=== PATIENT | female | born 1980 | race African-American/Black ===

== ENCOUNTER 2023-06-27 22:35 | Emergency (ER) | payer OTHER, SELFPAY ==
[2023-06-27 22:39] VITALS: BP 124/68; PULSE 65; RESP 18; TEMP 36.6; O2SAT 100; BMI 47.5
--- OUTSIDE RECORDS SUMMARY | 2023-06-28 00:47 | XMS_ITS | Continuity of Care Document ---
Author Name Unknown Organization [facility] Hussein lt Address [address] [place] [address]- Care Team Providers Care Medical Fee Clerk Name Role Phone James FONG, Emma Oreilly Primary Care Physician [phone] Encounter [facility] Date(s): 08/10/20 - 09/09/20 [facility] Adult [address] [place] [address]- [facility] Attending Physician: Candy Jones Admitting Physician: AdmtrCandy Referring Physician: Admtr, ArEstrada Allergies, Adverse Reactions, Alerts No Known Medication Allergies Immunizations Given and Recorded Vaccine Date Status Refusal Reason tetanus/diphtheria/pertussis, acel(Tdap) 1 02/21/18 Given 1Result Comment: [02/21/2018] [facility] [id number] 842 01 Medications aspirin 81 mg oral tablet 1 tablet = 81 mg, By Mouth, Daily, # 90 tablet, 0 Refills, Maintenance, 02/13/19 11:23:57 EDT, Tablet Start Date: 02/13/19 Status: Ordered Bydureon BCise 2 mg/0.85 mL subcutaneous suspension, extended release = 2 mg, Subcutaneous Infusion, Every 7 days, Take 2mg once weekly on the same day. E11.65, # 3.4 mL, 5 Refills, Maintenance, 06/14/20 9:36:00 EDT, [id number], 161.1, cm, 05/30/20 8:03:00 EDT,Height, 149.3, kg, 04/27/20 2:13:00 EDT, Dry Weight Start Date: 06/14/20 Status: Ordered cholecalciferol 50,000 intl units oral capsule 1 capsule = 50,000 International_Units, By Mouth, Every week, # 5 capsule, 0 Refills, Maintenance, 02/15/20 15:08:00 EDT, Capsule, [facility]/pharmacy #4471, 161.1, cm, 02/15/20 14:50:00 EDT, Height, 141, kg, 04/19/19 4:24:00 EDT, Dry Weight Start Date: 02/15/20 Status: Ordered ferrous sulfate 325 mg oral tablet See Instructions, 1 tablet By Mouth every other day, # 45 tablet, 3 Refills, Maintenance, 06/14/20 14:43:00 EDT, [facility]/pharmacy #2339, 161.1, cm, 05/30/20 8:03:00 EDT, Height, 149.3, kg, 04/27/20 2:13:00 EDT, Dry Weight Start Date: 06/14/20 Status: Ordered Freestyle Lite Lancets See Instructions, # 100 each, Refills 11, Tot. Refills 11, Maintenance, dm 2 E11.9 check blood sugars twice a day and as needed, 05/10/20 11:16:00 EDT, Supply, 161.1, cm, 04/28/20 11:33:00 EDT, Height, 149.3, kg, 04/27/20 2:13:00 EDT, Dry Weight Start Date: 05/10/20 Status: Ordered Freestyle Lite Monitor See Instructions, # 1 each, Maintenance, dm 2 E11.9 check blood sugars twice a day and as needed, 05/10/20 11:16:00 EDT, Supply, 161.1, cm, 04/28/20 11:33:00 EDT, Height, 149.3, kg, 04/27/20 2:13:00 EDT, Dry Weight Start Date: 05/10/20 Status: Ordered Freestyle Lite Test Strips See Instructions, # 100 each, Refills 11, Tot. Refills 11, Maintenance, dm 2 E11.9 check blood sugars twice a day and as needed, 05/10/20 11:16:00 EDT, Supply, 161.1, cm, 04/28/20 11:33:00 EDT, Height, 149.3, kg, 04/27/20 2:13:00 EDT, Dry Weight Start Date: 05/10/20 Status: Ordered metFORMIN 1000 mg oral tablet 1 tablet = 1,000 mg, By Mouth, 2 times a day, This is correct dose. 2000mg total daily dose., # 60 tablet, 5 Refills, Maintenance, 05/06/20 10:27:00 EDT, [facility]/pharmacy #2339, 161.1, cm, 04/28/20 11:33:00 EDT, Height, 149.3, kg, 04/27/20 2:13:00 EDT, D... Start Date: 05/06/20 Status: Ordered sertraline 50 mg oral tablet See Instructions, 1/2 tablet By Mouth Daily for 1 week then 1 tablet thereafter, # 30 tablet, 1 Refills, Maintenance, 07/02/20 9:23:00 EDT, [facility]/pharmacy #2339, 161.1, cm, 06/20/20 8:16:00 EDT, Height, 149.3, kg, 04/27/20 2:13:00 EDT, Dry Weight Start Date: 07/02/20 Status: Ordered terbinafine 1% topical cream 1 application, Topically, 2 times a day, # 15 Gm, 0 Refills, Maintenance, 04/18/20 15:15:00 EDT, Cream, [facility]/pharmacy #2339, 1 application Topically 2 times a day, 161.1, cm, 02/15/20 14:50:00 EDT, Height, 141, kg, 04/19/19 4:24:00 EDT, Dry Weight Start Date: 04/18/20 Status: Ordered Trulicity Pen 0.75 mg/0.5 mL subcutaneous solution = 0.75 mg, Subcutaneous Injection, Every 7 days, labs needed, # 4 each, 1 Refills, Maintenance, 08/31/20 9:35:00 EDT, [id number], 161.1, cm, 07/21/20 10:06:00 EDT, Height, 149.3, kg, 202:13:00 EDT, Dry Weight Start Date: 08/31/20 Stop Date: 10/26/20 Status: Ordered Problem List Condition Effective Dates Status Health Status Inform ant Morbid obesity with BMI of 6 0.0-69.9, adult(Confirmed) Active Chest pain(Confirmed) Active Depression(Confirmed) Active Iron deficiency anemia(Confirmed) Active Diabetes mellitus type II, uncontrolled(Confirmed) Active Social History Social History Type Response Smoking Status Never smoker; Tobacc o user in household: No entered on: 02/21/18 Sex
--- OUTSIDE RECORDS SUMMARY | 2023-06-28 00:47 | XMS_ITS | Continuity of Care Document ---
Author Name Unknown Organization [facility] Hussein lt Address [address] [place] [address]- Care Team Providers Care Experience Specialist Name Role Phone Casa FONG, Kay Villela Primary Care Physician Encounter [facility] Date(s): 10/10/21 - 11/19/21 [facility] Adult [address] [place] [address]- Attending Physician: Kay Cormier NP Referring Physician: Emma Ramirez NP Allergies, Adverse Reactions, Alerts Substance Reaction Severity Status amoxicillin throat closing Active clarithromycin throat closing Active vancomycin rash , itchy Persistent Moderate Active Immunizations Given and Recorded Vaccine Date Status Refusal Reason SARS-CoV-2 (COVID-19) mRNA BNT-162b2 vac 1 01/01/21 Recorded SARS-CoV-2 (COVID-19) mRNA BNT-162b2 vac 2 12/11/20 Recorded SARS-CoV-2 (COVID-19) mRNA BNT-162b2 vac 3 12/11/20 Recorded tetanus/diphtheria/pertussis, acel(Tdap) 4 02/21/18 Given 1Result Comment: Covid 19 mRNA lot [id number] exp 05-01-2021 [facility] 2Result Comment: covid-19 mRNa lot [id number] exp 03-31-2021 [facility] 3Result Comment: Covid-19 mRNA lot [id number] exp 03-31-2021 [facility] 4Result Comment: [02/21/2018] [facility] [id number] 842 01 Medications acetaminophen 325 mg oral tablet 650 mg, 2, tablet, By Mouth, Every 4 hours, Refills 0, Maintenance, 08/09/21 11:27:00 EDT, Partial fill upon patient request if the prescription is for a schedule II opioid drug. Start Date: 08/09/21 Status: Ordered aspirin 81 mg oral tablet 1 tablet = 81 mg, By Mouth, Daily, # 90 tablet, 0 Refills, Maintenance, 02/13/19 11:23:57 EDT, Tablet Start Date: 02/13/19 Status: Ordered Colace sodium 100 mg oral capsule 100 mg, 1, capsule, By Mouth, 2 times a day, with plenty of water, # 60 capsule, Refills 0, Tot. Refills 0, Maintenance, 08/09/21 11:27:00 EDT, Route to Pharmacy Electronically, [facility], Partial fill upon patient request if the prescr... Start Date: 08/09/21 Status: Ordered EPINEPHrine 0.3 mg injectable solution = 0.3 mg, Intramuscular, Once, PRN Anaphylactic Reaction, Use for anaphylactic reaction. may repeatif necessary, # 2 each, 0 Refills, Soft Stop, 01/10/21 12:01:00 EST, [facility]/pharmacy #[id number], Partial fill upon patient request if the prescription is for... Start Date: 01/10/21 Status: Ordered Freestyle Lite Lancets See Instructions, [...] sugars twice a day and as needed, 08/16/21 16:20:00 EDT, Supply, 160.02, cm, 08/15/21 10:52:00 EDT, Height, 137.4, kg, 08/08/21 9:30:00EDT, Dry Weight Start Date: 08/16/21 Status: Ordered Freestyle Lite Test Strips See Instructions, # 100 each, Refills 11, Tot. Refills 11, Maintenance, dm 2 E11.9 check blood sugars twice a day and as needed, 05/10/20 11:16:00 EDT, Supply, 161.1, cm, 04/28/20 11:33:00 EDT, Height, 149.3, kg, 04/27/20 2:13:00 EDT, Dry Weight Start Date: 05/10/20 Status: Ordered levothyroxine 0.1 mg oral tablet 1 tablet, By Mouth, Daily, # 30 tablet, 5 Refills, [facility] STORE 37002, 160.02, cm, 08/09/21 4:06:00 EDT, Height, 137.4, kg, 08/08/21 9:30:00 EDT, Dry Weight Start Date: 08/13/21 Status: Ordered Multivitamin Tablet By Mouth, Daily, 0 Refills, Maintenance, 07/27/21 12:14:00 EDT, Partial fill upon patient request if the prescription is for a schedule II opioid drug. Start Date: 07/27/21 Status: Ordered omeprazole 20 mg oral enteric coated capsule 1 capsule = 20 mg, By Mouth, 2 times a day, # 120 capsule, 4 Refills, Maintenance, 08/09/21 11:28:00 EDT, EC Capsule, [facility], Partial fill upon patient request if the prescription is for a schedule II opioid drug., 160.02, cm, ... Start Date: 08/09/21 Status: Ordered Trulicity Pen 1.5 mg/0.5 mL subcutaneous solution See Instructions, 0.5 ML SUBCUTANEOUS INJECTION EVERY WEEK,INSTR:ROTATE INJECTION SITES, # 2 Unknown, 6 Refills, 07/29/21 14:27:00 EDT, [facility]/pharmacy #[id number], 165, cm, 07/27/21 12:33:00 EDT, Height, 140.9, kg, 07/21/21 17:38:00 EDT, Dry Weight Start Date: 07/29/21 Status: Ordered Problem List Condition Effective Dates Status Health Status Inform ant Binge eating disorder, moder ate, in partial remission(Confirmed) Active Morbid obesity with BMI of 6 0.0-69.9, adult(Confirmed) Active Depression(Confirmed) Active Controlled diabetes mellitus(Confirmed) Active History of Helicobacter pylo ri infection(Confirmed) Active Iron deficiency anemia(Confirmed) Active Social History Social History Type Response Smoking Status Never smoker; Tobacc o user in household: No entered on: 02/21/18 Sex
--- OUTSIDE RECORDS SUMMARY | 2023-06-28 00:47 | XMS_ITS | Continuity of Care Document ---
Author Name Unknown Organization [facility] Address Unknown Care Team Providers Care Websphere Portal Developer Name Role Phone Emma Ramirez NP Primary Care Physician [phone] Encounter [facility] [place] Date(s): 07/31/21 - 08/07/21 [facility] Attending Physician: Aristides Oleary MD Referring Physician: Emma Ramirez NP Allergies, Adverse Reactions, Alerts Substance Reaction Severity Status amoxicillin throat closing Active clarithromycin throat closing Active Immunizations Given and Recorded Vaccine Date Status Refusal Reason SARS-CoV-2 (COVID-19) mRNA BNT-162b2 vac 1 01/01/21 Recorded SARS-CoV-2 (COVID-19) mRNA BNT-162b2 vac 2 12/11/20 Recorded SARS-CoV-2 (COVID-19) mRNA BNT-162b2 vac 3 12/11/20 Recorded tetanus/diphtheria/pertussis, acel(Tdap) 4 02/21/18 Given 1Result Comment: Covid 19 mRNA lot [id number] exp 05-01-2021 [facility] 2Result Comment: covid-19 mRNa lot [id number] exp 03-31-2021 [facility] 3Result Comment: Covid-19 mRNA lot [id number] exp 03-31-2021 [facility] 4Result Comment: [02/21/2018] [facility] [id number] 842 01 Medications aspirin 81 mg oral tablet 1 tablet = 81 mg, By Mouth, Daily, # 90 tablet, 0 Refills, Maintenance, 02/13/19 11:23:57 EDT, Tablet Start Date: 02/13/19 Status: Ordered EPINEPHrine 0.3 mg injectable solution = 0.3 mg, Intramuscular, Once, PRN Anaphylactic Reaction, Use for anaphylactic reaction. may repeatif necessary, # 2 each, 0 Refills, Soft Stop, 01/10/21 12:01:00 EST, [facility]/pharmacy #[id number], Partial fill upon patient request if the [...] Ordered levothyroxine 0.1 mg oral tablet 1 tablet = 100 mcg, By Mouth, Daily, # 30 tablet, 0 Refills, Maintenance, 07/27/21 12:13:00 EDT, Tablet, Partial fill upon patient request if the prescription is for a schedule II opioid drug. Start Date: 07/27/21 Status: Ordered metFORMIN 1000 mg oral tablet 1 tablet = 1,000 mg, By Mouth, 2 times a day, # 180 tablet, 3 Refills, Maintenance, 07/29/21 14:27:00 EDT, [facility]/pharmacy #2339, 165, cm, 07/27/21 12:33:00 EDT, Height, 140.9, kg, 07/21/21 17:38:00 EDT, Dry Weight Start Date: 07/29/21 Status: Ordered Multivitamin Tablet By Mouth, Daily, 0 Refills, Maintenance, 07/27/21 12:14:00 EDT, Partial fill upon patient request if the prescription is for a schedule II opioid drug. Start Date: 07/27/21 Status: Ordered Trulicity Pen 1.5 mg/0.5 mL subcutaneous solution See Instructions, 0.5 ML SUBCUTANEOUS INJECTION EVERY WEEK,INSTR:ROTATE INJECTION SITES, # 2 Unknown, 6 Refills, 07/29/21 14:27:00 EDT, [facility]/pharmacy #2339, 165, cm, 07/27/21 12:33:00 EDT, [...] ri infection(Confirmed) Active Iron deficiency anemia(Confirmed) Active Vital Signs Most recent to oldest [Reference Range]: 1 Height 165 cm (07/31/21 4:34 PM) Weight 141.1 kg (07/31/21 4:34 PM) Pulse Rate [55-90 bpm] 134 bpm *H* (07/31/21 4:34 PM) Body Mass Index [18.5-24.99] 51.83 *>HHI* (07/31/21 4:34 PM) Blood Pressure [90-138/55-84 mm Hg] 108/ 63mm Hg (07/31/21 4:34 PM) Respiratory Rate [16-30 br/min] 16 br/mi n (07/31/21 4:34 PM) Temperature [96.8-100.4 DegF] 97.9 DegF (07/31/21 4:34 PM) Blood pressure sites Arm, right (07/31/21 4:34 PM) Temperature Route Temporal (07/31/21 4:34 PM) Weight Obtained Via Standing scale (07/31/21 4:34 PM) Social History Social History Type Response Smoking Status Never smoker; Tobacc o user in household: No entered on: 02/21/18 Sex
--- OUTSIDE RECORDS SUMMARY | 2023-06-28 00:47 | XMS_ITS | Continuity of Care Document ---
Author Name Unknown Organization [facility] Hussein lt Address [address] [place] [address]- Care Team Providers Care Party Chief Name Role Phone Emma Ramirez NP Primary Care Physician [phone] Encounter [facility] [place] Date(s): 08/10/20 - 09/09/20 [facility] Adult [address] [place] [address]- [facility] Attending Physician: Emma Ramirez NP Allergies, Adverse Reactions, Alerts No Known Medication Allergies Immunizations Given and Recorded Vaccine Date Status Refusal Reason tetanus/diphtheria/pertussis, acel(Tdap) 1 02/21/18 Given 1Result Comment: [02/21/2018] [facility] [id number] 842 01 Medications aspirin 81 mg oral [...] 0 Refills, Maintenance, 02/15/20 15:08:00 EDT, Capsule, [id number], 161.1, cm, 02/15/20 14:50:00 EDT, Height, 141, kg, 04/19/19 4:24:00 EDT, Dry Weight Start Date: 02/15/20 Status: Ordered ferrous sulfate 325 mg oral tablet See Instructions, 1 tablet By Mouth every other day, # 45 tablet, 3 Refills, Maintenance, 06/14/20 14:43:00 EDT, [facility]/pharmacy #2339, 161.1, cm, 05/30/20 8:03:00 EDT, [...] tablet, 5 Refills, Maintenance, 05/06/20 10:27:00 EDT, [facility], 161.1, cm, 04/28/20 11:33:00 EDT, Height, 149.3, kg, 04/27/20 2:13:00 EDT, D... Start Date: 05/06/20 Status: Ordered sertraline 50 mg oral tablet See Instructions, 1/2 tablet By Mouth Daily for 1 week then 1 tablet thereafter, # 30 tablet, 1 Refills, Maintenance, 07/02/20 9:23:00 EDT, [facility], 161.1, cm, 06/20/20 8:16:00 EDT, Height, 149.3, kg, 04/27/20 2:13:00 EDT, Dry Weight Start Date: 07/02/20 Status: Ordered terbinafine 1% topical cream 1 application, Topically, 2 times a day, # 15 Gm, 0 Refills, Maintenance, 04/18/20 15:15:00 EDT, Cream, [facility]/pharmacy #2339, 1 application Topically 2 times a day, 161.1, cm, 02/15/20 14:50:00 EDT, Height, 141, kg, 04/19/19 4:24:00 EDT, Dry Weight Start Date: 04/18/20 Status: Ordered Trulicity Pen 0.75 mg/0.5 mL subcutaneous solution = 0.75 mg, Subcutaneous Injection, Every 7 days, labs needed, # 4 each, 1 Refills, Maintenance, 08/31/20 9:35:00 EDT, [facility]/pharmacy #2339, 161.1, cm, 07/21/20 10:06:00 EDT, Height, 149.3, kg, :13:00 EDT, Dry Weight Start Date: 08/31/20 Stop [...]
--- OUTSIDE RECORDS SUMMARY | 2023-06-28 00:47 | XMS_ITS | Continuity of Care Document ---
Author Name Unknown Organization [facility] Hussein lt Address [address] [place] [address]- Care Team Providers Care Conditioning Coach Name Role Phone James FONG, Emma Oreilly Primary Care Physician [place] [facility] 05/21/21 - 06/20/21 [facility] Adult [address] [place] [address]- Allergies, Adverse Reactions, Alerts Substance Reaction Severity Status amoxicillin/clarithromycin/omeprazole 1 Swelling of th roat Active 1No SOB, Resolved with Benedryl 50mg PO. Immunizations Given and Recorded Vaccine Date Status Refusal Reason SARS-CoV-2 (COVID-19) mRNA BNT-162b2 vac 1 01/01/21 Recorded SARS-CoV-2 (COVID-19) mRNA BNT-162b2 vac 2 12/11/20 Recorded SARS-CoV-2 (COVID-19) mRNA BNT-162b2 vac 3 12/11/20 Recorded tetanus/diphtheria/pertussis, acel(Tdap) 4 02/21/18 Given 1Result Comment: Covid 19 mRNA lot [id number] exp 05-01-2021 [facility] 2Result Comment: covid-19 mRNa lot [id number] exp 03-31-2021 [facility] 3Result Comment: Covid-19 mRNA lot [id number] exp 03-31-2021 [facility] 4Result Comment: [02/21/2018] [facility] [id number] 842 01 Medications aspirin 81 mg oral [...] mL, 5 Refills, Maintenance, 06/14/20 9:36:00 EDT, [facility]/pharmacy #2339, 161.1, cm, 05/30/20 8:03:00 EDT,Height, 149.3, kg, 04/27/20 2:13:00 EDT, Dry Weight Start Date: 06/14/20 Status: Ordered EPINEPHrine 0.3 mg injectable solution = 0.3 mg, Intramuscular, Once, PRN Anaphylactic Reaction, Use for anaphylactic reaction. may repeatif necessary, # 2 each, 0 Refills, Soft Stop, 01/10/21 12:01:00 EST, [facility]/pharmacy #[id number], Partial fill upon patient request if [...] Weight Start Date: 05/10/20 Status: Ordered levothyroxine 0.112 mg oral tablet 1 tablet = 112 mcg, By Mouth, Daily, Labs due June 2021, # 90 tablet, 0 Refills, Maintenance, 03/21/21 13:09:00 EDT, Tablet, [facility]/pharmacy #2339, Partial fill upon patient request if the prescription is for a schedule II opioid drug., 161.1, cm, ... Start Date: 03/21/21 Status: Ordered metFORMIN 1000 mg oral tablet 1 tablet = 1,000 mg, By Mouth, 2 times a day, # 180 tablet, 3 Refills, Maintenance, 10/06/20 11:00:00 EST, [facility]/pharmacy #2339, 161.1, cm, 10/06/20 10:55:00 EST, Height, 149.3, kg, 04/27/20 2:13:00 EDT, Dry Weight Start Date: 10/06/20 Status: Ordered Protonix 20 mg oral delayed release tablet 1 tablet = 20 mg, By Mouth, 2 times a day, # 28 tablet, 0 Refills, Maintenance, 05/11/21 10:56:00 EDT, CR Tablet, 161, cm, 05/05/21 11:42:00 EDT, Height, 149.3, kg, 04/27/20 2:13:00 EDT, Dry Weight Start Date: 05/11/21 Stop Date: 05/25/21 Status: Ordered sertraline 50 mg oral tablet See Instructions, 1/2 tablet By Mouth Daily for 1 week then 1 tablet thereafter, # 30 tablet, 1 Refills, Maintenance, 07/02/20 9:23:00 EDT, [facility], 161.1, cm, 06/20/20 8:16:00 EDT, Height, 149.3, kg, 04/27/20 2:13:00 EDT, Dry Weight Start Date: 07/02/20 Status: Ordered Trulicity Pen 1.5 mg/0.5 mL subcutaneous solution See Instructions, 0.5 ML SUBCUTANEOUS INJECTION EVERY WEEK,INSTR:ROTATE INJECTION SITES, # 2 Unknown, 6 Refills, Maintenance, [facility], 161.1, cm, 10/06/20 10:55:00 EST, Height, 149.3, kg, 04/27/20 2:13:00 EDT, Dry Weight Start Date: 11/21/20 Status: Ordered Problem List Condition Effective Dates Status Health Status Inform ant Binge eating disorder, moder ate, in partial remission(Confirmed) Active Morbid obesity with BMI of 6 0.0-69.9, adult(Confirmed) Active Chest pain(Confirmed) Active Depression(Confirmed) Active Controlled diabetes mellitus(Confirmed) Active Iron deficiency anemia(Confirmed) Active Social History Social History Type Response Smoking Status Never smoker; Tobacc o user in household: No entered on: 02/21/18 Sex
--- OUTSIDE RECORDS SUMMARY | 2023-06-28 00:47 | XMS_ITS | Continuity of Care Document ---
Author Name Unknown Organization [facility] Address [address] [place] [address]- Care Team Providers Care Research Geneticist Name Role Phone Emma Ramirez NP Primary Care Physician [phone] Encounter [facility] [place] Date(s): 06/01/20 - 09/29/20 [facility] [address] [place] [address]- [facility] Attending Physician: Lizzette Giles MD Admitting Physician: Lizzette Giles MD Referring Physician: Emma Ramirez NP Allergies, Adverse Reactions, Alerts No Known Medication Allergies Immunizations Given and Recorded Vaccine Date Status Refusal Reason tetanus/diphtheria/pertussis, acel(Tdap) 1 02/21/18 Given 1Result Comment: [02/21/2018] [facility] [id number] 842 01 Medications aspirin 81 mg oral [...] 5 Refills, Maintenance, 06/14/20 9:36:00 EDT, [facility], 161.1, cm, 05/30/20 8:03:00 EDT,Height, 149.3, kg, 04/27/20 2:13:00 EDT, Dry Weight Start Date: 06/14/20 Status: Ordered cholecalciferol 50,000 intl units oral capsule 1 capsule = 50,000 International_Units, By Mouth, Every week, # 5 capsule, 0 Refills, Maintenance, 02/15/20 15:08:00 EDT, Capsule, [facility]/pharmacy #4471, 161.1, cm, 02/15/20 14:50:00 EDT, Height, 141, kg, 04/19/19 4:24:00 EDT, Dry Weight Start Date: 02/15/20 Status: Ordered ferrous sulfate 325 mg oral tablet See Instructions, 1 tablet By Mouth every other day, # 45 tablet, 3 Refills, Maintenance, 06/14/20 14:43:00 EDT, [facility]/pharmacy #2339, 161.1, cm, 05/30/20 8:03:00 EDT, [...] tablet, 5 Refills, Maintenance, 05/06/20 10:27:00 EDT, [facility]/pharmacy #2339, 161.1, cm, 04/28/20 11:33:00 EDT, [...] 0 Refills, Maintenance, 04/18/20 15:15:00 EDT, Cream, [facility], 1 application Topically 2 times a [...]
--- OUTSIDE RECORDS SUMMARY | 2023-06-28 00:47 | XMS_ITS | Continuity of Care Document ---
Author Name Unknown Organization [facility] Hussein Address [address] [place] [address]- Care Team Providers Care Cost Recorder Name Role Phone James FONG, Emma Oreilly Primary Care Physician [phone] Encounter [facility] [place] Date(s): 07/07/21 - 10/08/21 [facility] [address] [place] [address]- Attending Physician: Emma Ramirez NP Referring Physician: Dajuan Naranjo MD Allergies, Adverse Reactions, Alerts Substance Reaction Severity [...] Given 1Result Comment: Covid 19 mRNA lot [id number] exp 05-01-2021 [facility] 2Result Comment: covid-19 mRNa lot [id number] exp 03-31-2021 [facility] 3Result Comment: Covid-19 mRNA lot [id number] exp 03-31-2021 [facility] 4Result Comment: [02/21/2018] [facility] [id number] 842 01 Medications acetaminophen 325 mg oral [...] 11:27:00 EDT, Route to Pharmacy Electronically, [facility], Partial fill upon patient request if the prescr... Start Date: 08/09/21 Status: Ordered EPINEPHrine 0.3 mg injectable solution = 0.3 mg, Intramuscular, Once, PRN Anaphylactic Reaction, Use for anaphylactic reaction. may repeatif necessary, # 2 each, 0 Refills, Soft Stop, 01/10/21 12:01:00 EST, [facility]/pharmacy #2332, Partial fill upon patient request if the [...] Mouth, Daily, # 30 tablet, 5 Refills, [facility] STORE [address]42, 160.02, cm, 08/09/21 4:06:00 EDT, Height, 137.4, [...] Maintenance, 08/09/21 11:28:00 EDT, EC Capsule, [facility], Partial fill upon patient request if the prescription is for a schedule II opioid drug., 160.02, cm, ... Start Date: 08/09/21 Status: Ordered Trulicity Pen 1.5 mg/0.5 mL subcutaneous solution See Instructions, 0.5 ML SUBCUTANEOUS INJECTION EVERY WEEK,INSTR:ROTATE INJECTION SITES, # 2 Unknown, 6 Refills, 07/29/21 14:27:00 EDT, [facility]/pharmacy #2339, 165, cm, 07/27/21 12:33:00 EDT, Height, [...] user in household: No entered on: 02/21/18 Sex"
--- OUTSIDE RECORDS SUMMARY | 2023-06-28 00:47 | XMS_ITS | Continuity of Care Document ---
Author Name Unknown Organization [facility] Aditya Phillips Hussein Address [address] [place] [address]- Care Team Providers Care Veneer Sorter Name Role Phone James FONG, Emma Oreilly Primary Care Physician Encounter [facility] Date(s): 02/01/20 - 04/27/20 [facility] Adult [address] [place] [address]- [facility] Encounter Diagnosis Annual physical exam(Discharge Diagnosis) - 03/28/20 Morbid obesity(Discharge Diagnosis) - 03/28/20 Prediabetes(Discharge Diagnosis) - 03/28/20 Iron deficiency anemia(Discharge Diagnosis) - 03/28/20 Depression(Discharge Diagnosis) - 03/28/20 Attending Physician: Not on Staff, Attending MD Allergies, Adverse Reactions, Alerts No Known Medication Allergies Immunizations Given and Recorded Vaccine Date Status Refusal Reason tetanus/diphtheria/pertussis, acel(Tdap) 1 02/21/18 Given 1Result Comment: [02/21/2018] [facility] [id number] 842 01 Medications aspirin 81 mg oral tablet 1 tablet = 81 mg, By Mouth, Daily, # 90 tablet, 0 Refills, Maintenance, 02/13/19 11:23:57 EDT, Tablet Start Date: 02/13/19 Status: Ordered Bactrim DS 800 mg-160 mg oral tablet 1 tablet, By Mouth, 2 times a day, for 10 days, # 20 tablet, 0 Refills, Acute 04/28/20 15:14:00 EDT, 04/18/20 15:14:00 EDT, Tablet, [id number], 1 tablet By Mouth 2 times a day,x10 days, 161.1, cm, 02/15/20 14:50:00 EDT, Height, 141, kg, ... Start Date: 04/18/20 Stop Date: 04/28/20 Status: Ordered cholecalciferol 50,000 intl units oral capsule 1 capsule = 50,000 International_Units, By Mouth, Every week, # 5 capsule, 0 Refills, Maintenance, 02/15/20 15:08:00 EDT, Capsule, [facility]/pharmacy #4471, 161.1, cm, 02/15/20 14:50:00 EDT, Height, 141, kg, 04/19/19 4:24:00 EDT, Dry Weight Start Date: 02/15/20 Status: Ordered ferrous sulfate 325 mg oral tablet See Instructions, 1 tablet By Mouth QOD, # 30 tablet, 0 Refills, Maintenance, 04/11/20 16:08:00 EDT, Tablet, [facility]/pharmacy #2339, 161.1, cm, 02/15/20 14:50:00 EDT, Height, 141, kg, 04/19/19 4:24:00 EDT, Dry Weight Start Date: 04/11/20 Status: Ordered metFORMIN 1000 mg oral tablet 1 tablet = 1,000 mg, By Mouth, 2 times a day, This is correct dose. 2000mg total daily dose., # 60 tablet, 0 Refills, Maintenance, 02/15/20 16:07:00 EDT, [facility]/pharmacy #[id number], 161.1, cm, 02/15/20 14:50:00 EDT, Height, 141, kg, 04/19/19 4:24:00 EDT, Dry... Start Date: 02/15/20 Status: Ordered terbinafine 1% topical cream 1 application, Topically, 2 times a day, # 15 Gm, 0 Refills, Maintenance, 04/18/20 15:15:00 EDT, Cream, [facility]/pharmacy #2339, 1 application Topically 2 times a day, 161.1, cm, 02/15/20 14:50:00 EDT, Height, 141, kg, 04/19/19 4:24:00 EDT, Dry Weight Start Date: 04/18/20 Status: Ordered Wellbutrin XL 150 mg/24 hours oral tablet, extended release 1 tablet = 150 mg, By Mouth, Every 24 hours, # 90 tablet, 3 Refills, Maintenance, 02/13/19 11:48:14EDT, ER Tablet Start Date: 02/13/19 Status: Ordered Problem List Condition Effective Dates Status Health Status Inform ant Chest pain(Confirmed) Active Depression(Confirmed) Active Skin infection(Confirmed) Active Iron deficiency anemia(Confirmed) Active Morbid obesity(Confirmed) Active Prediabetes(Confirmed) Active Diagnosis Diagnosis Type Effective Dates Health Status Clinical Service Informant Annual physical exam Discharge Diagnosis 03/28/20 Morbid obesity Discharge Diagnosis 03/28/20 Prediabetes Discharge Diagnosis 03/28/20 Iron deficiency anemia Discharge Diagnosis 03/28/20 Depression Discharge Diagnosis 03/28/20 Social History Social History Type Response Smoking Status Never smoker; Tobacc o user in household: No entered on: 02/21/18 Sex
--- OUTSIDE RECORDS SUMMARY | 2023-06-28 00:47 | XMS_ITS | Continuity of Care Document ---
Author Name Unknown Organization [facility] Hussein lt Address [address] [place] [address]- Care Team Providers Care Passenger Rate Clerk Name Role Phone James FONG, Emma Oreilly Primary Care Physician [phone] Encounter [facility] Date(s): 06/09/20 - 07/09/20 [facility] Adult [address] [place] [address]- [facility] Allergies, Adverse Reactions, Alerts No Known Medication Allergies Immunizations Given and Recorded Vaccine Date Status Refusal Reason tetanus/diphtheria/pertussis, acel(Tdap) 1 02/21/18 Given 1Result Comment: [02/21/2018] [facility] [address] 842 01 Medications aspirin 81 mg oral [...] Trulicity Pen 0.75 mg/0.5 mL subcutaneous solution 0.5 mL = 0.75 mg, Subcutaneous Injection, Every week, Take 0.75mg once weekly x 4 weeks. Call after1 month to increase dose. E11.65, # 2 mL, 0 Refills, Maintenance, 06/20/20 10:50:00 EDT, Solution, [facility]/pharmacy #2339, 161.1, cm, 06/20/20 8:16:00 EDT,... Start Date: 06/20/20 Status: Ordered Problem List Condition Effective Dates Status Health Status Inform ant Chest pain(Confirmed) Active Depression(Confirmed) Active Iron deficiency anemia(Confirmed) Active Morbid obesity(Confirmed) Active Diabetes mellitus type II, uncontrolled(Confirmed) Active Social History Social History Type Response Smoking Status Never smoker; Tobacc o user in household: No entered on: 02/21/18 Sex
--- OUTSIDE RECORDS SUMMARY | 2023-06-28 00:47 | XMS_ITS | Continuity of Care Document ---
Author Name Unknown Organization [facility] Address Unknown Care Team Providers Care Senior Operations Analyst Name Role Phone James FONG, Emma Oreilly Primary Care Physician [place] [facility] [place]/21[place]21 - 08/28/21 [facility] Attending Physician: Anirudh CONTEH, Aristides Referring Physician: Dajuan Naranjo MD Allergies, Adverse [...] Given 1Result Comment: Covid 19 mRNA lot [id number] exp 05-01-2021 [facility] 2Result Comment: covid-19 mRNa lot [id number] exp 03-31-2021 [facility] 3Result Comment: Covid-19 mRNA lot [id number] exp 03-31-2021 [facility] 4Result Comment: [02/21/2018] [facility] [address] 842 01 Medications acetaminophen 325 mg oral [...] 08/09/21 11:27:00 EDT, Route to Pharmacy Electronically, [facility], Partial fill upon patient request if the prescr... Start Date: 08/09/21 Status: Ordered EPINEPHrine 0.3 mg injectable solution = 0.3 mg, Intramuscular, Once, PRN Anaphylactic Reaction, Use for anaphylactic reaction. may repeatif necessary, # 2 each, 0 Refills, Soft Stop, 01/10/21 12:01:00 EST, [facility]/pharmacy #2339, Partial fill upon patient request if [...] Mouth, Daily, # 30 tablet, 5 Refills, [facility] ST[facility] [address]87, 160.02, cm, 08/09/21 4:06:00 EDT, Height, 137.4, [...] Refills, Maintenance, 08/09/21 11:28:00 EDT, EC Capsule, [facility], Partial fill upon patient request if the prescription is for a schedule II opioid drug., 160.02, cm, ... Start Date: 08/09/21 Status: Ordered Trulicity Pen 1.5 mg/0.5 mL subcutaneous solution See Instructions, 0.5 ML SUBCUTANEOUS INJECTION EVERY WEEK,INSTR:ROTATE INJECTION SITES, # 2 Unknown, 6 Refills, 07/29/21 14:27:00 EDT, [facility]/pharmacy #2339, 165, cm, 07/27/21 12:33:00 EDT, Height, [...] recent to oldest [Reference Range]: 1 Height 160.02 cm (08/21/21 10:46 AM) Weight 128.4 kg (08/21/21 10:46 AM) Pulse Rate [55-90 bpm] 78 bpm (08/21/21 10:46 AM) Body Mass Index [18.5-24.99] 50.14 *>HHI* (08/21/21 10:46 AM) Blood Pressure [90-138/55-84 mm Hg] 121/ 84mm Hg (08/21/21 10:46 AM) Respiratory Rate [16-30 br/min] 16 br/mi n (08/21/21 10:46 AM) Temperature [96.8-100.4 DegF] 96.8 DegF (08/21/21 10:46 AM) Blood pressure sites Arm, left (08/21/21 10:46 AM) Temperature Route Temporal (08/21/21 10:46 AM) Social History Social History Type Response Smoking Status Never smoker; Tobacc o user in household: No entered on: 02/21/18 Sex
--- OUTSIDE RECORDS SUMMARY | 2023-06-28 00:47 | XMS_ITS | Continuity of Care Document ---
Author Name Unknown Organization [facility] Address [address] [place] [address]- Care Team Providers Care Counterintelligence/Humint Specialist Name Role Phone Emma Ramirez NP Primary Care Physician [phone] Encounter [facility] Date(s): 05/26/20 - 07/23/20 [facility] [address] [place] [address]- [facility] Attending Physician: Laura Sullivan MD Referring Physician: Emma Ramirez NP Allergies, Adverse Reactions, Alerts No Known Medication Allergies Immunizations Given and Recorded Vaccine Date Status Refusal Reason tetanus/diphtheria/pertussis, acel(Tdap) 1 02/21/18 Given 1Result Comment: [02/21/2018] [facility] [address] 842 01 Medications aspirin 81 mg oral [...] 0 Refills, Maintenance, 02/15/20 15:08:00 EDT, Capsule, [facility]/pharmacy #4471, 161.1, cm, 02/15/20 14:50:00 EDT, Height, 141, kg, 04/19/19 4:24:00 EDT, Dry Weight Start Date: 02/15/20 Status: Ordered ferrous sulfate 325 mg oral tablet See Instructions, 1 tablet By Mouth every other day, # 45 tablet, 3 Refills, Maintenance, 06/14/20 14:43:00 EDT, [facility]/pharmacy #2339, 161.1, cm, 05/30/20 8:03:00 EDT, Height, [...] tablet, 5 Refills, Maintenance, 05/06/20 10:27:00 EDT, [facility]/pharmacy #2339, 161.1, cm, 04/28/20 11:33:00 EDT, Height, 149.3, kg, 04/27/20 2:13:00 EDT, D... Start Date: 05/06/20 Status: Ordered sertraline 50 mg oral tablet See Instructions, 1/2 tablet By Mouth Daily for 1 week then 1 tablet thereafter, # 30 tablet, 1 Refills, Maintenance, 07/02/20 9:23:00 EDT, [facility]/pharmacy #2339, 161.1, cm, 06/20/20 8:16:00 EDT, Height, 149.3, kg, 04/27/20 2:13:00 EDT, Dry Weight Start Date: 07/02/20 Status: Ordered terbinafine 1% topical cream 1 application, Topically, 2 times a day, # 15 Gm, 0 Refills, Maintenance, 04/18/20 15:15:00 EDT, Cream, [facility]/pharmacy #2339, 1 application Topically 2 times a [...] 0 Refills, Maintenance, 06/20/20 10:50:00 EDT, Solution, [facility]/pharmacy #2339, 161.1, cm, 06/20/20 8:16:00 EDT,... Start [...]
--- OUTSIDE RECORDS SUMMARY | 2023-06-28 00:47 | XMS_ITS | Continuity of Care Document ---
Author Name Unknown Organization [facility] Hussein Address [address] [place] [address]- Care Team Providers Care House Mover Name Role Phone James FONG, Emma Oreilly Primary Care Physician [phone] Encounter [facility] Date(s): 08/30/20 - 09/29/20 [facility] Adult [address] [place] [address]- [facility] Allergies, Adverse Reactions, Alerts No Known Medication Allergies Immunizations Given and Recorded Vaccine Date Status Refusal Reason tetanus/diphtheria/pertussis, acel(Tdap) 1 02/21/18 Given 1Result Comment: [02/21/2018] [facility] [id number] 842 01 Medications aspirin 81 mg oral [...] tablet, 3 Refills, Maintenance, 06/14/20 14:43:00 EDT, [facility]/pharmacy #2339, 161.1, cm, 05/30/20 8:03:00 EDT, [...] times a day, This is correct dose. 1999mg total daily dose., # 60 tablet, 5 [...] 0 Refills, Maintenance, 04/18/20 15:15:00 EDT, Cream, [facility]/pharmacy #2339, 1 application Topically 2 times [...]
--- OUTSIDE RECORDS SUMMARY | 2023-06-28 00:47 | XMS_ITS | Continuity of Care Document ---
Author Name Unknown Organization [facility] Hussein lt Address [address] [place] [address]- Care Team Providers Care Tumbling And Rolling Supervisor Name Role Phone Casa FONG, Kay Villela Primary Care Physician [place] [facility] Date(s): 08/16/22 - 11/10/22 [facility] Adult [address] [place] [address]- Attending Physician: Not on Staff, Attending MD Referring Physician: Kay Cormier NP Allergies, Adverse Reactions, Alerts Substance Reaction [...] Given 1Result Comment: Covid 19 mRNA lot [id number] exp 05-01-2021 [facility] 2Result Comment: covid-19 mRNa lot [id number] exp 03-31-2021 [facility] 3Result Comment: Covid-19 mRNA lot [id number] exp 03-31-2021 [facility] 4Result Comment: [02/21/2018] [facility] [id number] 842 01 Medications acetaminophen 325 mg oral [...] 08/09/21 11:27:00 EDT, Route to Pharmacy Electronically, [facility], Partial fill upon patient request if the prescr... Start Date: 08/09/21 Status: Ordered EPINEPHrine 0.3 mg injectable solution = 0.3 mg, Intramuscular, Once, PRN Anaphylactic Reaction, Use for anaphylactic reaction. may repeatif necessary, # 2 each, 0 Refills, Soft Stop, 01/10/21 12:01:00 EST, [facility]/pharmacy #5186, Partial fill upon patient request if the [...] tablet 1 tablet, By Mouth, Daily, # 90 tablet, 1 Refills, [place] STORE [address]40, 160.02, cm, 10/02/21 10:20:00 EDT, Height, 137.4, kg, 08/08/21 9:30:00 EDT, Dry Weight Start Date: 01/30/22 Status: Ordered Multivitamin Tablet By Mouth, Daily, 0 Refills, Maintenance, 07/27/21 12:14:00 EDT, Partial fill upon patient request if the prescription is for a schedule II opioid drug. Start Date: 07/27/21 Status: Ordered omeprazole 20 mg oral enteric coated capsule 1 capsule = 20 mg, By Mouth, 2 times a day, # 120 capsule, 4 Refills, Maintenance, 08/09/21 11:28:00 EDT, EC Capsule, [facility], Partial fill upon patient request if the prescription is for a schedule II opioid drug., 160.02, cm, ... Start Date: 08/09/21 Status: Ordered Trulicity Pen 1.5 mg/0.5 mL subcutaneous solution See Instructions, INJECT 0.5ML SUBCUTANEOUSLY EVERY WEEK. ROTATE INFECTION SITES., # 2 Unknown, 6 Refills, Maintenance, 08/17/22 13:33:00 EDT, [place] STORE [address]376, 160.02, cm, 10/02/21 10:20:00 EDT, Height, 137.4, kg, 08/08/21 9:30:00 EDT, Dry Weight Start Date: 08/17/22 Status: Ordered Problem List Condition Confirmation Course Effective Dates Status Health St atus Informant Binge eating disorder, moderate, in partial remission Confirmed Active Morbid obesity with BMI of 60.0-69.9, adult Confirmed Active Depression Confirmed Active Controlled diabetes mellitus Confirmed Active History of Helicobacter pylori infection Confirmed Active Iron deficiency anemia Confirmed Active Social History Social History Type Response Smoking Status Never smoker; Tobacc o user in household: No entered on: 02/21/18 Sex Patient Care team information Care Team Personnel Name: Ivy Pardo RN Position: S RN Member Role: Primary Care Nurse Name: Kay Cormier NP Position: [facility] PCO Associate Professional Member Role: PCP Address: Address: [address] [place] [address]- Name: Marilyn Razo RN Position: [facility] RN Member Role: Primary Care Nurse Name: Shazia Hughes RN Position: S RN Member Role: Primary Care Nurse Care Team Related Persons Name: FINA SALMERON Address: home [address] [place] [address] Name: JAMA MALONE Address: home [address] [place] [address] Name: KEYON WHITE
--- OUTSIDE RECORDS SUMMARY | 2023-06-28 00:47 | XMS_ITS | Continuity of Care Document ---
Author Name Unknown Organization [facility] Hussein lt Address [address] [place] [address]- Care Team Providers Care Coal Crusher Operator Name Role Phone James FONG, Emma Oreilly Primary Care Physician [place] [facility] [place] 07/09/20 [facility] Adult [address] [place] [address]- [facility] Allergies, Adverse Reactions, Alerts No Known Medication Allergies Immunizations Given and Recorded Vaccine Date Status Refusal Reason tetanus/diphtheria/pertussis, acel(Tdap) 1 02/21/18 Given 1Result Comment: [02/21/2018] [facility] [id number] 842 01 Medications aspirin 81 mg oral [...] Refills, Maintenance, 02/15/20 15:08:00 EDT, [facility], 161.1, cm, 02/15/20 14:50:00 EDT, Height, 141, [...]
--- OUTSIDE RECORDS SUMMARY | 2023-06-28 00:47 | XMS_ITS | Continuity of Care Document ---
Author Name Unknown Organization [facility] Hussein Address [address] [place] [address]- Care Team Providers Care Business Test Analyst Name Role Phone James FONG, Emma Oreilly Primary Care Physician [phone] [place] [facility] Date(s[place] 07/05/21 - 08/04/21 [facility] Adult [address] [place] [address]- Allergies, Adverse Reactions, Alerts Substance Reaction Severity Status amoxicillin throat closing Active clarithromycin throat closing Active Immunizations Given and Recorded Vaccine Date Status Refusal Reason SARS-CoV-2 (COVID-19) mRNA BNT-162b2 vac 1 01/01/21 Recorded SARS-CoV-2 (COVID-19) mRNA BNT-162b2 vac 2 12/11/20 Recorded SARS-CoV-2 (COVID-19) mRNA BNT-162b2 vac 3 12/11/20 Recorded tetanus/diphtheria/pertussis, acel(Tdap) 4 02/21/18 Given 1Result Comment: Covid 19 mRNA lot [id number] exp 05-01-2021 [facility] 2Result Comment: covid-19 mRNa lot [id number] exp 03-31-2021 [facility] 3Result Comment: Covid-19 mRNA lot [id number] exp 03-31-2021 [facility] 4Result Comment: [02/21/2018] [facility] [address] 842 01 Medications aspirin 81 mg oral tablet 1 tablet = 81 mg, By Mouth, Daily, # 90 tablet, 0 Refills, Maintenance, 02/13/19 11:23:57 EDT, Tablet Start Date: 02/13/19 Status: Ordered EPINEPHrine 0.3 mg injectable solution = 0.3 mg, Intramuscular, Once, PRN Anaphylactic Reaction, Use for anaphylactic reaction. may repeatif necessary, # 2 each, 0 Refills, Soft Stop, 01/10/21 12:01:00 EST, [facility]/pharmacy #2339, Partial fill upon patient request if [...] tablet, 3 Refills, Maintenance, 07/29/21 14:27:00 EDT, [facility]/pharmacy #2339, 165, cm, 07/27/21 12:33:00 EDT, Height, [...] 2 Unknown, 6 Refills, 07/29/21 14:27:00 EDT, [facility]/pharmacy #2339, 165, cm, 07/27/21 12:33:00 EDT, Height, [...]
--- OUTSIDE RECORDS SUMMARY | 2023-06-28 00:47 | XMS_ITS | Continuity of Care Document ---
Author Name Unknown Organization [facility] Address [address] [place] [address]- Care Team Providers Care Steel Rod Buster Name Role Phone James FONG, Emma Oreilly Primary Care Physician Encounter [facility] Date(s): 07/21/20 - 08/20/20 [facility] [address] [place] [address]- [facility] Attending Physician: Candy Jones Admitting Physician: AdmtrCandy Referring Physician: Admtr, ArEstrada Allergies, Adverse Reactions, Alerts No Known Medication Allergies Immunizations Given and Recorded Vaccine Date Status Refusal Reason tetanus/diphtheria/pertussis, acel(Tdap) 1 02/21/18 Given 1Result Comment: [02/21/2018] [facility] [id number] 842 01 Medications aspirin 81 mg oral [...] 0 Refills, Maintenance, 02/15/20 15:08:00 EDT, Capsule, [facility]/pharmacy #4471, 161.1, cm, 02/15/20 14:50:00 EDT, Height, 141, kg, 04/19/19 4:24:00 EDT, Dry Weight Start Date: 02/15/20 Status: Ordered ferrous sulfate 325 mg oral tablet See Instructions, 1 tablet By Mouth every other day, # 45 tablet, 3 Refills, Maintenance, 06/14/20 14:43:00 EDT, [facility]/pharmacy #2339, 161.1, cm, 05/30/20 8:03:00 [...] tablet, 5 Refills, Maintenance, 05/06/20 10:27:00 EDT, [facility]/pharmacy #2339, 161.1, cm, 04/28/20 11:33:00 [...] 0 Refills, Maintenance, 04/18/20 15:15:00 EDT, Cream, [facility]/pharmacy #2339, 1 application Topically 2 [...] E11.65, # 2 mL, 0 Refills, Maintenance, 08/07/20 10:46:00 EDT, Solution, [facility]/pharmacy #2339, 161.1, cm, 07/21/20 10:06:00 EDT... Start Date: 08/07/20 Status: Ordered Problem List Condition Effective Dates Status Health Status Inform ant Morbid obesity with BMI of 6 0.0-69.9, adult(Confirmed) Active Chest pain(Confirmed) Active Depression(Confirmed) Active Iron deficiency anemia(Confirmed) Active Diabetes mellitus type II, uncontrolled(Confirmed) Active Social History Social History Type Response Smoking Status Never smoker; Tobacc o user in household: No entered on: 02/21/18 Sex
--- OUTSIDE RECORDS SUMMARY | 2023-06-28 00:47 | XMS_ITS | Continuity of Care Document ---
Author Name Unknown Organization [facility] Hussein lt Address [address] [place] [address]- Care Team Providers Care Case Folder Name Role Phone Emma Ramirez NP Primary Care Physician Encounter [facility] [place] Date(s): 01/10/21 - 01/17/21 [facility] Adult [address] [place] [address]- Encounter Diagnosis Controlled diabetes mellitus(Discharge Diagnosis) - 01/10/21 Morbid obesity with BMI of 60.0-69.9, adult(Discharge Diagnosis) - 01/10/21 Drug reaction(Discharge Diagnosis) - 01/10/21 Attending Physician: Emma Ramirez NP Allergies, Adverse [...] Given 1Result Comment: Covid 19 mRNA lot [id number] exp 05-01-2021 [facility] 2Result Comment: covid-19 mRNa lot [id number] exp 03-31-2021 [facility] 3Result Comment: Covid-19 mRNA lot [id number] exp 03-31-2021 [facility] 4Result Comment: [02/21/2018] [facility] [id number] 842 01 Medications aspirin 81 mg oral tablet 1 tablet = 81 mg, By Mouth, Daily, # 90 tablet, 0 Refills, Maintenance, 02/13/19 11:23:57 EDT, Tablet Start Date: 02/13/19 Status: Ordered bismuth subsalicylate 262 mg oral tablet 2 tablet = 524 mg, Chew, 4 times a day, for 14 days, # 112 tablet, 0 Refills, Acute 01/25/21 9:46:00 EST, 01/11/21 9:46:00 EST, Tablet, [facility]/pharmacy #2339, Partial fill upon patient request if the prescription is for a schedule II opioid drug., 161.1,... Start Date: 01/11/21 Stop Date: 01/25/21 Status: Ordered Bydureon BCise 2 mg/0.85 mL subcutaneous suspension, extended release = 2 mg, Subcutaneous Infusion, Every 7 days, Take 2mg once weekly on the same day. E11.65, # 3.4 mL, 5 Refills, Maintenance, 06/14/20 9:36:00 EDT, [facility]/pharmacy #2339, 161.1, cm, 05/30/20 8:03:00 EDT,Height, 149.3, kg, 04/27/20 2:13:00 EDT, Dry Weight Start Date: 06/14/20 Status: Ordered EPINEPHrine 0.3 mg injectable solution = 0.3 mg, Intramuscular, Once, PRN Anaphylactic Reaction, Use for anaphylactic reaction. may repeatif necessary, # 2 each, 0 Refills, Soft Stop, 01/10/21 12:01:00 EST, [facility]/pharmacy #2339, Partial fill upon patient request if the prescription is for... Start Date: 01/10/21 Status: Ordered ferrous sulfate 325 mg oral tablet See Instructions, 1 tablet By Mouth every other day, # 45 tablet, 3 Refills, Maintenance, 06/14/20 14:43:00 EDT, [facility]/pharmacy #2339, 161.1, cm, 05/30/20 8:03:00 EDT, Height, [...] mcg, By Mouth, Daily, # 30 tablet, 2 Refills, Maintenance, 12/07/20 9:42:00 EST, Tablet, [facility]/pharmacy #2339, Partial fill upon patient request if the prescription is for a schedule II opioid drug., 161.1, cm, 10/06/20 10:55:00 EST, [place]... Start Date: 12/07/20 Status: Ordered metFORMIN 1000 mg oral tablet 1 tablet = 1,000 mg, By Mouth, 2 times a day, # 180 tablet, 3 Refills, Maintenance, 10/06/20 11:00:00 EST, [facility], 161.1, cm, 10/06/20 10:55:00 EST, Height, 149.3, kg, 04/27/20 2:13:00 EDT, Dry Weight Start Date: 10/06/20 Status: Ordered metroNIDAZOLE 250 mg oral tablet 1 tablet = 250 mg, By Mouth, 4 times a day, for 14 days, # 56 tablet, 0 Refills, Acute 01/25/21 9:46:00 EST, 01/11/21 9:46:00 EST, Tablet, [facility]/pharmacy #2339, Partial fill upon patient request if theprescription is for a schedule II opioid drug., 161... Start Date: 01/11/21 Stop Date: 01/25/21 Status: Ordered Penla Nail Lacquer 8% solution 1 application, Topically, Daily, for 48 week(s), apply to nail (top and underside), 1/4 inch of surrounding skin & nail bed, . Wipe with rubbing alcohol weekly., # 6.6 mL, 6 Refills, Acute 03/17/27 8:49:00 EDT, 10/07/20 8:49:00 EST, [facility], [facility] Start Date: 10/07/20 Stop Date: 03/17/27 Status: Ordered Protonix 20 mg oral delayed release tablet 1 tablet = 20 mg, By Mouth, 2 times a day, # 28 tablet, 0 Refills, Maintenance, 01/11/21 9:46:00 EST, CR Tablet, 161.1, cm, 01/10/21 12:08:00 EST, Height, 149.3, kg, 04/27/20 2:13:00 EDT, Dry Weight Start Date: 01/11/21 Stop Date: 01/25/21 Status: Ordered sertraline 50 mg oral tablet [...] Dry Weight Start Date: 04/18/20 Status: Ordered tetracycline 500 mg oral capsule 1 capsule = 500 mg, By Mouth, 4 times a day, for 14 days, # 56 capsule, 0 Refills, Acute 01/25/21 9:46:00 EST, 01/11/21 9:46:00 EST, Capsule, [facility], Partial fill upon patient request if the prescription is for a schedule II opioid drug.,... Start Date: 01/11/21 Stop Date: 01/25/21 Status: Ordered Trulicity Pen 1.5 mg/0.5 mL subcutaneous solution See Instructions, 0.5 ML SUBCUTANEOUS INJECTION EVERY WEEK,INSTR:ROTATE INJECTION SITES, # 2 Unknown, 6 Refills, Maintenance, [facility], 161.1, cm, 10/06/20 10:55:00 EST, Height, 149.3, kg, 04/27/20 2:13:00 EDT, Dry Weight Start Date: 11/21/20 Status: Ordered Problem List Condition Effective Dates Status Health Status Inform ant Morbid obesity with BMI of 6 0.0-69.9, adult(Confirmed) Active Chest pain(Confirmed) Active Depression(Confirmed) Active Controlled diabetes mellitus(Confirmed) Active Iron deficiency anemia(Confirmed) Active Diagnosis Diagnosis Type Effective Dates Health Status Clinical Service Informant Controlled diabetes mellitus Discharge Diagnosis 01/10/21 Morbid obesity with BMI of 60.0-69.9, adult Discharge Diagnosis 01/10/21 Drug reaction Discharge Diagnosis 01/10/21 Vital Signs Most recent to oldest [Reference Range]: 1 2 Height 161.1 cm (01/10/21 12:08 PM) 161.1 cm (01/10/21 9:44 AM) Weight 126 kg (01/10/21 12:08 PM) Body Mass Index [18.5-24.99] 48.55 *>HHI* (01/10/21 12:08 PM) Weight Obtained Via Patient/family state d (01/10/21 12:08 PM) Social History Social History Type Response Smoking Status Never smoker; Tobacc o user in household: No entered on: 02/21/18 Sex
--- OUTSIDE RECORDS SUMMARY | 2023-06-28 00:47 | XMS_ITS | Continuity of Care Document ---
Author Name Unknown Organization [facility] Address Unknown Care Team Providers Care Oracle Adf Developer Name Role Phone James FONG, Emma Oreilly Primary Care Physician [place] [facility] [place] Date(s): 07/14/21 - 07/21/21 [facility] Attending Physician: Knee RD, Lorrie Allergies, Adverse Reactions, Alerts Substance Reaction Severity Status amoxicillin throat closing Active clarithromycin throat closing Active Immunizations Given and Recorded Vaccine Date Status Refusal Reason SARS-CoV-2 (COVID-19) mRNA BNT-162b2 vac 1 01/01/21 Recorded SARS-CoV-2 (COVID-19) mRNA BNT-162b2 vac 2 12/11/20 Recorded SARS-CoV-2 (COVID-19) mRNA BNT-162b2 vac 3 12/11/20 Recorded tetanus/diphtheria/pertussis, acel(Tdap) 4 02/21/18 Given 1Result Comment: Covid 19 mRNA lot [id number] exp 05-01-2021 [facility] 2Result Comment: covid-19 mRNa lot [id number] exp 03-31-2021 [facility] 3Result Comment: Covid-19 mRNA lot [id number] exp 03-31-2021 [facility] 4Result Comment: [02/21/2018] [facility] [address] 842 01 Medications aspirin 81 mg oral tablet 1 tablet = 81 mg, By Mouth, Daily, # 90 tablet, 0 Refills, Maintenance, 02/13/19 11:23:57 EDT, Tablet Start Date: 02/13/19 Status: Ordered EPINEPHrine 0.3 mg injectable solution = 0.3 mg, Intramuscular, Once, PRN Anaphylactic Reaction, Use for anaphylactic reaction. may repeatif necessary, # 2 each, 0 Refills, Soft Stop, 01/10/21 12:01:00 EST, [facility]/pharmacy #2339, Partial fill upon patient request [...] 0 Refills, Maintenance, 03/21/21 13:09:00 EDT, Tablet, [facility]/pharmacy #2339, Partial fill upon patient request [...] tablet, 1 Refills, Maintenance, 07/02/20 9:23:00 EDT, [facility]/pharmacy #2339, 161.1, cm, 06/20/20 8:16:00 EDT, Height, 149.3, kg, 04/27/20 2:13:00 EDT, Dry Weight Start Date: 07/02/20 Status: Ordered Trulicity Pen 1.5 mg/0.5 mL subcutaneous solution See Instructions, 0.5 ML SUBCUTANEOUS INJECTION EVERY WEEK,INSTR:ROTATE INJECTION SITES, # 2 Unknown, 6 Refills, Maintenance, [facility]ORE [facility]4495, 161.1, cm, 10/06/20 10:55:00 EST, Height, 149.3, kg, 04/27/20 2:13:00 EDT, Dry Weight Start Date: 11/21/20 Status: Ordered Problem List Condition Effective Dates Status Health Status Inform ant Binge eating disorder, moder ate, in partial remission(Confirmed) Active Morbid obesity with BMI of 6 0.0-69.9, adult(Confirmed) Active Chest pain(Confirmed) Active Depression(Confirmed) Active Controlled diabetes mellitus(Confirmed) Active Iron deficiency anemia(Confirmed) Active Vital Signs Most recent to oldest [Reference Range]: 1 Height 161 cm (07/14/21 9:54 AM) Weight 140.9 kg (07/14/21 9:54 AM) Body Mass Index [18.5-24.99] 54.36 *>HHI* (07/14/21 9:54 AM) Social History Social History Type Response Smoking Status Never smoker; Tobacc o user in household: No entered on: 02/21/18 Sex
--- OUTSIDE RECORDS SUMMARY | 2023-06-28 00:47 | XMS_ITS | Continuity of Care Document ---
Author Name Unknown Organization [facility] Address [address] [place] [address] [address] [place] [address]- Care Team Providers Care Naval Special Warfare Medic Name Role Phone James FONG, Emma Oreilly Primary Care Physician [phone] Encounter [facility] Date(s): 12/30/20 - 01/29/21 [facility] [address] [place] [address]- Allergies, Adverse Reactions, Alerts Substance Reaction Severity [...] Given 1Result Comment: Covid 19 mRNA lot [id number] exp 05-01-2021 [facility] 2Result Comment: covid-19 mRNa lot [id number] exp 03-31-2021 [facility] 3Result Comment: Covid-19 mRNA lot [id number] exp 03-31-2021 [facility] 4Result Comment: [02/21/2018] [facility] [id number] 842 01 Medications aspirin 81 mg oral [...] mL, 5 Refills, Maintenance, 06/14/20 9:36:00 EDT, [facility]/pharmacy #2339, 161.1, cm, 05/30/20 8:03:00 EDT,Height, 149.3, kg, 04/27/20 2:13:00 EDT, Dry Weight Start Date: 06/14/20 Status: Ordered EPINEPHrine 0.3 mg injectable solution = 0.3 mg, Intramuscular, Once, PRN Anaphylactic Reaction, Use for anaphylactic reaction. may repeatif necessary, # 2 each, 0 Refills, Soft Stop, 01/10/21 12:01:00 EST, [facility]/pharmacy #2339, Partial fill upon patient request if the prescription is for... Start Date: 01/10/21 Status: Ordered ferrous sulfate 325 mg oral tablet See Instructions, 1 tablet By Mouth every other day, # 45 tablet, 3 Refills, Maintenance, 06/14/20 14:43:00 EDT, [facility]/pharmacy #2339, 161.1, cm, 05/30/20 8:03:00 EDT, [...] 2 Refills, Maintenance, 12/07/20 9:42:00 EST, Tablet, [facility]/pharmacy #2339, Partial fill upon patient request if the prescription is for a schedule II opioid drug., 161.1, cm, 10/06/20 10:55:00 EST, Heig... Start Date: 12/07/20 Status: Ordered metFORMIN 1000 mg oral tablet 1 tablet = 1,000 mg, By Mouth, 2 times a day, # 180 tablet, 3 Refills, Maintenance, 10/06/20 11:00:00 EST, [facility]/pharmacy #2339, 161.1, cm, 10/06/20 10:55:00 EST, Height, 149.3, kg, 04/27/20 2:13:00 EDT, Dry Weight Start Date: 10/06/20 Status: Ordered Penlac Nail Lacquer 8% solution 1 application, Topically, [...] tablet, 1 Refills, Maintenance, 07/02/20 9:23:00 EDT, [facility]/pharmacy #2339, 161.1, cm, 06/20/20 8:16:00 EDT, Height, 149.3, kg, 04/27/20 2:13:00 EDT, Dry Weight Start Date: 07/02/20 Status: Ordered terbinafine 1% topical cream 1 application, Topically, 2 times a day, # 15 Gm, 0 Refills, Maintenance, 04/18/20 15:15:00 EDT, Cream, [facility]/pharmacy #2339, 1 application Topically 2 times a day, 161.1, cm, 02/15/20 14:50:00 EDT, Height, 141, kg, 04/19/19 4:24:00 EDT, Dry Weight Start Date: 04/18/20 Status: Ordered Trulicity Pen 1.5 mg/0.5 mL subcutaneous solution See Instructions, 0.5 ML SUBCUTANEOUS INJECTION EVERY WEEK,INSTR:ROTATE INJECTION SITES, # 2 Unknown, 6 Refills, Maintenance, [facility], 161.1, cm, 10/06/20 10:55:00 EST, Height, 149.3, [...]
--- OUTSIDE RECORDS SUMMARY | 2023-06-28 00:47 | XMS_ITS | Continuity of Care Document ---
Author Name Unknown Organization [facility] ter Address [address] [place] [address]- Care Team Providers Care Tenter Feeder Name Role Phone James FONG, Emma Oreilly Primary Care Physician [phone] Encounter [place] Date(s): 07/18/20 - 08/17/[address] [address]- [facility] Attending Physician: Candy Jones Admitting Physician: Candy Jones Referring Physician: AdmtrCandy Allergies, Adverse Reactions, Alerts No Known Medication Allergies Immunizations Given and Recorded Vaccine Date Status Refusal Reason tetanus/diphtheria/pertussis, acel(Tdap) 1 02/21/18 Given 1Result Comment: [02/21/2018] [facility] [id number] 842 01 Medications aspirin 81 mg oral [...] 5 Refills, Maintenance, 06/14/20 9:36:00 EDT, [facility], 161.1, cm, 05/30/20 8:03:00 EDT,Height, 149.3, kg, 04/27/20 2:13:00 EDT, Dry Weight Start Date: 06/14/20 Status: Ordered cholecalciferol 50,000 intl units oral capsule 1 capsule = 50,000 International_Units, By Mouth, Every week, # 5 capsule, 0 Refills, Maintenance, 02/15/20 15:08:00 EDT, Capsule, [facility]/pharmacy #4471, 161.1, cm, 02/15/20 14:50:00 EDT, Height, 141, kg, 04/19/19 4:24:00 EDT, Dry Weight Start Date: 02/15/20 Status: Ordered ferrous sulfate 325 mg oral tablet See Instructions, 1 tablet By Mouth every other day, # 45 tablet, 3 Refills, Maintenance, 06/14/20 14:43:00 EDT, [facility]/pharmacy #2339, 161.1, cm, 05/30/20 8:03:00 EDT, Height, [...] tablet, 5 Refills, Maintenance, 05/06/20 10:27:00 EDT, [facility]/pharmacy #2339, 161.1, cm, 04/28/20 11:33:00 EDT, Height, [...] 0 Refills, Maintenance, 08/07/20 10:46:00 EDT, Solution, [facility]/pharmacy #2339, 161.1, cm, 07/21/20 10:06:00 EDT... Start [...]
--- OUTSIDE RECORDS SUMMARY | 2023-06-28 00:48 | XMS_ITS | Continuity of Care Document ---
Author Name Unknown Organization [facility] Hussein lt Address [address] [place] [address]- Care Team Providers Care Customer Marketing Manager Name Role Phone James FONG, Emma Oreilly Primary Care Physician [phone] Encounter [facility] [place] Date(s): 07/07/21 - 07/14/21 [facility] [address] [place] [address]- Attending Physician: Not on Staff, Attending MD Allergies, Adverse Reactions, Alerts Substance Reaction [...] Given 1Result Comment: Covid 19 mRNA lot [id number] exp 05-01-2021 [facility] 2Result Comment: covid-19 mRNa lot [id number] exp 03-31-2021 [facility] 3Result Comment: Covid-19 mRNA lot [id number] exp 03-31-2021 [facility] 4Result Comment: [02/21/2018] [facility] [address] 842 01 Medications aspirin 81 mg oral [...] mL, 5 Refills, Maintenance, 06/14/20 9:36:00 EDT, [facility]/pharmacy #2339, 161.1, cm, 05/30/20 8:03:00 EDT,Height, 149.3, kg, 04/27/20 2:13:00 EDT, Dry Weight Start Date: 06/14/20 Status: Ordered EPINEPHrine 0.3 mg injectable solution = 0.3 mg, Intramuscular, Once, PRN Anaphylactic Reaction, Use for anaphylactic reaction. may repeatif necessary, # 2 each, 0 Refills, Soft Stop, 01/10/21 12:01:00 EST, [facility]/pharmacy #2339, Partial fill upon patient request if [...] 0 Refills, Maintenance, 03/21/21 13:09:00 EDT, Tablet, [facility]/pharmacy #2339, Partial fill upon patient request if the prescription is for a schedule II opioid drug., 161.1, cm, ... Start Date: 03/21/21 Status: Ordered metFORMIN 1000 mg oral tablet 1 tablet = 1,000 mg, By Mouth, 2 times a day, # 180 tablet, 3 Refills, Maintenance, 10/06/20 11:00:00 EST, [facility]/pharmacy #2339, 161.1, cm, 10/06/20 10:55:00 EST, Height, [...] 2 Unknown, 6 Refills, Maintenance, [facility], 161.1, cm, 10/06/20 10:55:00 EST, Height, 149.3, [...] Most recent to oldest [Reference Range]: 1 Weight 143.9 kg (07/07/21 8:24 AM) Pulse Rate [55-90 bpm] 90 bpm (07/07/21 8:24 AM) Blood Pressure [90-138/55-84 mm Hg] 112/ 68mm Hg (07/07/21 8:24 AM) Temperature [96.8-100.4 DegF] 97 DegF (07/07/21 8:24 AM) Temperature Route Oral (07/07/21 8:24 AM) Social History Social History Type Response Smoking Status Never smoker; Tobacc o user in household: No entered on: 02/21/18 Sex
--- OUTSIDE RECORDS SUMMARY | 2023-06-28 00:48 | XMS_ITS | Continuity of Care Document ---
Author Name Unknown Organization [facility] Hussein lt Address [address] [place] [address]- Care Team Providers Care Habitat Conservation Planner Name Role Phone James FONG, Emma Oreilly Primary Care Physician [phone] [place] [facility] [place] 08/14/21 - 08/21/21 [facility] [address] [place] [address]- Encounter Diagnosis Abdominal pain(Discharge Diagnosis) - 08/14/21 Iron deficiency anemia(Discharge Diagnosis) - 08/14/21 History of Helicobacter pylori infection(Discharge Diagnosis) - 08/14/21 Morbid obesity with BMI of 60.0-69.9, adult(Discharge Diagnosis) - 08/14/21 Controlled diabetes mellitus(Discharge Diagnosis) - 08/14/21 Attending Physician: Emma Ramirez NP Referring Physician: [...] Given 1Result Comment: Covid 19 mRNA lot [id number] exp 05-01-2021 [facility] 2Result Comment: covid-19 mRNa lot [id number] exp 03-31-2021 [facility] 3Result Comment: Covid-19 mRNA lot [id number] exp 03-31-2021 [facility] 4Result Comment: [02/21/2018] [facility] [address] 842 01 Medications acetaminophen 325 mg oral [...] 11:27:00 EDT, Route to Pharmacy Electronically, [facility], Partial fill upon patient request if the prescr... Start Date: 08/09/21 Status: Ordered EPINEPHrine 0.3 mg injectable solution = 0.3 mg, Intramuscular, Once, PRN Anaphylactic Reaction, Use for anaphylactic reaction. may repeatif necessary, # 2 each, 0 Refills, Soft Stop, 01/10/21 12:01:00 EST, [facility]/pharmacy #1700, Partial fill upon patient request if the [...] Mouth, Daily, # 30 tablet, 5 Refills, [facility]ORE 67411, 160.02, cm, 08/09/21 4:06:00 EDT, Height, 137.4, [...] Maintenance, 08/09/21 11:28:00 EDT, EC Capsule, [facility], Partial fill upon patient request if the prescription is for a schedule II opioid drug., 160.02, cm, ... Start Date: 08/09/21 Status: Ordered Trulicity Pen 1.5 mg/0.5 mL subcutaneous solution See Instructions, 0.5 ML SUBCUTANEOUS INJECTION EVERY WEEK,INSTR:ROTATE INJECTION SITES, # 2 Unknown, 6 Refills, 07/29/21 14:27:00 EDT, [facility]/pharmacy #8584, 165, cm, 07/27/21 12:33:00 EDT, Height, 140.9, kg, 07/21/21 17:38:00 EDT, Dry Weight Start Date: 07/29/21 Status: Ordered Problem List Condition Effective Dates Status Health Status Inform ant Binge eating disorder, moder ate, in partial remission(Confirmed) Active Morbid obesity with BMI of 6 0.0-69.9, adult(Confirmed) Active Depression(Confirmed) Active Controlled diabetes mellitus(Confirmed) Active History of Helicobacter pylo ri infection(Confirmed) Active Iron deficiency anemia(Confirmed) Active Diagnosis Diagnosis Type Effective Dates Health Status Clinical Service Informant Controlled diabetes mellitus Discharge Diagnosis 08/14/21 Morbid obesity with BMI of 60.0-69.9, adult Discharge Diagnosis 08/14/21 History of Helicobacter pylori infection Discharge Diagnosis 08/14/21 Iron deficiency anemia Discharge Diagnosis 08/14/21 Abdominal pain Discharge Diagnosis 08/14/21 Vital Signs Most recent to oldest [Reference Range]: 1 Height 160.02 cm (08/14/21 10:51 AM) Weight 132.9 kg (08/14/21 10:51 AM) Oxygen Saturation [94-100 %] 99 % (08/14/21 10:51 AM) Pulse Rate [55-90 bpm] 84 bpm (08/14/21 10:51 AM) Body Mass Index [18.5-24.99] 51.9 *>HHI* (08/14/21 10:51 AM) Blood Pressure [90-138/55-84 mm Hg] 114/ 62mm Hg (08/14/21 10:51 AM) Respiratory Rate [16-30 br/min] 18 br/mi n (08/14/21 10:51 AM) Temperature [96.8-100.4 DegF] 98.0 DegF (08/14/21 10:51 AM) Mode of Delivery (Oxygen) Room air (08/14/21 10:51 AM) Blood pressure sites Arm, right (08/14/21 10:51 AM) Temperature Route Oral (08/14/21 10:51 AM) Weight Obtained Via Standing scale (08/14/21 10:51 AM) Social History Social History Type Response Smoking Status Never smoker; Tobacc o user in household: No entered on: 02/21/18 Sex
--- OUTSIDE RECORDS SUMMARY | 2023-06-28 00:48 | XMS_ITS | Continuity of Care Document ---
Author Name Unknown Organization [facility] Address [address] [place] [address]- Care Team Providers Care Sweater Designer Name Role Phone James FONG, Emma Oreilly Primary Care Physician [place] [facility] [place]s): 09/01/20 - 10/01/20 [facility] [address] [place] [address]- [facility] Allergies, Adverse Reactions, Alerts No Known Medication Allergies Immunizations Given and Recorded Vaccine Date Status Refusal Reason tetanus/diphtheria/pertussis, acel(Tdap) 1 02/21/18 Given 1Result Comment: [02/21/2018] [facility] [address] 842 01 Medications aspirin 81 mg oral [...] tablet, 3 Refills, Maintenance, 06/14/20 14:43:00 EDT, [facility]/pharmacy #2339, 161.1, cm, 05/30/20 8:03:00 EDT, [...] 0 Refills, Maintenance, 04/18/20 15:15:00 EDT, Cream, [facility]/pharmacy #2339, 1 application Topically 2 times a day, 161.1, cm, 02/15/20 14:50:00 EDT, Height, 141, kg, 04/19/19 4:24:00 EDT, Dry Weight Start Date: 04/18/20 Status: Ordered Trulicity Pen 0.75 mg/0.5 mL subcutaneous solution = 0.75 mg, Subcutaneous Injection, Every 7 days, labs needed, # 4 each, 1 Refills, Maintenance, 08/31/20 9:35:00 EDT, [facility]/pharmacy #2339, 161.1, cm, 07/21/20 10:06:00 EDT, [...]
--- OUTSIDE RECORDS SUMMARY | 2023-06-28 00:48 | XMS_ITS | Continuity of Care Document ---
Author Name Unknown Organization [facility] Hussein lt Address [address] [place] [address]- Care Team Providers Care Book Editor Name Role Phone Casa FONG, Kay Villela Primary Care Physician [phone] [place] [facility] [place]s): 05/04/22 - 06/03/22 [facility] [address] [place] [address]- Attending Physician: Admtr, Ar8 Admitting Physician: Admtr, Ar8 Referring Physician: Admtr, Ar8 Allergies, Adverse Reactions, Alerts Substance Reaction Severity [...] Given 1Result Comment: Covid 19 mRNA lot [id number] exp 05-01-2021 [facility] 2Result Comment: covid-19 mRNa lot [id number] exp 03-31-2021 [facility] 3Result Comment: Covid-19 mRNA lot [id number] exp 03-31-2021 [facility] 4Result Comment: [02/21/2018] [facility] [address] 842 01 Medications acetaminophen 325 mg oral [...] 08/09/21 11:27:00 EDT, Route to Pharmacy Electronically, [facility], Partial fill upon patient request if the prescr... Start Date: 08/09/21 Status: Ordered EPINEPHrine 0.3 mg injectable solution = 0.3 mg, Intramuscular, Once, PRN Anaphylactic Reaction, Use for anaphylactic reaction. may repeatif necessary, # 2 each, 0 Refills, Soft Stop, 01/10/21 12:01:00 EST, [facility]/pharmacy #3321, Partial fill upon patient request if the [...] Mouth, Daily, # 90 tablet, 1 Refills, [facility] 42830, 160.02, cm, 10/02/21 10:20:00 EDT, Height, 137.4, [...] Refills, Maintenance, 08/09/21 11:28:00 EDT, EC Capsule, [facility], Partial fill upon patient request if the prescription is for a schedule II opioid drug., 160.02, cm, ... Start Date: 08/09/21 Status: Ordered Trulicity Pen 1.5 mg/0.5 mL subcutaneous solution See Instructions, 0.5 ML SUBCUTANEOUS INJECTION EVERY WEEK,INSTR:ROTATE INJECTION SITES, # 2 Unknown, 6 Refills, 07/29/21 14:27:00 EDT, [facility]/pharmacy #2339, 165, cm, 07/27/21 12:33:00 EDT, Height, [...]
--- OUTSIDE RECORDS SUMMARY | 2023-06-28 00:48 | XMS_ITS | Continuity of Care Document ---
Author Name Unknown Organization [facility] lt Address [address] [place] [address]- Care Team Providers Care Performance Tester Name Role Phone Casa FONG, Kay Villela Primary Care Physician [place] [facility] [place] 11[place]25/22 [facility] [address] [place] [address]- Attending Physician: Admtr, Ar8 Admitting Physician: Admtr, [...] Given 1Result Comment: Covid 19 mRNA lot [id number] exp 05-01-2021 [facility] 2Result Comment: covid-19 mRNa lot [id number] exp 03-31-2021 [facility] 3Result Comment: Covid-19 mRNA lot [id number] exp 03-31-2021 [facility] 4Result Comment: [02/21/2018] [facility] [address] 842 01 Medications acetaminophen 325 mg oral [...] 08/09/21 11:27:00 EDT, Route to Pharmacy Electronically, [facility], Partial fill upon patient request if the prescr... Start Date: 08/09/21 Status: Ordered EPINEPHrine 0.3 mg injectable solution = 0.3 mg, Intramuscular, Once, PRN Anaphylactic Reaction, Use for anaphylactic reaction. may repeatif necessary, # 2 each, 0 Refills, Soft Stop, 01/10/21 12:01:00 EST, [facility]/pharmacy #2339, Partial fill upon patient request if [...] Mouth, Daily, # 90 tablet, 1 Refills, [facility], 160.02, cm, 10/02/21 10:20:00 EDT, Height, 137.4, [...] Refills, Maintenance, 08/09/21 11:28:00 EDT, EC Capsule, [facility], Partial fill upon patient request if the prescription is for a schedule II opioid drug., 160.02, cm, ... Start Date: 08/09/21 Status: Ordered Trulicity Pen 1.5 mg/0.5 mL subcutaneous solution See Instructions, INJECT 0.5ML SUBCUTANEOUSLY EVERY WEEK. ROTATE INFECTION SITES., # 2 Unknown, 6 Refills, Maintenance, 08/17/22 13:33:00 EDT, [facility], 160.02, cm, 10/02/21 10:20:00 EDT, Height, 137.4, [...] in household: No entered on: 02/21/18 Sex EKG study * Event Display: EKG Authored Date: Note * Event Display: Non BH Cardiovascular Results Authored Date: * Event Display: Non BH Lab Results Authored Date: Patient Care team information Care Team Personnel Name: Ivy Pardo RN Position: S RN Member Role: Primary Care Nurse Name: Kay Cormier NP Position: [facility] PCO Associate Professional Member Role: PCP Address: Address: [address] [place] [id number] Name: Marilyn Razo RN Position: S RN Member Role: Primary Care Nurse Name: Shazia Hughes RN Position: S RN Member Role: Primary Care Nurse Care Team Related Persons Name: FINA SALMERON Address: home [address] [place] [address] Name: JAMA MALONE Address: home [address] [place] [address] Name: KEYON WHITE
--- OUTSIDE RECORDS SUMMARY | 2023-06-28 00:48 | XMS_ITS | Continuity of Care Document ---
Author Name Unknown Organization [facility] Hussein Address [address] [place] [address]- Care Team Providers Care Clean Room Assembler Name Role Phone James FONG, Emma Oreilly Primary Care Physician [phone] Encounter [facility] Date(s): 02/15/20 - 02/22/20 [facility] Adult [address] [place] [address]- [facility] Attending Physician: Roxann CONTEH, Marcial Fair Allergies, Adverse Reactions, Alerts No Known Medication Allergies Immunizations Given and Recorded Vaccine Date Status Refusal Reason tetanus/diphtheria/pertussis, acel(Tdap) 1 02/21/18 Given 1Result Comment: [02/21/2018] [facility] [address] 842 01 Medications aspirin 81 mg oral tablet 1 tablet = 81 mg, By Mouth, Daily, # 90 tablet, 0 Refills, Maintenance, 02/13/19 11:23:57 EDT, Tablet Start Date: 02/13/19 Status: Ordered cholecalciferol 50,000 intl units oral [...] QOD, # 30 tablet, 0 Refills, Maintenance, 02/15/20 15:07:00 EDT, Tablet, [facility], 161.1, cm, 02/15/20 14:50:00 EDT, Height, 141, kg, 04/19/19 4:24:00 EDT, Dry Weight Start Date: 02/15/20 Status: Ordered metFORMIN 1000 mg oral tablet 1 tablet = 1,000 mg, By Mouth, 2 times a day, This is correct dose. 2000mg total daily dose., # 60 tablet, 0 Refills, Maintenance, 02/15/20 16:07:00 EDT, [facility]/pharmacy #4471, 161.1, cm, 02/15/20 14:50:00 EDT, Height, 141, kg, 04/19/19 4:24:00 EDT, Dry... Start Date: 02/15/20 Status: Ordered Wellbutrin XL 150 mg/24 hours oral tablet, extended release 1 tablet = 150 mg, By Mouth, Every 24 hours, # 90 tablet, 3 Refills, Maintenance, 02/13/19 11:48:14EDT, ER Tablet Start Date: 02/13/19 Status: Ordered Problem List Condition Effective Dates Status Health Status Inform ant Chest pain(Confirmed) Active Depression(Confirmed) Active Iron deficiency anemia(Confirmed) Active Morbid obesity(Confirmed) Active Prediabetes(Confirmed) Active Vital Signs Most recent to oldest [Reference Range]: 1 Height 161.1 cm (02/15/20 2:50 PM) Weight 146.0 kg (02/15/20 2:50 PM) Pulse Rate [55-90 bpm] 82 bpm (02/15/20 2:50 PM) Body Mass Index [18.5-24.99] 56.26 *>HHI* (02/15/20 2:50 PM) Blood Pressure [90-138/55-84 mm Hg] 104/ 66mm Hg (02/15/20 2:50 PM) Respiratory Rate [16-30 br/min] 16 br/mi n (02/15/20 2:50 PM) Temperature [96.8-100.4 DegF] 98.1 DegF (02/15/20 2:50 PM) Blood pressure sites Arm, left (02/15/20 2:50 PM) Temperature Route Oral (02/15/20 2:50 PM) Weight Obtained Via Standing scale (02/15/20 2:50 PM) Social History Social History Type Response Smoking Status Never smoker; Tobacc o user in household: No entered on: 02/21/18 Sex
--- OUTSIDE RECORDS SUMMARY | 2023-06-28 00:48 | XMS_ITS | Continuity of Care Document ---
Author Name Unknown Organization [facility] Address [address] [place] [address]- Care Team Providers Care Catalogue Compiler Name Role Phone James FONG, Emma Oreilly Primary Care Physician [phone] Encounter [facility] [place] Date(s): 08/08/21 - 08/09/[address] [address]- Discharge Disposition: A-D/C Home Attending Physician: Aristides Oleary MD Admitting Physician: Aristides Oleary MD Referring Physician: Aristides Oleary MD Allergies, Adverse Reactions, Alerts Substance Reaction [...] Given 1Result Comment: Covid 19 mRNA lot [id number] exp 05-01-2021 [facility] 2Result Comment: covid-19 mRNa lot [id number] exp 03-31-2021 [facility] 3Result Comment: Covid-19 mRNA lot [id number] exp 03-31-2021 [facility] 4Result Comment: [02/21/2018] [facility] [address] 842 01 Medications acetaminophen 325 mg oral tablet 650 mg, Tablet, By Mouth, 08/09/21 7:00:00 EDT Start Date: 08/09/21 Stop Date: 08/09/21 Status: Completed acetaminophen 325 mg oral tablet 650 mg, [...] 08/09/21 11:27:00 EDT, Route to Pharmacy Electronically, [facility], Partial fill upon patient request if the prescr... Start Date: 08/09/21 Status: Ordered EPINEPHrine 0.3 mg injectable solution = 0.3 mg, Intramuscular, Once, PRN Anaphylactic Reaction, Use for anaphylactic reaction. may repeatif necessary, # 2 each, 0 Refills, Soft Stop, 01/10/21 12:01:00 EST, [facility]/pharmacy #0057, Partial fill upon patient request if the [...] opioid drug. Start Date: 07/27/21 Status: Ordered Multivitamin Tablet By Mouth, Daily, 0 Refills, Maintenance, 07/27/21 12:14:00 EDT, Partial fill upon patient request if the prescription is for a schedule II opioid drug. Start Date: 07/27/21 Status: Ordered omeprazole 20 mg oral enteric coated capsule 1 capsule = 20 mg, By Mouth, 2 times a day, # 120 capsule, 4 Refills, Maintenance, 08/09/21 11:28:00 EDT, EC Capsule, [facility], Partial fill upon patient request if the prescription is for a schedule II opioid drug., 160.02, cm, ... Start Date: 08/09/21 Status: Ordered oxyCODONE 5 mg oral tablet 5 mg, Tablet, By Mouth, Every 4 hours, PRN for Pain , Moderate, Routine, 08/09/21 6:50:00 EDT Start Date: 08/09/21 Stop Date: 08/16/21 Status: Ordered oxyCODONE 5 mg oral tablet 5 mg, 1, tablet, By Mouth, Every 4 hours, PRN, # 12 tablet, Refills 0, Tot. Refills 0, Maintenance,Pain , Moderate, 08/09/21 11:27:00 EDT, Route to Pharmacy Electronically, [facility],Partial fill upon patient request if the prescripti... Start Date: 08/09/21 Status: Ordered Trulicity Pen 1.5 mg/0.5 mL subcutaneous solution See Instructions, 0.5 ML SUBCUTANEOUS INJECTION EVERY WEEK,INSTR:ROTATE INJECTION SITES, # 2 Unknown, 6 Refills, 07/29/21 14:27:00 EDT, [facility], 165, cm, 07/27/21 12:33:00 EDT, Height, 140.9, kg, 07/21/21 17:38:00 EDT, Dry Weight Start Date: 07/29/21 Status: Ordered Problem List Condition Effective Dates Status Health Status Inform ant Binge eating disorder, moder ate, in partial remission(Confirmed) Active Morbid obesity with BMI of 6 0.0-69.9, adult(Confirmed) Active Depression(Confirmed) Active Controlled diabetes mellitus(Confirmed) Active History of Helicobacter pylo ri infection(Confirmed) Active Iron deficiency anemia(Confirmed) Active Procedures Procedure Date Related Diagnosis Body Site Status Laparoscopy, surgical, gastr ic restrictive procedure; longitudinal gastrectomy (ie, sleeve gastrectomy) Completed Vital Signs Most recent to oldest [Reference Range]: 1 2 3 Height 160.02 cm (08/09/21 4:06 AM) 160.02 cm (08/09/21 12:33 AM) 160.02 cm (08/08/21 8:20 PM) Oxygen Saturation [94-100 %] 98 % (08/09/21 11:00 AM) 98 % (08/09/21 8:00 AM) 97 % (08/09/21 4:06 AM) Pulse Rate [55-90 bpm] 58 bpm (08/09/21 11:00 AM) 64 bpm (08/09/21 8:00 AM) 70 bpm (08/09/21 4:06 AM) Blood Pressure [90-138/55-84 mm Hg] 134/63mm Hg (08/09/21 11:00 AM) 135/58mm Hg (08/09/21 8:00 AM) 114/51mm Hg (08/09/21 4:06 AM) Respiratory Rate [16-30 br/min] 18 br/min (08/09/21 2:58 PM) 18 br/min (08/09/21 11:00 AM) 16 br/min (08/09/21 9:02 AM) Temperature [96.8-100.4 DegF] 98.1 DegF (08/09/21 11:00 AM) 98.6 DegF (08/09/21 8:00 AM) 98.6 DegF (08/09/21 4:06 AM) Liters per Minute 6 L/min (08/08/21 1:30 PM) Mode of Delivery (Oxygen) Room air (08/09/21 11:00 AM) Room air (08/09/21 8:00 AM) Room air (08/09/21 4:06 AM) Blood pressure sites Arm, left (08/09/21 11:00 AM) Arm, left (08/09/21 8:00 AM) Arm, left (08/09/21 4:06 AM) Temperature Route Oral (08/09/21 11:00 AM) Oral (08/09/21 8:00 AM) Oral (08/09/21 4:06 AM) Dry Weight 137.4 kg (08/08/21 9:30 AM) 140.9 kg (07/21/21 5:38 PM) Dry Weight Obtained Via Standing scale (08/08/21 9:30 AM) Social History Social History Type Response Smoking Status Never smoker; Tobacc o user in household: No entered on: 02/21/18 Sex
--- OUTSIDE RECORDS SUMMARY | 2023-06-28 00:48 | XMS_ITS | Continuity of Care Document ---
Author Name Unknown Organization [address] [place] [address]- Care Team Providers Care Assistant Account Executive Name Role Phone James FONG, Emma Oreilly Primary Care Physician [place] [facility] [place] - 03/23/[address] [place] [address]- Attending Physician: Anirudh CONTEH, Aristides Referring Physician: Emma Ramirez NP Allergies, Adverse [...] Given 1Result Comment: Covid 19 mRNA lot [id number] exp 05-01-2021 [facility] 2Result Comment: covid-19 mRNa lot [id number] exp 03-31-2021 [facility] 3Result Comment: Covid-19 mRNA lot [id number] exp 03-31-2021 [facility] 4Result Comment: [02/21/2018] [facility] [address] 842 01 Medications aspirin 81 mg oral [...] mL, 5 Refills, Maintenance, 06/14/20 9:36:00 EDT, [facility]/pharmacy #2339, 161.1, cm, 05/30/20 8:03:00 EDT,Height, 149.3, kg, 04/27/20 2:13:00 EDT, Dry Weight Start Date: 06/14/20 Status: Ordered EPINEPHrine 0.3 mg injectable solution = 0.3 mg, Intramuscular, Once, PRN Anaphylactic Reaction, Use for anaphylactic reaction. may repeatif necessary, # 2 each, 0 Refills, Soft Stop, 01/10/21 12:01:00 EST, [facility]/pharmacy #2339, Partial fill upon patient request [...] Refills, Maintenance, 03/21/21 13:09:00 EDT, Tablet, [facility]/pharmacy #2339, Partial fill upon patient request if the prescription is for a schedule II opioid drug., 161.1, cm, ... Start Date: 03/21/21 Status: Ordered metFORMIN 1000 mg oral tablet 1 tablet = 1,000 mg, By Mouth, 2 times a day, # 180 tablet, 3 Refills, Maintenance, 10/06/20 11:00:00 EST, [facility]/pharmacy #2339, 161.1, cm, 10/06/20 10:55:00 EST, [...] 2 Unknown, 6 Refills, Maintenance, [facility], 161.1, cm, 10/06/20 10:55:00 EST, Height, 149.3, [...] oldest [Reference Range]: 1 Height 161.1 cm (03/16/21 2:34 PM) Weight 142.2 kg (03/16/21 2:34 PM) Pulse Rate [55-90 bpm] 72 bpm (03/16/21 2:34 PM) Body Mass Index [18.5-24.99] 54.79 *>HHI* (03/16/21 2:34 PM) Blood Pressure [90-138/55-84 mm Hg] 136/ 89mm Hg (03/16/21 2:34 PM) Respiratory Rate [16-30 br/min] 20 br/mi n (03/16/21 2:34 PM) Temperature [96.8-100.4 DegF] 97.8 DegF (03/16/21 2:34 PM) Blood pressure sites Arm, left (03/16/21 2:34 PM) Temperature Route Temporal (03/16/21 2:34 PM) Weight Obtained Via Standing scale (03/16/21 2:34 PM) Social History Social History Type Response Smoking Status Never smoker; Tobacc o user in household: No entered on: 02/21/18 Sex
--- OUTSIDE RECORDS SUMMARY | 2023-06-28 00:48 | XMS_ITS | Continuity of Care Document ---
Author Name Unknown Organization [facility] Address [address] [place] [address]- Care Team Providers Care Piano Regulator Name Role Phone James FONG, Emma Oreilly Primary Care Physician Encounter [facility] [place] Date(s): 08/30/20 - 09/29/20 [facility] [address] [place] [address]- [facility] Attending Physician: Candy Jones Admitting Physician: Candy Jones Referring Physician: AdmtrCandy Allergies, Adverse Reactions, Alerts No Known Medication Allergies Immunizations Given and Recorded Vaccine Date Status Refusal Reason tetanus/diphtheria/pertussis, acel(Tdap) 1 02/21/18 Given 1Result Comment: [02/21/2018] [facility] [address] 842 01 Medications aspirin 81 mg oral [...] 5 Refills, Maintenance, 06/14/20 9:36:00 EDT, [facility], 161.1, cm, 05/30/20 8:03:00 EDT,Height, 149.3, kg, 04/27/20 2:13:00 EDT, Dry Weight Start Date: 06/14/20 Status: Ordered cholecalciferol 50,000 intl units oral capsule 1 capsule = 50,000 International_Units, By Mouth, Every week, # 5 capsule, 0 Refills, Maintenance, 02/15/20 15:08:00 EDT, Capsule, [facility]/pharmacy #4471, 161.1, cm, 02/15/20 14:50:00 EDT, Height, 141, kg, 04/19/19 4:24:00 EDT, Dry Weight Start Date: 02/15/20 Status: Ordered ferrous sulfate 325 mg oral tablet See Instructions, 1 tablet By Mouth every other day, # 45 tablet, 3 Refills, Maintenance, 06/14/20 14:43:00 EDT, [facility]/pharmacy #2339, 161.1, cm, 05/30/20 8:03:00 EDT, Height, [...] tablet, 5 Refills, Maintenance, 05/06/20 10:27:00 EDT, [facility]/pharmacy #2339, 161.1, cm, 04/28/20 11:33:00 EDT, Height, [...]
--- OUTSIDE RECORDS SUMMARY | 2023-06-28 00:48 | XMS_ITS | Continuity of Care Document ---
Author Name Unknown Organization [facility] Address Unknown Care Team Providers Care Lithographic Proofer Name Role Phone Casa FONG, Kay Villela Primary Care Physician Encounter [facility] [place] Date(s): 10/02/21 - 01/10/22 [facility] Attending Physician: Eduardo Chang Referring Physician: Kay Cormier NP Allergies, Adverse [...] Given 1Result Comment: Covid 19 mRNA lot [id number] exp 05-01-2021 [facility] 2Result Comment: covid-19 mRNa lot [id number] exp 03-31-2021 [facility] 3Result Comment: Covid-19 mRNA lot [id number] exp 03-31-2021 [facility] 4Result Comment: [02/21/2018] [facility] [address] 842 01 Medications acetaminophen 325 mg oral [...] 08/09/21 11:27:00 EDT, Route to Pharmacy Electronically, [facility], Partial fill upon patient request if the prescr... Start Date: 08/09/21 Status: Ordered EPINEPHrine 0.3 mg injectable solution = 0.3 mg, Intramuscular, Once, PRN Anaphylactic Reaction, Use for anaphylactic reaction. may repeatif necessary, # 2 each, 0 Refills, Soft Stop, 01/10/21 12:01:00 EST, [facility]/pharmacy #2339, Partial fill upon [...] Mouth, Daily, # 30 tablet, 5 Refills, [facility] STORE 94642, 160.02, cm, 08/09/21 4:06:00 EDT, Height, 137.4, [...] Refills, Maintenance, 08/09/21 11:28:00 EDT, EC Capsule, [facility], Partial fill upon patient request if the prescription is for a schedule II opioid drug., 160.02, cm, ... Start Date: 08/09/21 Status: Ordered Trulicity Pen 1.5 mg/0.5 mL subcutaneous solution See Instructions, 0.5 ML SUBCUTANEOUS INJECTION EVERY WEEK,INSTR:ROTATE INJECTION SITES, # 2 Unknown, 6 Refills, 07/29/21 14:27:00 EDT, [facility]/pharmacy #2339, 165, cm, 07/27/21 [...]
--- OUTSIDE RECORDS SUMMARY | 2023-06-28 00:48 | XMS_ITS | Continuity of Care Document ---
Author Name Unknown Organization [facility] Address Unknown Care Team Providers Care Substation Engineer Name Role Phone James FONG, Emma Oreilly Primary Care Physician Encounter [facility] [place] Date(s): 08/11/21 - 09/10/21 [facility] Allergies, Adverse Reactions, Alerts Substance Reaction Severity [...] Given 1Result Comment: Covid 19 mRNA lot [id number] exp 05-01-2021 [facility] 2Result Comment: covid-19 mRNa lot [id number] exp 03-31-2021 [facility] 3Result Comment: Covid-19 mRNA lot [id number] exp 03-31-2021 [facility] 4Result Comment: [02/21/2018] [facility] [address] 842 01 Medications acetaminophen 325 mg oral [...] 08/09/21 11:27:00 EDT, Route to Pharmacy Electronically, [facility], Partial fill upon patient request if the prescr... Start Date: 08/09/21 Status: Ordered EPINEPHrine 0.3 mg injectable solution = 0.3 mg, Intramuscular, Once, PRN Anaphylactic Reaction, Use for anaphylactic reaction. may repeatif necessary, # 2 each, 0 Refills, Soft Stop, 01/10/21 12:01:00 EST, [facility]/pharmacy #2339, Partial fill upon patient request if [...] 30 tablet, 5 Refills, [facility] STORE 18356, 160.02, cm, 08/09/21 4:06:00 EDT, Height, 137.4, [...] Refills, Maintenance, 08/09/21 11:28:00 EDT, EC Capsule, [facility], Partial fill upon patient request if the prescription is for a schedule II opioid drug., 160.02, cm, ... Start Date: 08/09/21 Status: Ordered Trulicity Pen 1.5 mg/0.5 mL subcutaneous solution See Instructions, 0.5 ML SUBCUTANEOUS INJECTION EVERY WEEK,INSTR:ROTATE INJECTION SITES, # 2 Unknown, 6 Refills, 07/29/21 14:27:00 EDT, [facility]/pharmacy #2339, 165, cm, 07/27/21 12:33:00 EDT, Height, [...]
--- OUTSIDE RECORDS SUMMARY | 2023-06-28 00:48 | XMS_ITS | Continuity of Care Document ---
Author Name Unknown Organization [facility] Hussein lt Address [address] [place] [address]- Care Team Providers Care Wind Tunnel Mechanic Name Role Phone James FONG, Emma Oreilly Primary Care Physician Encounter [facility] [place] Date(s): 06/10/20 - 07/10/20 [facility] Adult [address] [place] [address]- [facility] Allergies, Adverse Reactions, Alerts No Known Medication Allergies Immunizations Given and Recorded Vaccine Date Status Refusal Reason tetanus/diphtheria/pertussis, acel(Tdap) 1 02/21/18 Given 1Result Comment: [02/21/2018] [facility] [address] 842 01 Medications aspirin 81 mg oral [...] Refills, Maintenance, 02/15/20 15:08:00 EDT, [facility], [facility], 161.1, cm, 02/15/20 14:50:00 EDT, Height, 141, kg, 04/19/19 4:24:00 EDT, Dry Weight Start Date: 02/15/20 Status: Ordered ferrous sulfate 325 mg oral tablet See Instructions, 1 tablet By Mouth every other day, # 45 tablet, 3 Refills, Maintenance, 06/14/20 14:43:00 EDT, [facility]/pharmacy #2339, 161.1, cm, 05/30/20 8:03:00 EDT, Height, [...] 0 Refills, Maintenance, 04/18/20 15:15:00 EDT, Cream, [facility]/pharmacy #2339, 1 application Topically 2 times a [...] 0 Refills, Maintenance, 06/20/20 10:50:00 EDT, Solution, [facility]/pharmacy #2339, 161.1, cm, 06/20/20 8:16:00 EDT,... Start [...]
--- OUTSIDE RECORDS SUMMARY | 2023-06-28 00:48 | XMS_ITS | Continuity of Care Document ---
Author Name Unknown Organization [facility] Address [address] [place] [address]- Care Team Providers Care Electric Bath Attendant Name Role Phone Kay Cormier NP Primary Care Physician [phone] [place] [facility] [place] Date(s): 08/16/22 - 09/15/22 [facility] Adult [address] [place] [address]- Allergies, Adverse Reactions, Alerts Substance Reaction Severity [...] Given 1Result Comment: Covid 19 mRNA lot [id number] exp 05-01-2021 [facility] 2Result Comment: covid-19 mRNa lot [id number] exp 03-31-2021 [facility] 3Result Comment: Covid-19 mRNA lot [id number] exp 03-31-2021 [facility] 4Result Comment: [02/21/2018] [facility] [address] 842 01 Medications acetaminophen 325 mg oral [...] 08/09/21 11:27:00 EDT, Route to Pharmacy Electronically, [facility], Partial fill upon patient request if the prescr... Start Date: 08/09/21 Status: Ordered EPINEPHrine 0.3 mg injectable solution = 0.3 mg, Intramuscular, Once, PRN Anaphylactic Reaction, Use for anaphylactic reaction. may repeatif necessary, # 2 each, 0 Refills, Soft Stop, 01/10/21 12:01:00 EST, [facility]/pharmacy #2871, Partial fill upon patient request if the [...] Mouth, Daily, # 90 tablet, 1 Refills, [facility] 69690, 160.02, cm, 10/02/21 10:20:00 EDT, Height, 137.4, [...] Refills, Maintenance, 08/09/21 11:28:00 EDT, EC Capsule, [facility], Partial fill upon patient request if the prescription is for a schedule II opioid drug., 160.02, cm, ... Start Date: 08/09/21 Status: Ordered Trulicity Pen 1.5 mg/0.5 mL subcutaneous solution See Instructions, INJECT 0.5ML SUBCUTANEOUSLY EVERY WEEK. ROTATE INFECTION SITES., # 2 Unknown, 6 Refills, Maintenance, 08/17/22 13:33:00 EDT, [facility] 12027, 160.02, cm, 10/02/21 10:20:00 EDT, Height, 137.4, [...] on: 02/21/18 Sex Patient Care team information Personnel Name: Kay Cormier NP Address: Address: [address] [place] [address] [place] [address]
--- OUTSIDE RECORDS SUMMARY | 2023-06-28 00:48 | XMS_ITS | Continuity of Care Document ---
Author Name Unknown Organization [facility] Address [address] [place] [address] [address] [place] [address]- Care Team Providers Care Sat Tutor Name Role Phone James FONG, Emma Oreilly Primary Care Physician Encounter [facility] Date(s): 06/12/21 - 07/12/[address] [place] [address]- Allergies, Adverse Reactions, Alerts Substance Reaction Severity [...] Given 1Result Comment: Covid 19 mRNA lot [id number] exp 05-01-2021 [facility] 2Result Comment: covid-19 mRNa lot [id number] exp 03-31-2021 [facility] 3Result Comment: Covid-19 mRNA lot [id number] exp 03-31-2021 [facility] 4Result Comment: [02/21/2018] [facility] [address] 842 01 Medications aspirin 81 mg oral [...] mL, 5 Refills, Maintenance, 06/14/20 9:36:00 EDT, [facility]/pharmacy #2339, 161.1, cm, 05/30/20 8:03:00 EDT,Height, 149.3, kg, 04/27/20 2:13:00 EDT, Dry Weight Start Date: 06/14/20 Status: Ordered EPINEPHrine 0.3 mg injectable solution = 0.3 mg, Intramuscular, Once, PRN Anaphylactic Reaction, Use for anaphylactic reaction. may repeatif necessary, # 2 each, 0 Refills, Soft Stop, 01/10/21 12:01:00 EST, [facility]/pharmacy #2339, Partial fill upon patient request [...] 0 Refills, Maintenance, 03/21/21 13:09:00 EDT, Tablet, [facility]/pharmacy #2339, Partial fill upon patient request if the prescription is for a schedule II opioid drug., 161.1, cm, ... Start Date: 03/21/21 Status: Ordered metFORMIN 1000 mg oral tablet 1 tablet = 1,000 mg, By Mouth, 2 times a day, # 180 tablet, 3 Refills, Maintenance, 10/06/20 11:00:00 EST, [facility]/pharmacy #2339, 161.1, cm, 10/06/20 10:55:00 EST, [...] tablet, 1 Refills, Maintenance, 07/02/20 9:23:00 EDT, [facility]/pharmacy #2339, 161.1, cm, 06/20/20 8:16:00 EDT, Height, 149.3, kg, 04/27/20 2:13:00 EDT, Dry Weight Start Date: 07/02/20 Status: Ordered Trulicity Pen 1.5 mg/0.5 mL subcutaneous solution See Instructions, 0.5 ML SUBCUTANEOUS INJECTION EVERY WEEK,INSTR:ROTATE INJECTION SITES, # 2 Unknown, 6 Refills, Maintenance, [facility] ST[facility] 25333, 161.1, cm, 10/06/20 10:55:00 EST, Height, 149.3, [...]
--- OUTSIDE RECORDS SUMMARY | 2023-06-28 00:48 | XMS_ITS | Continuity of Care Document ---
Author Name Unknown Organization [facility] Address [address] [place] [address] [address] [place] [address]- Care Team Providers Care Luster Repairer Name Role Phone James FONG, Emma Oreilly Primary Care Physician Encounter [facility] [place] Date(s): 06/06/21 - 06/13/[address] [place] [address]- Attending Physician: Lorrie Mcgowan RD Allergies, Adverse Reactions, Alerts Substance Reaction Severity [...] Given 1Result Comment: Covid 19 mRNA lot [id number] exp 05-01-2021 [facility] 2Result Comment: covid-19 mRNa lot [id number] exp 03-31-2021 [facility] 3Result Comment: Covid-19 mRNA lot [id number] exp 03-31-2021 [facility] 4Result Comment: [02/21/2018] [facility] [place] [id number] 842 01 Medications aspirin 81 mg oral [...] 5 Refills, Maintenance, 06/14/20 9:36:00 EDT, [facility]/pharmacy #2339, 161.1, cm, 05/30/20 8:03:00 EDT,Height, 149.3, kg, 04/27/20 2:13:00 EDT, Dry Weight Start Date: 06/14/20 Status: Ordered EPINEPHrine 0.3 mg injectable solution = 0.3 mg, Intramuscular, Once, PRN Anaphylactic Reaction, Use for anaphylactic reaction. may repeatif necessary, # 2 each, 0 Refills, Soft Stop, 01/10/21 12:01:00 EST, [facility]/pharmacy #2339, Partial fill upon patient request [...] Refills, Maintenance, 03/21/21 13:09:00 EDT, Tablet, [facility]/pharmacy #2339, Partial fill upon patient request if the prescription is for a schedule II opioid drug., 161.1, cm, ... Start Date: 03/21/21 Status: Ordered metFORMIN 1000 mg oral tablet 1 tablet = 1,000 mg, By Mouth, 2 times a day, # 180 tablet, 3 Refills, Maintenance, 10/06/20 11:00:00 EST, [facility]/pharmacy #2339, 161.1, cm, 10/06/20 10:55:00 EST, [...] 2 Unknown, 6 Refills, Maintenance, [facility], 161.1, cm, 10/06/20 10:55:00 EST, Height, 149.3, [...]
--- OUTSIDE RECORDS SUMMARY | 2023-06-28 00:48 | XMS_ITS | Continuity of Care Document ---
Author Name Unknown Organization [facility] Address [address] [place] [address]- Care Team Providers Care City Letter Carrier Name Role Phone James FONG, Emma Oreilly Primary Care Physician [place] [facility] [place] 01/10/21 - 02/09/21 [facility] Adult [address] [place] [address]- Attending Physician: Admtr, Candy Admitting Physician: Admtr, Candy Referring Physician: Admtr, Ar8 Allergies, Adverse Reactions, [...] Given 1Result Comment: Covid 19 mRNA lot [id number] exp 05-01-2021 [facility] 2Result Comment: covid-19 mRNa lot [id number] exp 03-31-2021 [facility] 3Result Comment: Covid-19 mRNA lot [id number] exp 03-31-2021 [facility] 4Result Comment: [02/21/2018] [facility] [address] 842 01 Medications aspirin 81 mg oral [...] mL, 5 Refills, Maintenance, 06/14/20 9:36:00 EDT, [facility]/pharmacy #2339, 161.1, cm, 05/30/20 8:03:00 EDT,Height, 149.3, kg, 04/27/20 2:13:00 EDT, Dry Weight Start Date: 06/14/20 Status: Ordered EPINEPHrine 0.3 mg injectable solution = 0.3 mg, Intramuscular, Once, PRN Anaphylactic Reaction, Use for anaphylactic reaction. may repeatif necessary, # 2 each, 0 Refills, Soft Stop, 01/10/21 12:01:00 EST, [facility]/pharmacy #2339, Partial fill upon patient request if the prescription is for... Start Date: 01/10/21 Status: Ordered ferrous sulfate 325 mg oral tablet See Instructions, 1 tablet By Mouth every other day, # 45 tablet, 3 Refills, Maintenance, 06/14/20 14:43:00 EDT, [facility]/pharmacy #2339, 161.1, cm, 05/30/20 8:03:00 [...] 2 Refills, Maintenance, 12/07/20 9:42:00 EST, Tablet, [facility]/pharmacy #2339, Partial fill upon patient request [...] tablet, 1 Refills, Maintenance, 07/02/20 9:23:00 EDT, [facility]/pharmacy #2339, 161.1, cm, 06/20/20 8:16:00 EDT, Height, 149.3, kg, 04/27/20 2:13:00 EDT, Dry Weight Start Date: 07/02/20 Status: Ordered terbinafine 1% topical cream 1 application, Topically, 2 times a day, # 15 Gm, 0 Refills, Maintenance, 04/18/20 15:15:00 EDT, Cream, [facility]/pharmacy #2339, 1 application Topically 2 times a day, 161.1, cm, 02/15/20 14:50:00 EDT, Height, 141, kg, 04/19/19 4:24:00 EDT, Dry Weight Start Date: 04/18/20 Status: Ordered Trulicity Pen 1.5 mg/0.5 mL subcutaneous solution See Instructions, 0.5 ML SUBCUTANEOUS INJECTION EVERY WEEK,INSTR:ROTATE INJECTION SITES, # 2 Unknown, 6 Refills, Maintenance, [facility] 68408, 161.1, cm, 10/06/20 10:55:00 EST, Height, 149.3, [...]
--- OUTSIDE RECORDS SUMMARY | 2023-06-28 00:48 | XMS_ITS | Continuity of Care Document ---
Author Name Unknown Organization [facility] Address [address] [place] [address]- Care Team Providers Care President College Or University Name Role Phone Casa FONG, Kay Villela Primary Care Physician [place] [facility] [place] 11[place]09[place]21 [facility] Adult [address] [place] [address]- Allergies, Adverse Reactions, Alerts Substance Reaction Severity [...] Given 1Result Comment: Covid 19 mRNA lot [id number] exp 05-01-2021 [facility] 2Result Comment: covid-19 mRNa lot [id number] exp 03-31-2021 [facility] 3Result Comment: Covid-19 mRNA lot [id number] exp 03-31-2021 [facility] 4Result Comment: [02/21/2018[facility] [id number] 842 01 Medications acetaminophen 325 mg oral [...] 08/09/21 11:27:00 EDT, Route to Pharmacy Electronically, [facility], Partial fill upon patient request if the prescr... Start Date: 08/09/21 Status: Ordered EPINEPHrine 0.3 mg injectable solution = 0.3 mg, Intramuscular, Once, PRN Anaphylactic Reaction, Use for anaphylactic reaction. may repeatif necessary, # 2 each, 0 Refills, Soft Stop, 01/10/21 12:01:00 EST, [facility]/pharmacy #2339, Partial fill upon [...] Mouth, Daily, # 30 tablet, 5 Refills, [facility] 26168, 160.02, cm, 08/09/21 4:06:00 EDT, Height, 137.4, [...] Refills, Maintenance, 08/09/21 11:28:00 EDT, EC Capsule, [facility], Partial fill upon patient request if the prescription is for a schedule II opioid drug., 160.02, cm, ... Start Date: 08/09/21 Status: Ordered Trulicity Pen 1.5 mg/0.5 mL subcutaneous solution See Instructions, 0.5 ML SUBCUTANEOUS INJECTION EVERY WEEK,INSTR:ROTATE INJECTION SITES, # 2 Unknown, 6 Refills, 07/29/21 14:27:00 EDT, [facility]/pharmacy #2339, 165, cm, 07/27/21 12:33:00 [...]
--- OUTSIDE RECORDS SUMMARY | 2023-06-28 00:48 | XMS_ITS | Continuity of Care Document ---
Author Name Unknown Organization [facility] Hussein Address [address] [place] [address]- Care Team Providers Care Electrician Powerhouse Name Role Phone James FONG, Emma Oreilly Primary Care Physician [phone] Encounter [facility] [place] Date(s): 03/17/20 - 03/24/20 [facility] Adult [address] [place] [address]- [facility] Encounter Diagnosis Chest pain(Discharge Diagnosis) - 03/24/20 Headache(Discharge Diagnosis) - 03/24/20 Attending Physician: Jose A CONTEH, Dajuan Ramos Allergies, Adverse Reactions, Alerts No Known Medication Allergies Immunizations Given and Recorded Vaccine Date Status Refusal Reason tetanus/diphtheria/pertussis, acel(Tdap) 1 02/21/18 Given 1Result Comment: [02/21/2018] [facility] [address] 842 01 Medications aspirin 81 mg oral [...] 0 Refills, Maintenance, 02/15/20 15:07:00 EDT, Tablet, [facility]/pharmacy #4471, 161.1, cm, 02/15/20 14:50:00 EDT, Height, 141, kg, 04/19/19 4:24:00 EDT, Dry Weight Start Date: 02/15/20 Status: Ordered metFORMIN 1000 mg oral tablet 1 tablet = 1,000 mg, By Mouth, 2 times a day, This is correct dose. 2000mg total daily dose., # 60 tablet, 0 Refills, Maintenance, 02/15/20 16:07:00 EDT, [facility], 161.1, cm, 02/15/20 14:50:00 EDT, [...] Diagnosis Diagnosis Type Effective Dates Health Status Clini maryam Service Informant Chest pain Discharge Diagnosis 03/24/20 Headache Discharge Diagnosis 03/24/20 Social History Social History Type Response Smoking Status Never smoker; Tobacc o user in household: No entered on: 02/21/18 Sex
--- OUTSIDE RECORDS SUMMARY | 2023-06-28 00:48 | XMS_ITS | Continuity of Care Document ---
Author Name Unknown Organization [facility] Hussein lt Address [address] [place] [address]- Care Team Providers Care Stitchdown Toe Former Name Role Phone Kay Cormier NP Primary Care Physician Encounter [facility] Date(s): 05/02/23 - 05/09/23 [facility] Adult [address] [place] [address]- Encounter Diagnosis Annual physical exam(Discharge Diagnosis) - 05/02/23 Controlled diabetes mellitus(Discharge Diagnosis) - 05/02/23 Severe obesity(Discharge Diagnosis) - 05/02/23 Tinea corporis(Discharge Diagnosis) - 05/02/23 Attending Physician: Not on Staff, Attending MD Allergies, Adverse Reactions, Alerts Substance Reaction Severity Status amoxicillin throat closing Active clarithromycin throat closing Active vancomycin rash , itchy Persistent Moderate Active Immunizations Given and Recorded Vaccine Date Status Refusal Reason hepatitis B adult vaccine 03/20/22 Recorded influenza virus vaccine, inactivated 01/29/21 Gutierrez rded SARS-CoV-2 (COVID-19) mRNA BNT-162b2 vac 1 01/01/21 Recorded SARS-CoV-2 (COVID-19) mRNA BNT-162b2 vac 2 12/11/20 Recorded SARS-CoV-2 (COVID-19) mRNA BNT-162b2 vac 3 12/11/20 Recorded Measles/Mumps/Rubella Virus Vaccine 03/26/18 Recor ded tetanus/diphtheria/pertussis, acel(Tdap) 4 02/21/18 Given 1Result Comment: Covid 19 mRNA lot [id number] exp 05-01-2021 [facility] 2Result Comment: covid-19 mRNa lot [id number] exp 03-31-2021 [facility] 3Result Comment: Covid-19 mRNA lot [id number] exp 03-31-2021 [facility] 4Result Comment: [02/21/2018] [facility] [address] 842 01 Medications acetaminophen 325 mg oral [...] 08/09/21 11:27:00 EDT, Route to Pharmacy Electronically, [facility], Partial fill upon patient request if the prescr... Start Date: 08/09/21 Status: Ordered EPINEPHrine 0.3 mg injectable solution = 0.3 mg, Intramuscular, Once, PRN Anaphylactic Reaction, Use for anaphylactic reaction. may repeatif necessary, # 2 each, 0 Refills, Soft Stop, 01/10/21 12:01:00 EST, [facility]/pharmacy #2334, Partial fill upon patient request if the [...] Dry Weight Start Date: 05/10/20 Status: Ordered ketoconazole 2% topical shampoo See Instructions, Apply topically to affected areas (e.g. dry skin patches behind ears), leave for 10-15 minutes and then rinse off in the shower. Reapeat this daily for three days., # 120 mL, 0 Refills, Soft Stop, 05/02/23 13:22:00 EDT, [facility]/pharmacy... Start Date: 05/02/23 Status: Ordered levothyroxine 0.1 mg oral tablet 1 tablet, By Mouth, Daily, # 90 tablet, 3 Refills, 05/02/23 12:55:00 EDT, [facility]/pharmacy #2339, 160.02, cm, 05/02/23 12:31:00 EDT, Height, 137.4, kg, 08/08/21 9:30:00 EDT, Dry Weight Start Date: 05/02/23 Status: Ordered Multivitamin Tablet By Mouth, Daily, 0 Refills, Maintenance, 07/27/21 12:14:00 EDT, Partial fill upon patient request if the prescription is for a schedule II opioid drug. Start Date: 07/27/21 Status: Ordered omeprazole 20 mg oral enteric coated capsule 1 capsule = 20 mg, By Mouth, 2 times a day, # 120 capsule, 4 Refills, Maintenance, 08/09/21 11:28:00 EDT, EC Capsule, [facility], Partial fill upon patient request if the prescription is for a schedule II opioid drug., 160.02, cm, 09/08/... Start Date: 08/09/21 Status: Ordered sertraline 50 mg oral tablet 1 tablet = 50 mg, By Mouth, Daily, # 30 tablet, 2 Refills, Maintenance, 05/02/23 12:54:00 EDT, Tablet, [facility]/pharmacy #4258, Partial fill upon patient request if the prescription is for a schedule II opioid drug., 160.02, cm, 05/02/23 12:31:00 EDT, [facility]... Start Date: 05/02/23 Status: Ordered Trulicity Pen 1.5 mg/0.5 mL subcutaneous solution See Instructions, INJECT 0.5ML SUBCUTANEOUSLY EVERY WEEK. ROTATE INFECTION SITES., # 2 Unknown, 6 Refills, Maintenance, 08/17/22 13:33:00 EDT, [facility] ST[facility] 82054, 160.02, cm, 10/02/21 10:20:00 EDT, Height, 137.4, [...] Confirmed Active Iron deficiency anemia Confirmed Active Severe obesity Confirmed Active Diagnosis Diagnosis Type Effective Dates Health Status Clinical Service Informant Annual physical exam Discharge Diagnosis 05/02/23 Controlled diabetes mellitus Discharge Diagnosis 05/02/23 Severe obesity Discharge Diagnosis 05/02/23 Tinea corporis Discharge Diagnosis 05/02/23 Vital Signs Most recent to oldest [Reference Range]: 1 Height 160.02 cm (05/02/23 12:31 PM) Weight 119.6 kg (05/02/23 12:31 PM) Oxygen Saturation [94-100 %] 100 % (05/02/23 12:31 PM) Pulse Rate [55-90 bpm] 69 bpm (05/02/23 12:31 PM) Body Mass Index [18.5-24.99 kg/m2] 46.71 kg/m2 *>HHI* (05/02/23 12:31 PM) Blood Pressure [90-138/55-84 mm Hg] 110/ 50mm Hg (05/02/23 12:31 PM) Blood pressure sites Arm, left (05/02/23 12:31 PM) Weight Obtained Via Standing scale (05/02/23 12:31 PM) Dry Weight Obtained Via Standing scale (05/02/23 12:31 PM) Social History Social History Type Response Smoking Status Never smoker; Tobacc o user in household: No entered on: 02/21/18 Sex Note * Chloe Dill: PERFORM, SIGN, VERIFY Event Display: Patient Education/Instruction Authored Date: [id number] [facility] *BMP So Alan Crystal Clinical Summary Name MARCIA GEE Age 42 Years 1980 PCP Kay Cormier NP PCP Visit Date 05/02/2023 11:55:00 Additional Instructions: Scheduled Appointments?? Future Appointments ?No Future Appointments Scheduled Follow-Up Instructions ?? With: Address: When: Kay Cormier NP Within 1 month Comments: 20 minutes telehealth f/u anxiety, labs With: Address: When: Kay Cormier NP Within 1 year Comments: CPE Diagnosis Major depressive disorder, single episode, unspecified; Hypothyroidism, unspecified Medications: Please continue your medications until treatment is completed or stopped by your provider. Discuss any questions related to medications with your provider. New Medications [id number], [address] [place] [phone], [phone] Sertraline (sertraline 50 mg oral tablet) 1 tab(s) Oral Daily. Refills: 2. Next Dose: Medications to Continue with No Changes [facility], [address] [place] [phone], [phone] Levothyroxine (levothyroxine 0.1 mg oral tablet) 1 tab(s) Oral Daily. Refills: 3. Next Dose: These medications were not printed or sent to your pharmacy Acetaminophen (acetaminophen 325 mg oral tablet) 2 tab(s) Oral every 4 hours. Next Dose: Aspirin (aspirin 81 mg oral tablet) 1 tab(s) Oral Daily. Refills: 0. Next Dose: Docusate (Colace sodium 100 mg oral capsule) 1 capsule Oral twice a day. with plenty of water. Refills: 0. Next Dose: dulaglutide (Trulicity Pen 1.5 mg/0.5 mL subcutaneous solution) INJECT 0.5ML SUBCUTANEOUSLY EVERY WEEK. ROTATE INFECTION SITES.. Refills: 6. Next Dose: Durable Medical Equipment (Freestyle Lite Lancets) dm 2 E11.9 check blood sugars twice a day and as needed. Refills: 11. Next Dose: Durable Medical Equipment (Freestyle Lite Monitor) dm 2 E11.9 check blood sugars twice a day and as needed. Refills: 0. Next Dose: Durable Medical Equipment (Freestyle Lite Test Strips) dm 2 E11.9 check blood sugars twice a day and as needed. Refills: 11. Next Dose: EPINEPHrine (EPINEPHrine 0.3 mg injectable solution) 0.3 Milligram Intramuscular once as needed Anaphylactic Reaction. Use for anaphylactic reaction. may repeat if necessary. Refills: 0. Next Dose: Multivitamin (Multivitamin Tablet) Oral Daily. Next Dose: Omeprazole (omeprazole 20 mg oral enteric coated capsule) 1 capsule Oral twice a day. Refills: 4. Next Dose: Allergy Info:?? vancomycin; clarithromycin; amoxicillin Medications Given This Visit Future Orders ?MM Digital Mammo Screening? Order Date:05/02/23?- Complete on or after?05/02/23 Vital Signs Height 160.02 cm Weight 119.6 kg BMI 46.71 kg/m2 Blood Pressure 110 mm Hg/50 mm Hg Temperature Pulse Rate 69 bpm Respiratory Rate 02 Sat Mode of Delivery 100 %/ You can now view a summary of your hospital visit from the comfort of your home through a free online portal called [employer]. [employer] is a website that allows you to securely view your medical information including discharge summary, medications and follow-up visits. ??You can alsosend a secure electronic message to your doctor???s office to request appointments, renew medications or just ask a question. You can enroll at [email or web address] or register during your next office visit. Disclaimer:?? The information provided is of a general nature and is intended to be used in conjunction with the recommendations and advice of your health care practitioner. ??Every effort has been made to ensure that the information provided is accurate and complete at the time it is provided to you however, as your needs change, or, as new ??information becomes available, different or additional instructions may be required. If you have questions, please consult with your primary care provider or pharmacist, as appropriate. ??This information is not intended to serve as substitution for assessment and evaluation by a qualified health care provider. If you do not have a primary care provider, you may find a [facility] provider by calling [facility] [employer] Link at [phone]. For information about the plan of care including goals and instructions for your diagnosis, please see the patient education orders section of this document. Patient Education Materials?? The content of this educational material or handout may have been modified, supplemented, or adapted from its original content and format to support your individualized medical care. Patient Care team information Care Team Personnel Name: Ivy Pardo RN Position: [facility] RN Member Role: Primary Care Nurse Name: Kay Cormier NP Position: [facility] PCO Associate Professional Member Role: PCP Address: Address: [address] [place] [id number]- Name: Shazia Hughes RN Position: [facility] RN Member Role: Primary Care Nurse Care Team Related Persons Name: FINA SALMERON Address: home [address] [place] [address] Name: JAMA MALONE Address: home [address] [place] [address] Name: KEYON WHITE
--- OUTSIDE RECORDS SUMMARY | 2023-06-28 00:48 | XMS_ITS | Continuity of Care Document ---
Author Name Unknown Organization [facility] Address [address] [place] [address]- Care Team Providers Care Property Utilization Manager Name Role Phone James FONG, Emma Oreilly Primary Care Physician [phone] Encounter [facility] Date(s): 07/27/21 - 08/26/21 [facility] [address] [place] [address] Attending Physician: Admtr, Ar8 Admitting Physician: Admtr, [...] Given 1Result Comment: Covid 19 mRNA lot [id number] exp 05-01-2021 [facility] 2Result Comment: covid-19 mRNa lot [id number] exp 03-31-2021 [facility] 3Result Comment: Covid-19 mRNA lot [id number] exp 03-31-2021 [facility] 4Result Comment: [02/21/2018] [facility] [id number] 842 01 Medications acetaminophen 325 mg oral [...] 08/09/21 11:27:00 EDT, Route to Pharmacy Electronically, [facility], Partial fill upon patient request if the prescr... Start Date: 08/09/21 Status: Ordered EPINEPHrine 0.3 mg injectable solution = 0.3 mg, Intramuscular, Once, PRN Anaphylactic Reaction, Use for anaphylactic reaction. may repeatif necessary, # 2 each, 0 Refills, Soft Stop, 01/10/21 12:01:00 EST, [facility]/pharmacy #9407, Partial fill upon patient request if the [...] Mouth, Daily, # 30 tablet, 5 Refills, [facility] 43338, 160.02, cm, 08/09/21 4:06:00 EDT, Height, 137.4, [...] Refills, Maintenance, 08/09/21 11:28:00 EDT, EC Capsule, [facility], Partial fill upon patient request if the prescription is for a schedule II opioid drug., 160.02, cm, ... Start Date: 08/09/21 Status: Ordered Trulicity Pen 1.5 mg/0.5 mL subcutaneous solution See Instructions, 0.5 ML SUBCUTANEOUS INJECTION EVERY WEEK,INSTR:ROTATE INJECTION SITES, # 2 Unknown, 6 Refills, 07/29/21 14:27:00 EDT, [facility]/pharmacy #2339, 165, cm, 07/27/21 12:33:00 [...]
--- OUTSIDE RECORDS SUMMARY | 2023-06-28 00:48 | XMS_ITS | Continuity of Care Document ---
Author Name Unknown Organization [facility] Address [address] [place] [address]- Care Team Providers Care Truck Headlight Assembler Name Role Phone Casa FONG, Kay Villela Primary Care Physician Encounter [facility] [place] Date(s): 12/25/22 - 01/01/23 [facility] [address] [place] [address]- Attending Physician: Chelo Retana Allergies, Adverse Reactions, Alerts Substance Reaction Severity [...] Given 1Result Comment: Covid 19 mRNA lot [id number] exp 05-01-2021 [facility] 2Result Comment: covid-19 mRNa lot [id number] exp 03-31-2021 [facility] 3Result Comment: Covid-19 mRNA lot [id number] exp 03-31-2021 [facility] 4Result Comment: [02/21/2018] [facility] [id number] 842 01 Medications acetaminophen 325 mg oral [...] 08/09/21 11:27:00 EDT, Route to Pharmacy Electronically, [facility], Partial fill upon patient request if the prescr... Start Date: 08/09/21 Status: Ordered EPINEPHrine 0.3 mg injectable solution = 0.3 mg, Intramuscular, Once, PRN Anaphylactic Reaction, Use for anaphylactic reaction. may repeatif necessary, # 2 each, 0 Refills, Soft Stop, 01/10/21 12:01:00 EST, [facility]/pharmacy #[id number], Partial fill upon patient request [...] Mouth, Daily, # 90 tablet, 1 Refills, [facility] STORE 47930, 160.02, cm, 10/02/21 10:20:00 EDT, Height, 137.4, kg, 08/08/21 9:30:00 EDT, Dry Weight Start Date: 01/30/22 Status: Ordered Macrobid macrocrystals-monohydrate 100 mg oral capsule 1 capsule = 100 mg, By Mouth, 2 times a day, for 7 days, Avoid alcohol while on this medication. Take with food to avoid GI intolerance., # 14 capsule, 0 Refills, Acute 01/03/23 9:52:00 EST, :52:00 EST, Capsule, [facility]/pharmacy #2339, Partial f... Start Date: 12/27/22 Stop Date: 01/03/23 Status: Ordered Multivitamin Tablet By Mouth, Daily, 0 Refills, Maintenance, 07/27/21 12:14:00 EDT, Partial fill upon patient request if the prescription is for a schedule II opioid drug. Start Date: 07/27/21 Status: Ordered omeprazole 20 mg oral enteric coated capsule 1 capsule = 20 mg, By Mouth, 2 times a day, # 120 capsule, 4 Refills, Maintenance, 08/09/21 11:28:00 EDT, EC Capsule, [facility], Partial fill upon patient request if the prescription is for a schedule II opioid drug., 160.02, cm, ... Start Date: 08/09/21 Status: Ordered Trulicity Pen 1.5 mg/0.5 mL subcutaneous solution See Instructions, INJECT 0.5ML SUBCUTANEOUSLY EVERY WEEK. ROTATE INFECTION SITES., # 2 Unknown, 6 Refills, Maintenance, 08/17/22 13:33:00 EDT, [id number], 160.02, cm, 10/02/21 10:20:00 EDT, Height, 137.4, [...] anemia Confirmed Active Severe obesity Confirmed Active Vital Signs Most recent to oldest [Reference Range]: 1 Height 160.02 cm (12/25/22 10:43 AM) Weight 116.7 kg (12/25/22 10:43 AM) Oxygen Saturation [94-100 %] 100 % (12/25/22 10:43 AM) Pulse Rate [55-90 bpm] 67 bpm (12/25/22 10:43 AM) Body Mass Index [18.5-24.99 kg/m2] 45.57 kg/m2 *>HHI* (12/25/22 10:43 AM) Blood Pressure [90-138/55-84 mm Hg] 114/ 73mm Hg (12/25/22 10:43 AM) Temperature [96.8-100.4 DegF] 97.2 DegF (12/25/22 10:43 AM) Mode of Delivery (Oxygen) Room air (12/25/22 10:43 AM) Blood pressure sites Arm, right (12/25/22 10:43 AM) Temperature Route Temporal (12/25/22 10:43 AM) Weight Obtained Via Standing scale (12/25/22 10:43 AM) Social History Social History Type Response Smoking Status Never smoker; Tobacc o user in household: No entered on: 02/21/18 Sex Note * Carline Esteban: PERFORM, SIGN, VERIFY Event Display: Patient Education/Instruction Authored Date: [id number] [facility] *FRANCIS Crystal Clinical Summary Name MARCIA GEE Age 42 Years 1980 PCP Casa FONG, Kay Villela PCP Visit Date 12/25/2022 09:19:00 Additional Instructions: Scheduled Appointments?? Future Appointments ?No Future Appointments Scheduled Follow-Up Instructions ?? Diagnosis Encounter for screening, unspecified; Hematuria, unspecified Medications: Please continue your medications until treatment is completed or stopped by your provider. Discuss any questions related to medications with your provider. Medications to Continue with No Changes These medications were not printed or sent [...] repeat if necessary. Refills: 0. Next Dose: Levothyroxine (levothyroxine 0.1 mg oral tablet) 1 tab(s) Oral Daily. Refills: 1. Next Dose: Multivitamin (Multivitamin Tablet) Oral Daily. Next Dose: Omeprazole (omeprazole 20 mg oral enteric coated capsule) 1 capsule Oral twice a day. Refills: 4. Next Dose: Allergy Info:?? vancomycin; clarithromycin; amoxicillin Medications Given This Visit Future Orders ?CBC w/ Differential? Order Date:12/25/22?- Complete on or after?12/25/22 ?Urine Dipstick? Order Date:12/25/22?- Complete on or after?12/25/22 ?UA W/Reflex Culture & Renal? Order Date:12/25/22?- Complete on or after?12/25/22 ?Basic Metabolic Panel? Order Date:12/25/22?- Complete on or after?12/25/22 Vital Signs Height 160.02 cm Weight 116.7 kg BMI 45.57 kg/m2 Blood Pressure 114 mm Hg/73 mm Hg Temperature 97.2 DegF Pulse Rate 67 bpm Respiratory Rate 02 Sat Mode of Delivery 100 %/Room air You can now view a summary of your hospital visit from the comfort of your home through a free online portal called [employer]. [employer] is a website that allows you to securely view your medical information including discharge summary, medications and follow-up visits. ??You can alsosend a secure electronic message to your doctor???s office to request appointments, renew medications or just ask a question. You can enroll at [email or web address] or register during your next office visit. [...] primary care provider, you may find a [facility] provider by calling [facility] at [phone]. For information about the plan of care [...] Care Nurse Name: Kay Cormier NP Position: [facility] PCO Associate Professional Member Role: PCP Address: Address: [address] [place] [id number] Name: Marilyn Razo RN Position: S RN Member Role: Primary Care Nurse Name: Shazia Hughes RN Position: S RN Member Role: Primary Care Nurse Care Team Related Persons Name: FINA SALMERON Address: home [address] [place] [address] Name: JAMA MALONE Address: home [address] [place] [id number] Name: KEYON WHITE
--- OUTSIDE RECORDS SUMMARY | 2023-06-28 00:48 | XMS_ITS | Continuity of Care Document ---
Author Name Unknown Organization [facility] Address [address] [place] [address]- Care Team Providers Care Life Skills Consultant Name Role Phone James FONG, Emma Oreilly Primary Care Physician [phone] Encounter [facility] [place] Date(s): 02/14/20 - 02/14/[address] [address]- [facility] Encounter Diagnosis Abscess right mid back(Final) - 02/14/20 Discharge Disposition: A-D/C Home Attending Physician: Roc Ann DO Admitting Physician: Roc Ann DO Referring Physician: Not on Staff, Referring MD Allergies, Adverse Reactions, Alerts No Known Medication Allergies Immunizations Given and Recorded Vaccine Date Status Refusal Reason tetanus/diphtheria/pertussis, acel(Tdap) 1 02/21/18 Given 1Result Comment: [02/21/2018] [facility] [id number] 842 01 Medications aspirin 81 mg oral tablet 1 tablet = 81 mg, By Mouth, Daily, # 90 tablet, 0 Refills, Maintenance, 02/13/19 11:23:57 EDT, Tablet Start Date: 02/13/19 Status: Ordered cholecalciferol 50,000 intl units oral capsule 1 capsule = 50,000 International_Units, By Mouth, Every week, # 8 capsule, 0 Refills, Maintenance, 03/23/19 10:20:58 EDT, Capsule Start Date: 03/23/19 Status: Ordered ferrous sulfate 325 mg oral tablet See Instructions, 1 tablet By Mouth QOD, # 30 tablet, 3 Refills, Maintenance, 03/23/19 10:21:25 EDT, Tablet Start Date: 03/23/19 Status: Ordered metFORMIN 500 mg oral tablet, extended release 4 tablet = 2,000 mg, By Mouth, Daily, # 360 tablet, 3 Refills, Maintenance, 10/28/19 10:04:07 EST, ER Tablet Start Date: 10/28/19 Stop Date: 10/22/20 Status: Ordered Wellbutrin XL 150 mg/24 hours oral tablet, extended release 1 tablet = 150 mg, By Mouth, Every 24 hours, # 90 tablet, 3 Refills, Maintenance, 02/13/19 11:48:14EDT, ER Tablet Start Date: 02/13/19 Status: Ordered Problem List Condition Effective Dates Status Health Status Inform ant Chest pain(Confirmed) Active Depression(Confirmed) Active Iron deficiency anemia(Confirmed) Active Morbid obesity(Confirmed) Active Prediabetes(Confirmed) Active Results Orders for Microbiology Reports Name Date Wound Superficial Culture W/ Gram Smear 02/14/20 Microbiology Reports TEST:Superficial Wound Culture STATUS:Unauthenticated BODY SITE: SOURCE:SWAB1 COLLECTED DATE/TIME:02/14/20 9:30 AM Superficial Wound Culture SPECIMEN DESCRIPTION : SWAB BACK SPECIAL REQUESTS : NONE GRAM STAIN : 2+ POLYMORPHONUCLEAR LEUKOCYTES NO ORGANISMS SEEN REPORT STATUS : PRELIMINARY REPORT Vital Signs Most recent to oldest [Reference Range]: 1 2 Oxygen Saturation [94-100 %] 100 % (02/14/20 9:44 AM) 96 % (02/14/20 5:24 AM) Pulse Rate [55-90 bpm] 74 bpm (02/14/20 9:44 AM) 58 bpm (02/14/20 5:24 AM) Blood Pressure [90-138/55-84 mm Hg] 121/ 68mm Hg (02/14/20 9:44 AM) 143/98mm Hg *H* (02/14/20 5:24 AM) Respiratory Rate [16-30 br/min] 16 br/mi n (02/14/20 9:44 AM) 17 br/min (02/14/20 5:24 AM) Temperature [96.8-100.4 DegF] 97.9 DegF (02/14/20 9:44 AM) 97.8 DegF (02/14/20 5:24 AM) Mode of Delivery (Oxygen) Room air (02/14/20 9:44 AM) Room air (02/14/20 5:24 AM) Temperature Route Oral (02/14/20 9:44 AM) Oral (02/14/20 5:24 AM) Social History Social History Type Response Smoking Status Never smoker; Tobacc o user in household: No entered on: 02/21/18 Sex
--- OUTSIDE RECORDS SUMMARY | 2023-06-28 00:48 | XMS_ITS | Continuity of Care Document ---
Author Name Unknown Organization [facility] Address Unknown Care Team Providers Care Senior Product Designer Name Role Phone Casa FONG, Kay Villela Primary Care Physician [phone] Encounter [facility] [place] Date(s): 10/05/21 - 11/04/21 [facility] Attending Physician: Admtr, Ar8 Admitting Physician: Admtr, [...] Given 1Result Comment: Covid 19 mRNA lot [id number] exp 05-01-2021 [facility] 2Result Comment: covid-19 mRNa lot [id number] exp 03-31-2021 [facility] 3Result Comment: Covid-19 mRNA lot [id number] exp 03-31-2021 [facility] 4Result Comment: [02/21/2018] [facility] [id number] 842 01 Medications acetaminophen 325 mg oral [...] 08/09/21 11:27:00 EDT, Route to Pharmacy Electronically, [facility], Partial fill upon patient request if the prescr... Start Date: 08/09/21 Status: Ordered EPINEPHrine 0.3 mg injectable solution = 0.3 mg, Intramuscular, Once, PRN Anaphylactic Reaction, Use for anaphylactic reaction. may repeatif necessary, # 2 each, 0 Refills, Soft Stop, 01/10/21 12:01:00 EST, [facility]/pharmacy #[id number], Partial fill upon patient request if the [...] Mouth, Daily, # 30 tablet, 5 Refills, [facility] STORE 31848, 160.02, cm, 08/09/21 4:06:00 EDT, Height, 137.4, [...] Refills, Maintenance, 08/09/21 11:28:00 EDT, EC Capsule, [facility], Partial fill upon patient request if the prescription is for a schedule II opioid drug., 160.02, cm, ... Start Date: 08/09/21 Status: Ordered Trulicity Pen 1.5 mg/0.5 mL subcutaneous solution See Instructions, 0.5 ML SUBCUTANEOUS INJECTION EVERY WEEK,INSTR:ROTATE INJECTION SITES, # 2 Unknown, 6 Refills, 07/29/21 14:27:00 EDT, [facility]/pharmacy #[id number], 165, cm, 07/27/21 12:33:00 [...] Procedure Date Related Diagnosis Body Site Status Pap smear and HPV cotesting 1 04/01/18 Completed 1Negative for intraepithelial lesion or malignancy. Repeat in 5 years. Social History Social History Type Response Smoking Status Never smoker; Tobacc o user in household: No entered on: 02/21/18 Sex
--- OUTSIDE RECORDS SUMMARY | 2023-06-28 00:48 | XMS_ITS | Continuity of Care Document ---
Author Name Unknown Organization [facility] Address [address] [place] [address] [address] [place] [address]- Care Team Providers Care Service Delivery Analyst Name Role Phone James FONG, Emma Oreilly Primary Care Physician Encounter [facility] [place] Date(s): 12/30/20 - 01/06/[address] [place], [place] [address] Attending Physician: Lorrie Mcgowan RD Referring Physician: Emma Ramirez NP Allergies, Adverse Reactions, Alerts No Known Medication Allergies Immunizations Given and Recorded Vaccine Date Status Refusal Reason SARS-CoV-2 (COVID-19) mRNA BNT-162b2 vac 1 01/01/21 Recorded SARS-CoV-2 (COVID-19) mRNA BNT-162b2 vac 2 12/11/20 Recorded SARS-CoV-2 (COVID-19) mRNA BNT-162b2 vac 3 12/11/20 Recorded tetanus/diphtheria/pertussis, acel(Tdap) 4 02/21/18 Given 1Result Comment: Covid 19 mRNA lot [id number] exp 05-01-2021 [facility] 2Result Comment: covid-19 mRNa lot [id number] exp 03-31-2021 [facility] 3Result Comment: Covid-19 mRNA lot [id number] exp 03-31-2021 [facility] 4Result Comment: [02/21/2018] [facility] [address] 842 01 Medications amoxicillin 500 mg oral tablet 2 tablet = 1,000 mg, By Mouth, 2 times a day, for 14 days, # 56 tablet, 0 Refills, Acute 01/13/21 15:19:00 EST, 12/30/20 15:19:00 EST, Tablet, [id number], Partial fill upon patient request ifthe prescription is for a schedule II opioid drug.,... Start Date: 12/30/20 Stop Date: 01/13/21 Status: Ordered aspirin 81 mg oral tablet [...] mL, 5 Refills, Maintenance, 06/14/20 9:36:00 EDT, [facility]/pharmacy #2339, 161.1, cm, 05/30/20 8:03:00 EDT,Height, 149.3, kg, 04/27/20 2:13:00 EDT, Dry Weight Start Date: 06/14/20 Status: Ordered clarithromycin 500 mg oral tablet 1 tablet = 500 mg, By Mouth, Every 12 hours, for 14 days, # 28 tablet, 0 Refills, Acute 01/13/21 15:19:00 EST, 12/30/20 15:19:00 EST, Tablet, [facility]/pharmacy #[id number], Partial fill upon patient request if the prescription is for a schedule II opioid drug.,... Start Date: 12/30/20 Stop Date: 01/13/21 Status: Ordered ferrous sulfate 325 mg oral tablet See Instructions, 1 tablet By Mouth every other day, # 45 tablet, 3 Refills, Maintenance, 06/14/20 14:43:00 EDT, [facility]/pharmacy #2339, 161.1, cm, 05/30/20 [...] 2 Refills, Maintenance, 12/07/20 9:42:00 EST, Tablet, [id number], Partial fill upon patient request if [...] Dry Weight Start Date: 10/06/20 Status: Ordered omeprazole 20 mg oral enteric coated capsule 1 capsule = 20 mg, By Mouth, 2 times a day, take for 2 weeks, # 28 capsule, 0 Refills, Maintenance,12/30/20 15:19:00 EST, EC Capsule, [facility], Partial fill upon patient request if the prescription is for a schedule II opioid drug., 161.1,... Start Date: 12/30/20 Stop Date: 01/13/21 Status: Ordered Penlac Nail Lacquer 8% solution 1 application, Topically, Daily, for 48 week(s), apply to nail (top and underside), 1/4 inch of surrounding skin & nail bed, . Wipe with rubbing alcohol weekly., # 6.6 mL, 6 Refills, Acute 03/17/27 8:49:00 EDT, 10/07/20 8:49:00 EST, [facility], [facility] Start Date: 10/07/20 Stop Date: 03/17/27 Status: Ordered sertraline 50 mg oral tablet See Instructions, 1/2 tablet By Mouth Daily for 1 week then 1 tablet thereafter, # 30 tablet, 1 Refills, Maintenance, 07/02/20 9:23:00 EDT, [facility]/pharmacy #2339, 161.1, cm, 06/20/20 8:16:00 EDT, Height, 149.3, kg, 04/27/20 2:13:00 EDT, Dry Weight Start Date: 07/02/20 Status: Ordered terbinafine 1% topical cream 1 application, Topically, 2 times a day, # 15 Gm, 0 Refills, Maintenance, 04/18/20 15:15:00 EDT, Cream, [facility]/pharmacy #2339, 1 application Topically 2 times a day, 161.1, cm, 02/15/20 14:50:00 EDT, Height, 141, kg, 04/19/19 4:24:00 EDT, Dry Weight Start Date: 04/18/20 Status: Ordered Trulicity Pen 1.5 mg/0.5 mL subcutaneous solution See Instructions, 0.5 ML SUBCUTANEOUS INJECTION EVERY WEEK,INSTR:ROTATE INJECTION SITES, # 2 Unknown, 6 Refills, Maintenance, [facility] 55676, 161.1, cm, 10/06/20 10:55:00 EST, Height, 149.3, [...]
--- OUTSIDE RECORDS SUMMARY | 2023-06-28 00:48 | XMS_ITS | Continuity of Care Document ---
Author Name Unknown Organization [facility] Address [address] [place] [address]- Care Team Providers Care Showroom Sales Consultant Name Role Phone Casa FONG, Kay Villela Primary Care Physician [place] [facility] [place]s): 04/23/22 - 06/03/22 [facility] [address] [place] [address]- Attending Physician: Kay Cormier NP Referring Physician: Diaz Oliver MD Allergies, Adverse Reactions, Alerts Substance Reaction [...] Given 1Result Comment: Covid 19 mRNA lot [id number] exp 05-01-2021 [facility] 2Result Comment: covid-19 mRNa lot [id number] exp 03-31-2021 [facility] 3Result Comment: Covid-19 mRNA lot [id number] exp 03-31-2021 [facility] 4Result Comment: [02/21/2018] [facility] [address] 842 01 Medications acetaminophen 325 mg oral [...] 08/09/21 11:27:00 EDT, Route to Pharmacy Electronically, [facility], Partial fill upon patient request if the prescr... Start Date: 08/09/21 Status: Ordered EPINEPHrine 0.3 mg injectable solution = 0.3 mg, Intramuscular, Once, PRN Anaphylactic Reaction, Use for anaphylactic reaction. may repeatif necessary, # 2 each, 0 Refills, Soft Stop, 01/10/21 12:01:00 EST, [facility]/pharmacy #[id number], Partial fill upon patient request if the [...] Mouth, Daily, # 90 tablet, 1 Refills, [facility] ST[facility] 94506, 160.02, cm, 10/02/21 10:20:00 EDT, Height, 137.4, [...] Refills, Maintenance, 08/09/21 11:28:00 EDT, EC Capsule, [facility], Partial fill upon patient request if the prescription is for a schedule II opioid drug., 160.02, cm, ... Start Date: 08/09/21 Status: Ordered Trulicity Pen 1.5 mg/0.5 mL subcutaneous solution See Instructions, 0.5 ML SUBCUTANEOUS INJECTION EVERY WEEK,INSTR:ROTATE INJECTION SITES, # 2 Unknown, 6 Refills, 07/29/21 14:27:00 EDT, [facility]/pharmacy #2339, 165, cm, 07/27/21 12:33:00 EDT, Height, [...]
--- OUTSIDE RECORDS SUMMARY | 2023-06-28 00:48 | XMS_ITS | Continuity of Care Document ---
Author Name Unknown Organization [facility] Address [address] [place] [address] [address] [place] [address]- Care Team Providers Care Plate Finisher Name Role Phone Emma Ramirez NP Primary Care Physician [phone] [place] [facility] [place] - 08/10/[address] [place] [address]- [facility] Encounter Diagnosis Morbid obesity with BMI of 60.0-69.9, adult(Discharge Diagnosis) - 08/03/20 Attending Physician: Eduardo Chang Referring Physician: Emma Ramirez NP Allergies, Adverse Reactions, Alerts No Known Medication Allergies Immunizations Given and Recorded Vaccine Date Status Refusal Reason tetanus/diphtheria/pertussis, acel(Tdap) 1 02/21/18 Given 1Result Comment: [02/21/2018] [facility] [id number] 842 01 Medications aspirin 81 mg oral [...] 5 Refills, Maintenance, 06/14/20 9:36:00 EDT, [facility], 161.1, cm, 05/30/20 8:03:00 EDT,Height, 149.3, kg, 04/27/20 2:13:00 EDT, Dry Weight Start Date: 06/14/20 Status: Ordered cholecalciferol 50,000 intl units oral capsule 1 capsule = 50,000 International_Units, By Mouth, Every week, # 5 capsule, 0 Refills, Maintenance, 02/15/20 15:08:00 EDT, Capsule, [facility]/pharmacy #4471, 161.1, cm, 02/15/20 14:50:00 EDT, Height, 141, kg, 04/19/19 4:24:00 EDT, Dry Weight Start Date: 02/15/20 Status: Ordered ferrous sulfate 325 mg oral tablet See Instructions, 1 tablet By Mouth every other day, # 45 tablet, 3 Refills, Maintenance, 06/14/20 14:43:00 EDT, [facility]/pharmacy #2339, 161.1, cm, 05/30/20 8:03:00 [...] 0 Refills, Maintenance, 08/07/20 10:46:00 EDT, Solution, [facility], 161.1, cm, 07/21/20 10:06:00 EDT... Start Date: 08/07/20 Status: Ordered Problem List Condition Effective Dates Status Health Status Inform ant Morbid obesity with BMI of 6 0.0-69.9, adult(Confirmed) Active Chest pain(Confirmed) Active Depression(Confirmed) Active Iron deficiency anemia(Confirmed) Active Diabetes mellitus type II, uncontrolled(Confirmed) Active Diagnosis Diagnosis Type Effective Dates Health Status Cl inical Service Informant Morbid obesity with BMI of 60.0-69.9, adult Discharge Diagnosis 08/03/20 Procedures Procedure Date Related Diagnosis Body Site Status Laparoscopic cholecystectomy 2006 Completed Social History Social History Type Response Smoking Status Never smoker; Tobacc o user in household: No entered on: 02/21/18 Sex
--- OUTSIDE RECORDS SUMMARY | 2023-06-28 00:48 | XMS_ITS | Continuity of Care Document ---
Author Name Unknown Organization [facility] Address [address] [place] [address]- Care Team Providers Care Jammer Hooker Name Role Phone Casa FONG, Kay Villela Primary Care Physician [phone] Encounter [facility] [place] Date(s): 02/02/22 - 05/23/22 [facility] [address] [place] [address]- Attending Physician: Kay Cormier NP Allergies, Adverse Reactions, [...] Given 1Result Comment: Covid 19 mRNA lot [id number] exp 05-01-2021 [facility] 2Result Comment: covid-19 mRNa lot [id number] exp 03-31-2021 [facility] 3Result Comment: Covid-19 mRNA lot [id number] exp 03-31-2021 [facility] 4Result Comment: [02/21/2018] [facility] [id number] 842 01 Medications acetaminophen 325 mg oral [...] 08/09/21 11:27:00 EDT, Route to Pharmacy Electronically, [facility], Partial fill upon patient request if the prescr... Start Date: 08/09/21 Status: Ordered EPINEPHrine 0.3 mg injectable solution = 0.3 mg, Intramuscular, Once, PRN Anaphylactic Reaction, Use for anaphylactic reaction. may repeatif necessary, # 2 each, 0 Refills, Soft Stop, 01/10/21 12:01:00 EST, [facility]/pharmacy #[id number], Partial fill upon patient request if the [...] Mouth, Daily, # 90 tablet, 1 Refills, [facility] STORE 98706, 160.02, cm, 10/02/21 10:20:00 EDT, Height, 137.4, [...] Refills, Maintenance, 08/09/21 11:28:00 EDT, EC Capsule, [facility], Partial fill upon patient request if the prescription is for a schedule II opioid drug., 160.02, cm, ... Start Date: 08/09/21 Status: Ordered Trulicity Pen 1.5 mg/0.5 mL subcutaneous solution See Instructions, 0.5 ML SUBCUTANEOUS INJECTION EVERY WEEK,INSTR:ROTATE INJECTION SITES, # 2 Unknown, 6 Refills, 07/29/21 14:27:00 EDT, [facility]/pharmacy #2339, 165, cm, 07/27/21 12:33:00 EDT, [...]
--- OUTSIDE RECORDS SUMMARY | 2023-06-28 00:48 | XMS_ITS | Continuity of Care Document ---
Author Name Unknown Organization [facility] lt Address [address] [place] [address]- Care Team Providers Care Lean Coach Name Role Phone James FONG, Emma Oreilly Primary Care Physician [phone] [place] [facility] [place] 07/13/21 - 08/12/21 [facility] Adult [address] [place] [address]- Allergies, Adverse Reactions, Alerts Substance Reaction Severity [...] Given 1Result Comment: Covid 19 mRNA lot [id number] exp 05-01-2021 [facility] 2Result Comment: covid-19 mRNa lot [id number] exp 03-31-2021 [facility] 3Result Comment: Covid-19 mRNA lot [id number] exp 03-31-2021 [facility] 4Result Comment: [02/21/2018] [facility] [id number] 842 01 Medications acetaminophen 325 mg oral [...] 08/09/21 11:27:00 EDT, Route to Pharmacy Electronically, [facility], Partial fill upon patient request if the prescr... Start Date: 08/09/21 Status: Ordered EPINEPHrine 0.3 mg injectable solution = 0.3 mg, Intramuscular, Once, PRN Anaphylactic Reaction, Use for anaphylactic reaction. may repeatif necessary, # 2 each, 0 Refills, Soft Stop, 01/10/21 12:01:00 EST, [facility]/pharmacy #2339, Partial fill upon patient request [...] Refills, Maintenance, 08/09/21 11:28:00 EDT, EC Capsule, [facility], Partial fill upon patient request if the prescription is for a schedule II opioid drug., 160.02, cm, ... Start Date: 08/09/21 Status: Ordered oxyCODONE 5 mg oral tablet 5 mg, 1, tablet, By Mouth, Every 4 hours, PRN, # 12 tablet, Refills 0, Tot. Refills 0, Maintenance,Pain , Moderate, 08/09/21 11:27:00 EDT, Route to Pharmacy Electronically, [facility],Partial fill upon patient request if the prescripti... Start Date: 08/09/21 Status: Ordered Trulicity Pen 1.5 mg/0.5 mL subcutaneous solution See Instructions, 0.5 ML SUBCUTANEOUS INJECTION EVERY WEEK,INSTR:ROTATE INJECTION SITES, # 2 Unknown, 6 Refills, 07/29/21 14:27:00 EDT, [facility]/pharmacy #2339, 165, cm, 07/27/21 12:33:00 EDT, [...]
--- OUTSIDE RECORDS SUMMARY | 2023-06-28 00:48 | XMS_ITS | Continuity of Care Document ---
Author Name Unknown Organization [facility] Address Unknown Care Team Providers Care Dry Cleaner Presser Name Role Phone aJmes FONG, Emma Oreilly Primary Care Physician [place] [facility] [place](s): 08/15/21 - 08/22/21 [facility] Attending Physician: Aristides Oleary MD [...] Given 1Result Comment: Covid 19 mRNA lot [id number] exp 05-01-2021 [facility] 2Result Comment: covid-19 mRNa lot [id number] exp 03-31-2021 [facility] 3Result Comment: Covid-19 mRNA lot [id number] exp 03-31-2021 [facility] 4Result Comment: [02/21/2018] [facility] 60274 842 01 Medications acetaminophen 325 mg oral [...] Soft Stop, 01/10/21 12:01:00 EST, [facility]/pharmacy #2339, Partial fill upon patient request if [...] Mouth, Daily, # 30 tablet, 5 Refills, [facility] STORE 58157, 160.02, cm, 08/09/21 4:06:00 EDT, Height, 137.4, [...] 11:28:00 EDT, EC Capsule, [facility], Partial fill upon patient request if the prescription is for a schedule II opioid drug., 160.02, cm, ... Start Date: 08/09/21 Status: Ordered Trulicity Pen 1.5 mg/0.5 mL subcutaneous solution See Instructions, 0.5 ML SUBCUTANEOUS INJECTION EVERY WEEK,INSTR:ROTATE INJECTION SITES, # 2 Unknown, 6 Refills, 07/29/21 14:27:00 EDT, [facility]/pharmacy #2339, 165, cm, 07/27/21 12:33:00 EDT, Height, [...] oldest [Reference Range]: 1 Height 160.02 cm (08/15/21 10:52 AM) Weight 131.1 kg (08/15/21 10:52 AM) Pulse Rate [55-90 bpm] 76 bpm (08/15/21 10:52 AM) Body Mass Index [18.5-24.99] 51.2 *>HHI* (08/15/21 10:52 AM) Blood Pressure [90-138/55-84 mm Hg] 106/ 71mm Hg (08/15/21 10:52 AM) Respiratory Rate [16-30 br/min] 16 br/mi n (08/15/21 10:52 AM) Blood pressure sites Arm, left (08/15/21 10:52 AM) Temperature Route Temporal (08/15/21 10:52 AM) Weight Obtained Via Standing scale (08/15/21 10:52 AM) Social History Social History Type Response Smoking Status Never smoker; Tobacc o user in household: No entered on: 02/21/18 Sex
--- OUTSIDE RECORDS SUMMARY | 2023-06-28 00:48 | XMS_ITS | Continuity of Care Document ---
Author Name Unknown Organization [facility] Hussein lt Address [address] [place] [address]- Care Team Providers Care Credit Director Name Role Phone Casa FONG, Kay Villela Primary Care Physician [phone] [place] [facility] [place] - 11/19/21 [facility] Adult [address] [place] [address]- Attending Physician: Admtr, Ar8 Admitting Physician: Admtr, [...] Given 1Result Comment: Covid 19 mRNA lot [id number] exp 05-01-2021 [facility] 2Result Comment: covid-19 mRNa lot [id number] exp 03-31-2021 [facility] 3Result Comment: Covid-19 mRNA lot [id number] exp 03-31-2021 [facility] 4Result Comment: [02/21/2018] [facility] [id number] 842 01 Medications acetaminophen 325 mg oral [...] 08/09/21 11:27:00 EDT, Route to Pharmacy Electronically, [facility], Partial fill upon patient request if the prescr... Start Date: 08/09/21 Status: Ordered EPINEPHrine 0.3 mg injectable solution = 0.3 mg, Intramuscular, Once, PRN Anaphylactic Reaction, Use for anaphylactic reaction. may repeatif necessary, # 2 each, 0 Refills, Soft Stop, 01/10/21 12:01:00 EST, [facility]/pharmacy #2671, Partial fill upon patient request if the [...] Mouth, Daily, # 30 tablet, 5 Refills, [facility] STORE 24257, 160.02, cm, 08/09/21 4:06:00 EDT, Height, 137.4, [...] Refills, Maintenance, 08/09/21 11:28:00 EDT, EC Capsule, [facility], Partial fill upon patient request if the prescription is for a schedule II opioid drug., 160.02, cm, ... Start Date: 08/09/21 Status: Ordered Trulicity Pen 1.5 mg/0.5 mL subcutaneous solution See Instructions, 0.5 ML SUBCUTANEOUS INJECTION EVERY WEEK,INSTR:ROTATE INJECTION SITES, # 2 Unknown, 6 Refills, 07/29/21 14:27:00 EDT, [facility]/pharmacy #2339, 165, cm, 07/27/21 12:33:00 EDT, Height, [...]
--- OUTSIDE RECORDS SUMMARY | 2023-06-28 00:48 | XMS_ITS | Continuity of Care Document ---
Author Name Unknown Organization [facility] Address [address] [place] [address]- Care Team Providers Care Quantometer Operator Name Role Phone James FONG, Emma Oreilly Primary Care Physician [place] [facility] [place]20 - 07/24/20 [facility] Adult [address] [place] [address]- [facility] Attending Physician: Candy Jones Admitting Physician: AdmtrCandy Referring Physician: Admtr, Ar8 Allergies, Adverse Reactions, Alerts No Known Medication Allergies Immunizations Given and Recorded Vaccine Date Status Refusal Reason tetanus/diphtheria/pertussis, acel(Tdap) 1 02/21/18 Given 1Result Comment: [02/21/2018] [facility] [id number] 842 01 Medications aspirin 81 mg oral [...] 0 Refills, Maintenance, 02/15/20 15:08:00 EDT, Capsule, [facility]/pharmacy #4471, 161.1, cm, 02/15/20 14:50:00 EDT, Height, 141, kg, 04/19/19 4:24:00 EDT, Dry Weight Start Date: 02/15/20 Status: Ordered ferrous sulfate 325 mg oral tablet See Instructions, 1 tablet By Mouth every other day, # 45 tablet, 3 Refills, Maintenance, 06/14/20 14:43:00 EDT, [facility]/pharmacy #2339, 161.1, cm, 05/30/20 [...] tablet, 5 Refills, Maintenance, 05/06/20 10:27:00 EDT, [facility]/pharmacy #2339, 161.1, cm, 04/28/20 11:33:00 EDT, Height, 149.3, kg, 04/27/20 2:13:00 EDT, D... Start Date: 05/06/20 Status: Ordered sertraline 50 mg oral tablet See Instructions, 1/2 tablet By Mouth Daily for 1 week then 1 tablet thereafter, # 30 tablet, 1 Refills, Maintenance, 07/02/20 9:23:00 EDT, [facility]/pharmacy #2339, 161.1, cm, 06/20/20 8:16:00 EDT, Height, 149.3, kg, 04/27/20 2:13:00 EDT, Dry Weight Start Date: 07/02/20 Status: Ordered terbinafine 1% topical cream 1 application, Topically, 2 times a day, # 15 Gm, 0 Refills, Maintenance, 04/18/20 15:15:00 EDT, Cream, [facility]/pharmacy #2339, 1 application Topically [...] 0 Refills, Maintenance, 06/20/20 10:50:00 EDT, Solution, [facility]/pharmacy #2339, 161.1, cm, 06/20/20 8:16:00 EDT,... [...]
--- OUTSIDE RECORDS SUMMARY | 2023-06-28 00:48 | XMS_ITS | Continuity of Care Document ---
Author Name Unknown Organization [facility] Address [address] [place] [address]- Care Team Providers Care Sales Development Coordinator Name Role Phone James FONG, Emma Oreilly Primary Care Physician En[place] [facility] [place] Date(s): 06/23/20 - 07/23/20 [facility] [address] [place] [address]- [facility] Attending Physician: Candy Jones Admitting Physician: Candy Jones Referring Physician: AdmtrCandy Allergies, Adverse Reactions, Alerts No Known Medication Allergies Immunizations Given and Recorded Vaccine Date Status Refusal Reason tetanus/diphtheria/pertussis, acel(Tdap) 1 02/21/18 Given 1Result Comment: [02/21/2018] [facility] [id number] 842 01 Medications aspirin 81 mg oral [...] 5 Refills, Maintenance, 06/14/20 9:36:00 EDT, [facility], 161.1, cm, 05/30/20 8:03:00 EDT,Height, 149.3, kg, 04/27/20 2:13:00 EDT, Dry Weight Start Date: 06/14/20 Status: Ordered cholecalciferol 50,000 intl units oral capsule 1 capsule = 50,000 International_Units, By Mouth, Every week, # 5 capsule, 0 Refills, Maintenance, 02/15/20 15:08:00 EDT, Capsule, [facility]/pharmacy #4471, 161.1, cm, 02/15/20 14:50:00 EDT, Height, 141, kg, 04/19/19 4:24:00 EDT, Dry Weight Start Date: 02/15/20 Status: Ordered ferrous sulfate 325 mg oral tablet See Instructions, 1 tablet By Mouth every other day, # 45 tablet, 3 Refills, Maintenance, 06/14/20 14:43:00 EDT, [facility]/pharmacy #2339, 161.1, cm, 05/30/20 8:03:00 [...] tablet, 5 Refills, Maintenance, 05/06/20 10:27:00 EDT, [facility]/pharmacy #2339, 161.1, cm, 04/28/20 11:33:00 [...] 0 Refills, Maintenance, 04/18/20 15:15:00 EDT, Cream, [facility]/pharmacy #2339, 1 application Topically 2 [...] 0 Refills, Maintenance, 06/20/20 10:50:00 EDT, Solution, [facility]/pharmacy #2339, 161.1, cm, 06/20/20 8:16:00 [...]
--- OUTSIDE RECORDS SUMMARY | 2023-06-28 00:49 | XMS_ITS | Continuity of Care Document ---
Author Name Unknown Organization [facility] Address [address] [place] [address] [address] [place] [address]- Care Team Providers Care Senior Online Marketing Manager Name Role Phone James FONG, Emma Oreilly Primary Care Physician [phone] Encounter [facility] [place] [facility] [place] [id number] Date(s): 09/20/20 - 09/27/[address] [place] [address]- [facility] Attending Physician: Knee RD , Lorrie Allergies, Adverse Reactions, Alerts No Known Medication Allergies Immunizations Given and Recorded Vaccine Date Status Refusal Reason tetanus/diphtheria/pertussis, acel(Tdap) 1 02/21/18 Given 1Result Comment: [02/21/2018] [facility] [id number] 842 01 Medications aspirin 81 mg oral [...] 0 Refills, Maintenance, 02/15/20 15:08:00 EDT, Capsule, [facility]/pharmacy #4471, 161.1, cm, 02/15/20 14:50:00 EDT, Height, 141, kg, 04/19/19 4:24:00 EDT, Dry Weight Start Date: 02/15/20 Status: Ordered ferrous sulfate 325 mg oral tablet See Instructions, 1 tablet By Mouth every other day, # 45 tablet, 3 Refills, Maintenance, 06/14/20 14:43:00 EDT, [facility]/pharmacy #2339, 161.1, cm, 05/30/20 8:03:00 EDT, Height, [...]
--- OUTSIDE RECORDS SUMMARY | 2023-06-28 00:49 | XMS_ITS | Continuity of Care Document ---
Author Name Unknown Organization [facility] Hussein lt Address [address] [place] [address]- Care Team Providers Care High School Foreign Language Tutor Name Role Phone Casa FONG, Kay Villela Primary Care Physician En[place] [facility] [place] Date(s): 10/12/22 - 11/25/22 [facility] [address] [place] [address]- Attending Physician: Kay Cormier NP Referring Physician: Melody CONTEH, Diaz Lr Allergies, Adverse Reactions, Alerts Substance Reaction Severity [...] Given 1Result Comment: Covid 19 mRNA lot [id number] exp 05-01-2021 [facility] 2Result Comment: covid-19 mRNa lot [id number] exp 03-31-2021 [facility] 3Result Comment: Covid-19 mRNA lot [id number] exp 03-31-2021 [facility] 4Result Comment: [02/21/2018] [facility] [address] 842 01 Medications acetaminophen 325 mg oral [...] 08/09/21 11:27:00 EDT, Route to Pharmacy Electronically, [facility], Partial fill upon patient request if the prescr... Start Date: 08/09/21 Status: Ordered EPINEPHrine 0.3 mg injectable solution = 0.3 mg, Intramuscular, Once, PRN Anaphylactic Reaction, Use for anaphylactic reaction. may repeatif necessary, # 2 each, 0 Refills, Soft Stop, 01/10/21 12:01:00 EST, [facility]/pharmacy #8163, Partial fill upon patient request if the [...] Mouth, Daily, # 90 tablet, 1 Refills, [facility] STORE 12635, 160.02, cm, 10/02/21 10:20:00 EDT, Height, 137.4, [...] Refills, Maintenance, 08/09/21 11:28:00 EDT, EC Capsule, [facility], Partial fill upon patient request if the prescription is for a schedule II opioid drug., 160.02, cm, ... Start Date: 08/09/21 Status: Ordered Trulicity Pen 1.5 mg/0.5 mL subcutaneous solution See Instructions, INJECT 0.5ML SUBCUTANEOUSLY EVERY WEEK. ROTATE INFECTION SITES., # 2 Unknown, 6 Refills, Maintenance, 08/17/22 13:33:00 EDT, [facility] STORE 50471, 160.02, cm, 10/02/21 10:20:00 EDT, Height, 137.4, [...] o user in household: No entered on: 3/23/18 Sex Patient Care team information Care Team Personnel Name: Ivy Pardo RN Position: S RN Member Role: Primary Care Nurse Name: Kay Cormier NP Position: [facility] PCO Associate Professional Member Role: PCP Address: Address: [address] [place] [id number]- Name: Marilyn Razo RN Position: S RN Member Role: Primary Care Nurse Name: Shazia Hughes RN Position: [facility] RN Member Role: Primary Care Nurse Care Team Related Persons Name: FAVIOLA FINA Address: [address] [place] [address] Name: JAMA MALONE Address: home [address] [place] [address] Name: KEYON WHITE
--- OUTSIDE RECORDS SUMMARY | 2023-06-28 00:49 | XMS_ITS | Continuity of Care Document ---
Author Name Unknown Organization [facility] Address Unknown Care Team Providers Care Estate Tax Examiner Name Role Phone James FONG, Emma Oreilly Primary Care Physician [phone] Encounter [facility] [place] Date(s): 08/23/21 - 08/30/21 [facility] Attending Physician: Lorrie Mcgowan RD Allergies, Adverse [...] Given 1Result Comment: Covid 19 mRNA lot [id number] exp 05-01-2021 [facility] 2Result Comment: covid-19 mRNa lot [id number] exp 03-31-2021 [facility] 3Result Comment: Covid-19 mRNA lot [id number] exp 03-31-2021 [facility] 4Result Comment: [02/21/2018] [facility] 36[address] 842 01 Medications acetaminophen 325 mg oral [...] 08/09/21 11:27:00 EDT, Route to Pharmacy Electronically, [facility], Partial fill upon patient request if the prescr... Start Date: 08/09/21 Status: Ordered EPINEPHrine 0.3 mg injectable solution = 0.3 mg, Intramuscular, Once, PRN Anaphylactic Reaction, Use for anaphylactic reaction. may repeatif necessary, # 2 each, 0 Refills, Soft Stop, 01/10/21 12:01:00 EST, [facility]/pharmacy #2519, Partial fill upon patient request if the [...] Mouth, Daily, # 30 tablet, 5 Refills, [facility] STORE 54156, 160.02, cm, 08/09/21 4:06:00 EDT, Height, 137.4, [...] Refills, Maintenance, 08/09/21 11:28:00 EDT, EC Capsule, [facility], Partial fill upon patient request if the prescription is for a schedule II opioid drug., 160.02, cm, ... Start Date: 08/09/21 Status: Ordered Trulicity Pen 1.5 mg/0.5 mL subcutaneous solution See Instructions, 0.5 ML SUBCUTANEOUS INJECTION EVERY WEEK,INSTR:ROTATE INJECTION SITES, # 2 Unknown, 6 Refills, 07/29/21 14:27:00 EDT, [facility]/pharmacy #2339, 165, cm, 07/27/21 12:33:00 [...] oldest [Reference Range]: 1 Height 160.02 cm (08/23/21 9:52 AM) Weight 127.8 kg (08/23/21 9:52 AM) Body Mass Index [18.5-24.99] 49.91 *>HHI* (08/23/21 9:52 AM) Social History Social History Type Response Smoking Status Never smoker; Tobacc o user in household: No entered on: 02/21/18 Sex
--- OUTSIDE RECORDS SUMMARY | 2023-06-28 00:49 | XMS_ITS | Continuity of Care Document ---
Author Name Unknown Organization [facility] Address Unknown Care Team Providers Care High School Coach Name Role Phone Emma Ramirez NP Primary Care Physician Encounter [facility] [place] Date(s): 10/02/21 - 10/09/21 [facility] Encounter Diagnosis Morbid obesity with BMI of 45.0-49.9, adult(Discharge Diagnosis) - 10/02/21 S/P laparoscopic sleeve gastrectomy(Discharge Diagnosis) - 10/02/21 Attending Physician: Eduardo Chang Referring Physician: Emma [...] Given 1Result Comment: Covid 19 mRNA lot [id number] exp 05-01-2021 [facility] 2Result Comment: covid-19 mRNa lot [id number] exp 03-31-2021 [facility] 3Result Comment: Covid-19 mRNA lot [id number] exp 03-31-2021 [facility] 4Result Comment: [02/21/2018] [facility] [address] 842 01 Medications acetaminophen 325 mg oral [...] 08/09/21 11:27:00 EDT, Route to Pharmacy Electronically, [facility], Partial fill upon patient request if the prescr... Start Date: 08/09/21 Status: Ordered EPINEPHrine 0.3 mg injectable solution = 0.3 mg, Intramuscular, Once, PRN Anaphylactic Reaction, Use for anaphylactic reaction. may repeatif necessary, # 2 each, 0 Refills, Soft Stop, 01/10/21 12:01:00 EST, [facility]/pharmacy #5597, Partial fill upon patient request if the [...] Mouth, Daily, # 30 tablet, 5 Refills, [facility] STORE 41721, 160.02, cm, 08/09/21 4:06:00 EDT, Height, 137.4, [...] Refills, Maintenance, 08/09/21 11:28:00 EDT, EC Capsule, [facility], Partial fill upon patient request if the prescription is for a schedule II opioid drug., 160.02, cm, ... Start Date: 08/09/21 Status: Ordered Trulicity Pen 1.5 mg/0.5 mL subcutaneous solution See Instructions, 0.5 ML SUBCUTANEOUS INJECTION EVERY WEEK,INSTR:ROTATE INJECTION SITES, # 2 Unknown, 6 Refills, 07/29/21 14:27:00 EDT, [facility]/pharmacy #2339, 165, cm, 07/27/21 12:33:00 [...] Effective Dates Health Status Clinical Service Informant Morbid obesity with BMI of 45.0-49.9, adult Discharge Diagnosis 10/02/21 S/P laparoscopic sleeve gastrectomy Discharge Diagnosis 10/02/21 Vital Signs Most recent to oldest [Reference Range]: 1 Height 160.02 cm (10/02/21 10:20 AM) Weight 121.4 kg (10/02/21 10:20 AM) Pulse Rate [55-90 bpm] 59 bpm (10/02/21 10:20 AM) Body Mass Index [18.5-24.99] 47.41 *>HHI* (10/02/21 10:20 AM) Blood Pressure [90-138/55-84 mm Hg] 105/ 73mm Hg (10/02/21 10:20 AM) Temperature [96.8-100.4 DegF] 96.5 DegF *L* (10/02/21 10:20 AM) Blood pressure sites Arm, left (10/02/21 10:20 AM) Temperature Route Temporal (10/02/21 10:20 AM) Weight Obtained Via Standing scale (10/02/21 10:20 AM) Social History Social History Type Response Smoking Status Never smoker; Tobacc o user in household: No entered on: 02/21/18 Sex
--- OUTSIDE RECORDS SUMMARY | 2023-06-28 00:49 | XMS_ITS | Continuity of Care Document ---
Author Name Unknown Organization [facility] Address [address] [place] [address]- Care Team Providers Care Tube Test Technician Name Role Phone James FONG, Emma Oreilly Primary Care Physician [phone] Encounter [facility] [place] Date(s): 08/15/21 - 09/14/21 [facility] [address] [place] [address]- Allergies, Adverse Reactions, Alerts Substance Reaction Severity [...] Given 1Result Comment: Covid 19 mRNA lot [id number] exp 05-01-2021 [facility] 2Result Comment: covid-19 mRNa lot [id number] exp 03-31-2021 [facility] 3Result Comment: Covid-19 mRNA lot [id number] exp 03-31-2021 [facility] 4Result Comment: [02/21/2018] [facility] 735[address] 842 01 Medications acetaminophen 325 mg oral [...] 08/09/21 11:27:00 EDT, Route to Pharmacy Electronically, [facility], Partial fill upon patient request if the prescr... Start Date: 08/09/21 Status: Ordered EPINEPHrine 0.3 mg injectable solution = 0.3 mg, Intramuscular, Once, PRN Anaphylactic Reaction, Use for anaphylactic reaction. may repeatif necessary, # 2 each, 0 Refills, Soft Stop, 01/10/21 12:01:00 EST, [facility]/pharmacy #2337, Partial fill upon patient request if the [...] Mouth, Daily, # 30 tablet, 5 Refills, [facility] STORE 20013, 160.02, cm, 08/09/21 4:06:00 EDT, Height, 137.4, [...] Refills, Maintenance, 08/09/21 11:28:00 EDT, EC Capsule, [facility], Partial fill upon patient request if the prescription is for a schedule II opioid drug., 160.02, cm, ... Start Date: 08/09/21 Status: Ordered Trulicity Pen 1.5 mg/0.5 mL subcutaneous solution See Instructions, 0.5 ML SUBCUTANEOUS INJECTION EVERY WEEK,INSTR:ROTATE INJECTION SITES, # 2 Unknown, 6 Refills, 07/29/21 14:27:00 EDT, [facility]/pharmacy #2339, 165, cm, 07/27/21 12:33:00 EDT, Height, [...]
--- OUTSIDE RECORDS SUMMARY | 2023-06-28 00:49 | XMS_ITS | Continuity of Care Document ---
Author Name Unknown Organization [facility] Address [address] [place] [address]- Care Team Providers Care Short Goods Drier Name Role Phone James FONG, Emma Oreilly Primary Care Physician [phone] Encounter [facility] Date(s): 02/15/20 - 02/25/20 [facility] [address] [place] [address]- [facility] Attending Physician: Candy Jones Admitting Physician: Candy Jones Referring Physician: AdmtrCandy Allergies, Adverse Reactions, Alerts No Known Medication Allergies Immunizations Given and Recorded Vaccine Date Status Refusal Reason tetanus/diphtheria/pertussis, acel(Tdap) 1 02/21/18 Given 1Result Comment: [02/21/2018] [facility] [id number] 842 01 Medications aspirin 81 mg oral [...] tablet, 0 Refills, Maintenance, 02/15/20 16:07:00 EDT, [facility]/pharmacy #4471, 161.1, cm, 02/15/20 14:50:00 [...] anemia(Confirmed) Active Morbid obesity(Confirmed) Active Prediabetes(Confirmed) Active Social History Social History Type Response Smoking Status Never smoker; Tobacc o user in household: No entered on: 02/21/18 Sex
--- OUTSIDE RECORDS SUMMARY | 2023-06-28 00:49 | XMS_ITS | Continuity of Care Document ---
Author Name Unknown Organization [facility] Address [address] [place] [address] [address] [place] [address]- Care Team Providers Care Radiation Control Health Physicist Name Role Phone James FONG, Emma Oreilly Primary Care Physician [phone] [place] [facility] [place] 03/29/21 - 04/05/[address] [place] [address]- Attending Physician: Lorrie Mcgowan RD Allergies, Adverse [...] Given 1Result Comment: Covid 19 mRNA lot [id number] exp 05-01-2021 [facility] 2Result Comment: covid-19 mRNa lot [id number] exp 03-31-2021 [facility] 3Result Comment: Covid-19 mRNA lot [id number] exp 03-31-2021 [facility] 4Result Comment: [02/21/2018] [facility] [id number] 842 01 Medications aspirin 81 mg oral [...] mL, 5 Refills, Maintenance, 06/14/20 9:36:00 EDT, [facility]/pharmacy #2339, 161.1, cm, 05/30/20 8:03:00 EDT,Height, 149.3, kg, 04/27/20 2:13:00 EDT, Dry Weight Start Date: 06/14/20 Status: Ordered EPINEPHrine 0.3 mg injectable solution = 0.3 mg, Intramuscular, Once, PRN Anaphylactic Reaction, Use for anaphylactic reaction. may repeatif necessary, # 2 each, 0 Refills, Soft Stop, 01/10/21 12:01:00 EST, [facility]/pharmacy #2339, Partial fill upon patient request if [...] 0 Refills, Maintenance, 03/21/21 13:09:00 EDT, Tablet, [facility]/pharmacy #2339, Partial fill upon patient request if the prescription is for a schedule II opioid drug., 161.1, cm, ... Start Date: 03/21/21 Status: Ordered metFORMIN 1000 mg oral tablet 1 tablet = 1,000 mg, By Mouth, 2 times a day, # 180 tablet, 3 Refills, Maintenance, 10/06/20 11:00:00 EST, [facility]/pharmacy #2339, 161.1, cm, 10/06/20 10:55:00 EST, Height, [...] 2 Unknown, 6 Refills, Maintenance, [facility], 161.1, cm, 10/06/20 10:55:00 EST, Height, 149.3, [...]
--- OUTSIDE RECORDS SUMMARY | 2023-06-28 00:49 | XMS_ITS | Continuity of Care Document ---
Author Name Unknown Organization [facility] lt Address [address] [place] [address]- Care Team Providers Care Soa Engineer Name Role Phone James FONG, Emma Oreilly Primary Care Physician Encounter [facility] Date(s): 06/24/20 - 07/01/20 [facility] Adult [address] [place] [address]- [facility] Encounter Diagnosis Diabetes mellitus type II, uncontrolled(Discharge Diagnosis) - 06/24/20 Diarrhea(Discharge Diagnosis) - 06/24/20 Attending Physician: Brenda FONG, Judy Nolasco Allergies, Adverse Reactions, Alerts No Known Medication Allergies Immunizations Given and Recorded Vaccine Date Status Refusal Reason tetanus/diphtheria/pertussis, acel(Tdap) 1 02/21/18 Given 1Result Comment: [02/21/2018] [facility] [id number] 842 01 Medications aspirin 81 mg oral [...] 5 Refills, Maintenance, 06/14/20 9:36:00 EDT, [facility], 161.1, cm, 05/30/20 8:03:00 EDT,Height, 149.3, kg, 04/27/20 2:13:00 EDT, Dry Weight Start Date: 06/14/20 Status: Ordered cholecalciferol 50,000 intl units oral capsule 1 capsule = 50,000 International_Units, By Mouth, Every week, # 5 capsule, 0 Refills, Maintenance, 02/15/20 15:08:00 EDT, Capsule, [facility]/pharmacy #4471, 161.1, cm, 02/15/20 14:50:00 EDT, Height, 141, kg, 04/19/19 4:24:00 EDT, Dry Weight Start Date: 02/15/20 Status: Ordered ferrous sulfate 325 mg oral tablet See Instructions, 1 tablet By Mouth every other day, # 45 tablet, 3 Refills, Maintenance, 06/14/20 14:43:00 EDT, [facility]/pharmacy #2339, 161.1, cm, 05/30/20 8:03:00 [...] tablet, 5 Refills, Maintenance, 05/06/20 10:27:00 EDT, [facility]/pharmacy #2339, 161.1, cm, 04/28/20 11:33:00 EDT, Height, 149.3, kg, 04/27/20 2:13:00 EDT, D... Start Date: 05/06/20 Status: Ordered sertraline 50 mg oral tablet See Instructions, 1/2 tablet By Mouth Daily for 1 week then 1 tablet thereafter, # 30 tablet, 1 Refills, Maintenance, 04/28/20 14:27:00 EDT, [facility]/pharmacy #2339, 161.1, cm, 04/28/20 11:33:00 EDT, Height, 149.3, kg, 04/27/20 2:13:00 EDT, Dry Weight Start Date: 04/28/20 Status: Ordered terbinafine 1% topical cream 1 application, Topically, 2 times a day, # 15 Gm, 0 Refills, Maintenance, 04/18/20 15:15:00 EDT, Cream, [facility]/pharmacy #2339, 1 application Topically 2 [...] 0 Refills, Maintenance, 06/20/20 10:50:00 EDT, Solution, [facility]/pharmacy #2339, 161.1, cm, 06/20/20 8:16:00 EDT,... Start Date: 06/20/20 Status: Ordered Problem List Condition Effective Dates Status Health Status Inform ant Chest pain(Confirmed) Active Depression(Confirmed) Active Iron deficiency anemia(Confirmed) Active Morbid obesity(Confirmed) Active Diabetes mellitus type II, uncontrolled(Confirmed) Active Diagnosis Diagnosis Type Effective Dates Health Status Clinical Service Informant Diabetes mellitus type II, uncontrolled Discharge Diagnosis 06/24/20 Diarrhea Discharge Diagnosis 06/24/20 Social History Social History Type Response Smoking Status Never smoker; Tobacc o user in household: No entered on: 02/21/18 Sex
--- OUTSIDE RECORDS SUMMARY | 2023-06-28 00:49 | XMS_ITS | Continuity of Care Document ---
Author Name Unknown Organization [facility] Address [address] [place] [address] [address] [place] [address]- Care Team Providers Care Hardwood Finisher Name Role Phone Emma Ramirez NP Primary Care Physician [place] [facility] [place] Date(s[place] 08/31/20 - 09/07/[address] [place] [address]- [facility] Attending Physician: Lorrie Mcgowan RD Referring Physician: Emma Ramirez NP Allergies, Adverse Reactions, Alerts No Known Medication Allergies Immunizations Given and Recorded Vaccine Date Status Refusal Reason tetanus/diphtheria/pertussis, acel(Tdap) 1 02/21/18 Given 1Result Comment: [02/21/2018] [facility] [id number] 842 01 Medications aspirin 81 mg oral [...] 0 Refills, Maintenance, 02/15/20 15:08:00 EDT, Capsule, [facility]/pharmacy #4471, 161.1, cm, 02/15/20 14:50:00 EDT, Height, 141, kg, 04/19/19 4:24:00 EDT, Dry Weight Start Date: 02/15/20 Status: Ordered ferrous sulfate 325 mg oral tablet See Instructions, 1 tablet By Mouth every other day, # 45 tablet, 3 Refills, Maintenance, 06/14/20 14:43:00 EDT, [facility]/pharmacy #2339, 161.1, cm, 05/30/20 8:03:00 EDT, Height, [...]
--- OUTSIDE RECORDS SUMMARY | 2023-06-28 00:49 | XMS_ITS | Continuity of Care Document ---
Author Name Unknown Organization [facility] Hussein Address [address] [place] [address]- Care Team Providers Care School Curriculum Developer Name Role Phone James FONG, Emma Oreilly Primary Care Physician [place] [facility] [place]20 - 10/01/20 [facility] Adult [address] [place] [address]- [facility] Allergies, Adverse Reactions, Alerts No Known Medication Allergies Immunizations Given and Recorded Vaccine Date Status Refusal Reason tetanus/diphtheria/pertussis, acel(Tdap) 1 02/21/18 Given 1Result Comment: [02/21/2018] [facility] [id number] 842 01 Medications aspirin 81 mg oral [...] Refills, Maintenance, 06/14/20 14:43:00 EDT, [facility]/pharmacy #2339, 161.1, cm, 05/30/20 8:03:00 EDT, [...] Maintenance, 04/18/20 15:15:00 EDT, Cream, [facility]/pharmacy #2339, 1 application Topically 2 times a day, 161.1, cm, 02/15/20 14:50:00 EDT, Height, 141, kg, 04/19/19 4:24:00 EDT, Dry Weight Start Date: 04/18/20 Status: Ordered Trulicity Pen 0.75 mg/0.5 mL subcutaneous solution = 0.75 mg, Subcutaneous Injection, Every 7 days, labs needed, # 4 each, 1 Refills, Maintenance, 08/31/20 9:35:00 EDT, [facility]/pharmacy #2339, 161.1, cm, 07/21/20 10:06:00 EDT, [...]
--- OUTSIDE RECORDS SUMMARY | 2023-06-28 00:49 | XMS_ITS | Continuity of Care Document ---
Author Name Unknown Organization [facility] Hussein Address [address] [place] [address]- Care Team Providers Care Motor Racer Name Role Phone James FONG, Emma Oreilly Primary Care Physician [phone] [place] [facility] [place]18[place] 04/25/20 [facility] Adult [address] [place] [address]- [facility] Encounter Diagnosis Skin infection(Discharge Diagnosis) - 04/18/20 Attending Physician: Kinga Templeton NP Allergies, Adverse Reactions, Alerts No Known Medication Allergies Immunizations Given and Recorded Vaccine Date Status Refusal Reason tetanus/diphtheria/pertussis, acel(Tdap) 1 02/21/18 Given 1Result Comment: [02/21/2018] [facility] [id number] 842 01 Medications aspirin 81 mg oral tablet 1 tablet = 81 mg, By Mouth, Daily, # 90 tablet, 0 Refills, Maintenance, 02/13/19 11:23:57 EDT, Tablet Start Date: 02/13/19 Status: Ordered Bactrim DS 800 mg-160 mg oral tablet 1 tablet, By Mouth, 2 times a day, for 10 days, # 20 tablet, 0 Refills, Acute 04/28/20 15:14:00 EDT, 04/18/20 15:14:00 EDT, Tablet, [facility], 1 tablet By Mouth 2 times a day,x10 days, 161.1, cm, 02/15/20 14:50:00 EDT, Height, 141, kg, 04/19/... Start Date: 04/18/20 Stop Date: 04/28/20 Status: [...] 0 Refills, Maintenance, 04/11/20 16:08:00 EDT, Tablet, [facility]/pharmacy #2339, 161.1, cm, 02/15/20 14:50:00 EDT, Height, 141, kg, 04/19/19 4:24:00 EDT, Dry Weight Start Date: 04/11/20 Status: Ordered metFORMIN 1000 mg oral tablet 1 tablet = 1,000 mg, By Mouth, 2 times a day, This is correct dose. 2000mg total daily dose., # 60 tablet, 0 Refills, Maintenance, 02/15/20 16:07:00 EDT, [facility]/pharmacy #4471, 161.1, cm, 02/15/20 [...] Dates Health Status Cl inical Service Informant Skin infection Discharge Diagnosis 04/18/20 Social History Social History Type Response Smoking Status Never smoker; Tobacc o user in household: No entered on: 02/21/18 Sex
--- OUTSIDE RECORDS SUMMARY | 2023-06-28 00:49 | XMS_ITS | Continuity of Care Document ---
Author Name Unknown Organization [facility] Address Unknown Care Team Providers Care Bottoming Machine Operator Name Role Phone Casa FONG, Kay Villela Primary Care Physician [phone] Encounter [facility] [place] Date(s): 12/11/21 - 01/10/22 [facility] Attending Physician: Admtr, [id number] Admitting [...] Given 1Result Comment: Covid 19 mRNA lot [id number] exp 05-01-2021 [facility] 2Result Comment: covid-19 mRNa lot [id number] exp 03-31-2021 [facility] 3Result Comment: Covid-19 mRNA lot [id number] exp 03-31-2021 [facility] 4Result Comment: [02/21/2018] [facility] [id number] 842 01 Medications acetaminophen 325 mg oral [...] 08/09/21 11:27:00 EDT, Route to Pharmacy Electronically, [facility], Partial fill upon patient request if the prescr... Start Date: 08/09/21 Status: Ordered EPINEPHrine 0.3 mg injectable solution = 0.3 mg, Intramuscular, Once, PRN Anaphylactic Reaction, Use for anaphylactic reaction. may repeatif necessary, # 2 each, 0 Refills, Soft Stop, 01/10/21 12:01:00 EST, [facility]/pharmacy #5486, Partial fill upon patient request if the [...] Mouth, Daily, # 30 tablet, 5 Refills, [facility], 160.02, cm, 08/09/21 4:06:00 EDT, Height, 137.4, [...] Refills, Maintenance, 08/09/21 11:28:00 EDT, EC Capsule, [facility], Partial fill upon patient request if the prescription is for a schedule II opioid drug., 160.02, cm, ... Start Date: 08/09/21 Status: Ordered Trulicity Pen 1.5 mg/0.5 mL subcutaneous solution See Instructions, 0.5 ML SUBCUTANEOUS INJECTION EVERY WEEK,INSTR:ROTATE INJECTION SITES, # 2 Unknown, 6 Refills, 07/29/21 14:27:00 EDT, [facility]/pharmacy #2339, 165, cm, 07/27/21 12:33:00 EDT, [...]
--- OUTSIDE RECORDS SUMMARY | 2023-06-28 00:49 | XMS_ITS | Continuity of Care Document ---
Author Name Unknown Organization [facility] Address [address] [place] [address] [address] [place] [address]- Care Team Providers Care Biomedical Technician Name Role Phone James FONG, Emma Oreilly Primary Care Physician [place] [facility] [place] - 06/22/[address] [place] [address]- Attending Physician: Lorrie Mcgowan RD Allergies, Adverse [...] Given 1Result Comment: Covid 19 mRNA lot [id number] exp 05-01-2021 [facility] 2Result Comment: covid-19 mRNa lot [id number] exp 03-31-2021 [facility] 3Result Comment: Covid-19 mRNA lot [id number] exp 03-31-2021 [facility] 4Result Comment: [02/21/2018] [facility] [address] 842 01 Medications aspirin 81 mg oral [...] mL, 5 Refills, Maintenance, 06/14/20 9:36:00 EDT, [facility]/pharmacy #2339, 161.1, cm, 05/30/20 8:03:00 EDT,Height, 149.3, kg, 04/27/20 2:13:00 EDT, Dry Weight Start Date: 06/14/20 Status: Ordered EPINEPHrine 0.3 mg injectable solution = 0.3 mg, Intramuscular, Once, PRN Anaphylactic Reaction, Use for anaphylactic reaction. may repeatif necessary, # 2 each, 0 Refills, Soft Stop, 01/10/21 12:01:00 EST, [facility]/pharmacy #2339, Partial fill upon patient request if [...] 0 Refills, Maintenance, 03/21/21 13:09:00 EDT, Tablet, [facility]/pharmacy #2339, Partial fill upon patient request if the prescription is for a schedule II opioid drug., 161.1, cm, ... Start Date: 03/21/21 Status: Ordered metFORMIN 1000 mg oral tablet 1 tablet = 1,000 mg, By Mouth, 2 times a day, # 180 tablet, 3 Refills, Maintenance, 10/06/20 11:00:00 EST, [facility]/pharmacy #2339, 161.1, cm, 10/06/20 10:55:00 EST, Height, [...] 2 Unknown, 6 Refills, Maintenance, [facility], 161.1, cm, 10/06/20 10:55:00 EST, Height, 149.3, [...]
--- OUTSIDE RECORDS SUMMARY | 2023-06-28 00:49 | XMS_ITS | Continuity of Care Document ---
Author Name Unknown Organization [facility] Address [address] [place] [address]- Care Team Providers Care Clinical Application Specialist Name Role Phone Kay Cormier NP Primary Care Physician Encounter [facility] Date(s): 08/16/22 - 09/15/22 [facility] [address] [place] [address]- Allergies, Adverse Reactions, Alerts Substance Reaction Severity [...] Given 1Result Comment: Covid 19 mRNA lot [id number] exp 05-01-2021 [facility] 2Result Comment: covid-19 mRNa lot [id number] exp 03-31-2021 [facility] 3Result Comment: Covid-19 mRNA lot [id number] exp 03-31-2021 [facility] 4Result Comment: [02/21/2018] [facility] [id number] 842 01 Medications acetaminophen 325 mg oral [...] 08/09/21 11:27:00 EDT, Route to Pharmacy Electronically, [facility], Partial fill upon patient request if the prescr... Start Date: 08/09/21 Status: Ordered EPINEPHrine 0.3 mg injectable solution = 0.3 mg, Intramuscular, Once, PRN Anaphylactic Reaction, Use for anaphylactic reaction. may repeatif necessary, # 2 each, 0 Refills, Soft Stop, 01/10/21 12:01:00 EST, [facility]/pharmacy #0123, Partial fill upon patient request if the [...] Mouth, Daily, # 90 tablet, 1 Refills, [facility], 160.02, cm, 10/02/21 10:20:00 EDT, Height, 137.4, [...] Refills, Maintenance, 08/09/21 11:28:00 EDT, EC Capsule, [facility], Partial fill upon patient request if the prescription is for a schedule II opioid drug., 160.02, cm, ... Start Date: 08/09/21 Status: Ordered Trulicity Pen 1.5 mg/0.5 mL subcutaneous solution See Instructions, INJECT 0.5ML SUBCUTANEOUSLY EVERY WEEK. ROTATE INFECTION SITES., # 2 Unknown, 6 Refills, Maintenance, 08/17/22 13:33:00 EDT, [facility], 160.02, cm, 10/02/21 10:20:00 EDT, Height, 137.4, [...] Personnel Name: Kay Cormier NP Address: Address: [address] [place] [address] [place] [address]-
--- OUTSIDE RECORDS SUMMARY | 2023-06-28 00:49 | XMS_ITS | Continuity of Care Document ---
Author Name Unknown Organization [facility] Address [address] [place] [address] [address] [place] [address]- Care Team Providers Care Batching Operator Name Role Phone James FONG, Emma Oreilly Primary Care Physician [phone] Encounter [facility] [place] Date(s): 02/10/21 - 02/17/[address] [place] [address]- Attending Physician: Lorrie Mcgowan RD Referring Physician: [...] Given 1Result Comment: Covid 19 mRNA lot [id number] exp 05-01-2021 [facility] 2Result Comment: covid-19 mRNa lot [id number] exp 03-31-2021 [facility] 3Result Comment: Covid-19 mRNA lot [id number] exp 03-31-2021 [facility] 4Result Comment: [02/21/2018] [facility] [address] 842 01 Medications aspirin 81 mg oral [...] 5 Refills, Maintenance, 06/14/20 9:36:00 EDT, [facility]/pharmacy #2339, 161.1, cm, 05/30/20 8:03:00 EDT,Height, 149.3, kg, 04/27/20 2:13:00 EDT, Dry Weight Start Date: 06/14/20 Status: Ordered EPINEPHrine 0.3 mg injectable solution = 0.3 mg, Intramuscular, Once, PRN Anaphylactic Reaction, Use for anaphylactic reaction. may repeatif necessary, # 2 each, 0 Refills, Soft Stop, 01/10/21 12:01:00 EST, [facility]/pharmacy #2339, Partial fill upon patient request if the prescription is for... Start Date: 01/10/21 Status: Ordered ferrous sulfate 325 mg oral tablet See Instructions, 1 tablet By Mouth every other day, # 45 tablet, 3 Refills, Maintenance, 06/14/20 14:43:00 EDT, [facility]/pharmacy #2339, 161.1, cm, 05/30/20 8:03:00 [...] 2 Refills, Maintenance, 12/07/20 9:42:00 EST, Tablet, [facility]/pharmacy #2339, Partial fill upon patient request if the prescription is for a schedule II opioid drug., 161.1, cm, 10/06/20 10:55:00 EST, [facility]... Start Date: 12/07/20 Status: Ordered metFORMIN 1000 mg oral tablet 1 tablet = 1,000 mg, By Mouth, 2 times a day, # 180 tablet, 3 Refills, Maintenance, 10/06/20 11:00:00 EST, [facility]/pharmacy #2339, 161.1, cm, 10/06/20 10:55:00 EST, [...] tablet, 1 Refills, Maintenance, 07/02/20 9:23:00 EDT, [facility]/pharmacy #2339, 161.1, cm, 06/20/20 8:16:00 EDT, Height, 149.3, kg, 04/27/20 2:13:00 EDT, Dry Weight Start Date: 07/02/20 Status: Ordered terbinafine 1% topical cream 1 application, Topically, 2 times a day, # 15 Gm, 0 Refills, Maintenance, 04/18/20 15:15:00 EDT, Cream, [facility]/pharmacy #2339, 1 application Topically 2 times a day, 161.1, cm, 02/15/20 14:50:00 EDT, Height, 141, kg, 04/19/19 4:24:00 EDT, Dry Weight Start Date: 04/18/20 Status: Ordered Trulicity Pen 1.5 mg/0.5 mL subcutaneous solution See Instructions, 0.5 ML SUBCUTANEOUS INJECTION EVERY WEEK,INSTR:ROTATE INJECTION SITES, # 2 Unknown, 6 Refills, Maintenance, [facility], 161.1, cm, 10/06/20 10:55:00 EST, Height, 149.3, [...]
--- OUTSIDE RECORDS SUMMARY | 2023-06-28 00:49 | XMS_ITS | Continuity of Care Document ---
Author Name Unknown Organization [facility] Address [address] [place] [address]- Care Team Providers Care Butter Fat Tester Name Role Phone James FONG, Emma Oreilly Primary Care Physician [phone] [place] [facility] [place] [facility] [place]20 - 06/02/20 [facility] Adult [address] [place] [address]- [facility] Encounter Diagnosis Diabetes mellitus type II, uncontrolled(Discharge Diagnosis) - 05/26/20 Morbid obesity(Discharge Diagnosis) - 05/26/20 Chest pain(Discharge Diagnosis) - 05/26/20 Attending Physician: Emma Ramirez NP Allergies, Adverse Reactions, Alerts No Known Medication Allergies Immunizations Given and Recorded Vaccine Date Status Refusal Reason tetanus/diphtheria/pertussis, acel(Tdap) 1 02/21/18 Given 1Result Comment: [02/21/2018] [facility] [id number] 842 01 Medications aspirin 81 mg oral [...] Dry Weight Start Date: 02/15/20 Status: Ordered Freestyle Lite Lancets See Instructions, [...] tablet, 5 Refills, Maintenance, 05/06/20 10:27:00 EDT, [facility]/pharmacy #2339, 161.1, cm, 04/28/20 11:33:00 EDT, Height, 149.3, kg, 04/27/20 2:13:00 EDT, D... Start Date: 05/06/20 Status: Ordered sertraline 50 mg oral tablet See Instructions, 1/2 tablet By Mouth Daily for 1 week then 1 tablet thereafter, # 30 tablet, 1 Refills, Maintenance, 04/28/20 14:27:00 EDT, [facility], 161.1, cm, 04/28/20 11:33:00 [...] Dry Weight Start Date: 04/18/20 Status: Ordered Victoza 18 mg/3 mL subcutaneous solution See Instructions, 0.6 mg Subcutaneous Injection Daily for 1 week then 1.2mg daily., # 6 mL, 0 Refills, Maintenance, 05/03/20 13:38:00 EDT, Solution, [facility], 161.1, cm, 04/28/20 11:33:00 EDT, Height, 149.3, kg, 04/27/20 2:13:00 EDT, Dry Weight Start Date: 05/03/20 Status: Ordered Victoza 18 mg/3 mL subcutaneous solution See Instructions, 0.6mg Subcutaneous Injection Daily for 1 week then 1.2 mg, # 6 mL, 0 Refills, Maintenance, 05/03/20 13:47:00 EDT, Solution, [facility], 161.1, cm, 04/28/20 11:33:00 EDT, Height, 149.3, kg, 04/27/20 2:13:00 EDT, Dry Weight Start Date: 05/03/20 Status: Ordered Problem List Condition Effective Dates Status Health Status Inform ant Chest pain(Confirmed) Active Depression(Confirmed) Active Iron deficiency anemia(Confirmed) Active Morbid obesity(Confirmed) Active Diabetes mellitus type II, uncontrolled(Confirmed) Active Diagnosis Diagnosis Type Effective Dates Health Status Clinical Service Informant Diabetes mellitus type II, uncontrolled Discharge Diagnosis 05/26/20 Morbid obesity Discharge Diagnosis 05/26/20 Chest pain Discharge Diagnosis 05/26/20 Social History Social History Type Response Smoking Status Never smoker; Tobacc o user in household: No entered on: 02/21/18 Sex
--- OUTSIDE RECORDS SUMMARY | 2023-06-28 00:49 | XMS_ITS | Continuity of Care Document ---
Author Name Unknown Organization [facility] ter Address [address] [place] [id number]- Care Team Providers Care Engineering Job Titles Name Role Phone Emma Ramirez NP Primary Care Physician Encounter [facility] [place] Date(s): 01/06/21 - 01/07/[address] [address]- Discharge Disposition: A-D/C Walkout Attending Physician: Not on Staff, Attending MD Admitting Physician: Not on Staff, Admitting MD Referring Physician: Not on Staff, Referring MD Allergies, Adverse Reactions, Alerts No Known Medication Allergies Immunizations Given and Recorded Vaccine Date Status Refusal Reason SARS-CoV-2 (COVID-19) mRNA BNT-162b2 vac 1 01/01/21 Recorded SARS-CoV-2 (COVID-19) mRNA BNT-162b2 vac 2 12/11/20 Recorded SARS-CoV-2 (COVID-19) mRNA BNT-162b2 vac 3 12/11/20 Recorded tetanus/diphtheria/pertussis, acel(Tdap) 4 02/21/18 Given 1Result Comment: Covid 19 mRNA lot [id number] exp 05-01-2021 [facility] 2Result Comment: covid-19 mRNa lot [id number] exp 03-31-2021 [facility] 3Result Comment: Covid-19 mRNA lot [id number] exp 03-31-2021 [facility] 4Result Comment: [02/21/2018] formerly [facility] [id number] 842 01 Medications amoxicillin 500 mg oral tablet 2 tablet = 1,000 mg, By Mouth, 2 times a day, for 14 days, # 56 tablet, 0 Refills, Acute 01/13/21 15:19:00 EST, 12/30/20 15:19:00 EST, Tablet, [id number], Partial fill upon patient request ifthe prescription [...] mL, 5 Refills, Maintenance, 06/14/20 9:36:00 EDT, [facility]/pharmacy #2339, 161.1, cm, 05/30/20 8:03:00 EDT,Height, 149.3, kg, 04/27/20 2:13:00 EDT, Dry Weight Start Date: 06/14/20 Status: Ordered clarithromycin 500 mg oral tablet 1 tablet = 500 mg, By Mouth, Every 12 hours, for 14 days, # 28 tablet, 0 Refills, Acute 01/13/21 15:19:00 EST, 12/30/20 15:19:00 EST, Tablet, [facility]/pharmacy #2339, Partial fill upon patient request if [...] 2 Refills, Maintenance, 12/07/20 9:42:00 EST, Tablet, [facility]/pharmacy #2339, Partial fill upon patient request if [...] tablet, 1 Refills, Maintenance, 07/02/20 9:23:00 EDT, [facility]/pharmacy #2339, 161.1, cm, 06/20/20 8:16:00 EDT, Height, 149.3, kg, 04/27/20 2:13:00 EDT, Dry Weight Start Date: 07/02/20 Status: Ordered terbinafine 1% topical cream 1 application, Topically, 2 times a day, # 15 Gm, 0 Refills, Maintenance, 04/18/20 15:15:00 EDT, Cream, [facility]/pharmacy #2339, 1 application Topically 2 times a day, 161.1, cm, 02/15/20 14:50:00 EDT, Height, 141, kg, 04/19/19 4:24:00 EDT, Dry Weight Start Date: 04/18/20 Status: Ordered Trulicity Pen 1.5 mg/0.5 mL subcutaneous solution See Instructions, 0.5 ML SUBCUTANEOUS INJECTION EVERY WEEK,INSTR:ROTATE INJECTION SITES, # 2 Unknown, 6 Refills, Maintenance, [facility] ST[facility] [id number], 161.1, cm, 10/06/20 10:55:00 EST, Height, 149.3, kg, 04/27/20 2:13:00 EDT, Dry Weight Start Date: 11/21/20 Status: Ordered Problem List Condition Effective Dates Status Health Status Inform ant Morbid obesity with BMI of 6 0.0-69.9, adult(Confirmed) Active Chest pain(Confirmed) Active Depression(Confirmed) Active Iron deficiency anemia(Confirmed) Active Diabetes mellitus type II, uncontrolled(Confirmed) Active Vital Signs Most recent to oldest [Reference Range]: 1 2 Oxygen Saturation [94-100 %] 98 % (01/07/21 12:31 AM) 100 % (01/06/21 11:38 PM) Pulse Rate [55-90 bpm] 77 bpm (01/07/21 12:31 AM) 70 bpm (01/06/21 11:38 PM) Blood Pressure [90-138/55-84 mm Hg] 125/ 79mm Hg (01/07/21 12:31 AM) Respiratory Rate [16-30 br/min] 18 br/mi n (01/07/21 12:31 AM) 20 br/min (01/06/21 11:38 PM) Temperature [96.8-100.4 DegF] 98.3 DegF (01/07/21 12:31 AM) Mode of Delivery (Oxygen) Room air (01/07/21 12:31 AM) Room air (01/06/21 11:38 PM) Blood pressure sites Arm, left (01/07/21 12:31 AM) Temperature Route Oral (01/07/21 12:31 AM) Social History Social History Type Response Smoking Status Never smoker; Tobacc o user in household: No entered on: 02/21/18 Sex
--- OUTSIDE RECORDS SUMMARY | 2023-06-28 00:49 | XMS_ITS | Continuity of Care Document ---
Author Name Unknown Organization [facility] Hussein Address [address] [place] [address]- Care Team Providers Care Shift Commander Name Role Phone Casa FONG, Kay Villela Primary Care Physician [phone] [place] [facility] [place] 10/05/22 - 11/04/22 [facility] [address] [place] [address]- Allergies, Adverse Reactions, Alerts Substance Reaction Severity [...] Given 1Result Comment: Covid 19 mRNA lot [id number] exp 05-01-2021 [facility] 2Result Comment: covid-19 mRNa lot [id number] exp 03-31-2021 [facility] 3Result Comment: Covid-19 mRNA lot [id number] exp 03-31-2021 [facility] 4Result Comment: [02/21/2018] [facility] [id number] 842 01 Medications acetaminophen 325 mg oral [...] 08/09/21 11:27:00 EDT, Route to Pharmacy Electronically, [facility], Partial fill upon patient request if the prescr... Start Date: 08/09/21 Status: Ordered EPINEPHrine 0.3 mg injectable solution = 0.3 mg, Intramuscular, Once, PRN Anaphylactic Reaction, Use for anaphylactic reaction. may repeatif necessary, # 2 each, 0 Refills, Soft Stop, 01/10/21 12:01:00 EST, [facility]/pharmacy #2330, Partial fill upon patient request if the [...] Mouth, Daily, # 90 tablet, 1 Refills, [facility] [address], 160.02, cm, 10/02/21 10:20:00 EDT, Height, 137.4, [...] Refills, Maintenance, 08/09/21 11:28:00 EDT, EC Capsule, [facility], Partial fill upon patient request if the prescription is for a schedule II opioid drug., 160.02, cm, ... Start Date: 08/09/21 Status: Ordered Trulicity Pen 1.5 mg/0.5 mL subcutaneous solution See Instructions, INJECT 0.5ML SUBCUTANEOUSLY EVERY WEEK. ROTATE INFECTION SITES., # 2 Unknown, 6 Refills, Maintenance, 08/17/22 13:33:00 EDT, [facility] [address]00, 160.02, cm, 10/02/21 10:20:00 EDT, Height, 137.4, [...] Care Nurse Name: Kay Cormier NP Position: [facility] PC[facility] Associate Professional Member Role: PCP Address: Address: [address] [place] [address]- Name: Marilyn Razo RN Position: S RN Member Role: Primary Care Nurse Name: Shazia Hughes RN Position: S RN Member Role: Primary Care Nurse Care Team Related Persons Name: FAVIOLA FINA Address: home [address] [place] [address] Name: JAMA MALONE Address: home [address] [place] [address] Name: KEYON WHITE
--- OUTSIDE RECORDS SUMMARY | 2023-06-28 00:49 | XMS_ITS | Continuity of Care Document ---
Author Name Unknown Organization [facility] ter Address [address] [place] [address]- Care Team Providers Care Surgical Technician Name Role Phone Emma Ramirez NP Primary Care Physician [phone] [place] [facility] [place] Date(s[place] 06/20/20 - 08/17/[address] [address]- [facility] Attending Physician: Jayden Waddell MD Admitting Physician: Jayden Waddell MD Referring Physician: Emma Ramirez NP Allergies, Adverse Reactions, Alerts No Known Medication Allergies Immunizations Given and Recorded Vaccine Date Status Refusal Reason tetanus/diphtheria/pertussis, acel(Tdap) 1 02/21/18 Given 1Result Comment: [02/21/2018] [facility] [id number] 842 01 Medications aspirin 81 mg oral [...] 5 Refills, Maintenance, 06/14/20 9:36:00 EDT, [facility]/pharmacy #1879, 161.1, cm, 05/30/20 8:03:00 EDT,Height, 149.3, kg, [...]
--- OUTSIDE RECORDS SUMMARY | 2023-06-28 00:49 | XMS_ITS | Continuity of Care Document ---
Author Name Unknown Organization [facility] Address [address] [place] [address] [address] [place] [address]- Care Team Providers Care Economic Analyst Name Role Phone James FONG, Emma Oreilly Primary Care Physician Encounter [facility] [place] Date(s): 05/05/21 - 05/12/[address] [place] [address]- Attending Physician: Knee RD, Lorrie Allergies, Adverse [...] Given 1Result Comment: Covid 19 mRNA lot [id number] exp 05-01-2021 [facility] 2Result Comment: covid-19 mRNa lot [id number] exp 03-31-2021 [facility] 3Result Comment: Covid-19 mRNA lot [id number] exp 03-31-2021 [facility] 4Result Comment: [02/21/2018] [facility] [address] 842 01 Medications aspirin 81 mg oral tablet 1 tablet = 81 mg, By Mouth, Daily, # 90 tablet, 0 Refills, Maintenance, 02/13/19 11:23:57 EDT, Tablet Start Date: 02/13/19 Status: Ordered bismuth subsalicylate 262 mg oral tablet 2 tablet = 524 mg, Chew, 4 times a day, for 14 days, # 112 tablet, 0 Refills, Acute 05/25/21 10:54:00 EDT, 05/11/21 10:54:00 EDT, Tablet, [facility]/pharmacy #2339, Partial fill upon patient request if the prescription is for a schedule II opioid drug., 161,... Start Date: 05/11/21 Stop Date: 05/25/21 Status: Ordered Bydureon BCise 2 mg/0.85 mL subcutaneous suspension, extended release = 2 mg, Subcutaneous Infusion, Every 7 days, Take 2mg once weekly on the same day. E11.65, # 3.4 mL, 5 Refills, Maintenance, 06/14/20 9:36:00 EDT, [facility]/pharmacy #2339, 161.1, cm, 05/30/20 8:03:00 EDT,Height, 149.3, kg, 04/27/20 2:13:00 EDT, Dry Weight Start Date: 06/14/20 Status: Ordered EPINEPHrine 0.3 mg injectable solution = 0.3 mg, Intramuscular, Once, PRN Anaphylactic Reaction, Use for anaphylactic reaction. may repeatif necessary, # 2 each, 0 Refills, Soft Stop, 01/10/21 12:01:00 EST, [facility]/pharmacy #2339, Partial fill upon patient [...] 0 Refills, Maintenance, 03/21/21 13:09:00 EDT, Tablet, [facility]/pharmacy #2339, Partial fill upon patient request if the prescription is for a schedule II opioid drug., 161.1, cm, 03/16/... Start Date: 03/21/21 Status: Ordered metFORMIN 1000 [...] days, # 56 tablet, 0 Refills, Acute 05/25/21 10:47:00 EDT, 05/11/21 10:47:00 EDT, Tablet, [facility], Partial fill upon patient request if the prescription is for a schedule II opioid drug., 1... Start Date: 05/11/21 Stop Date: 05/25/21 Status: Ordered Protonix 20 mg oral delayed [...] tablet, 1 Refills, Maintenance, 07/02/20 9:23:00 EDT, [facility]/pharmacy #2339, 161.1, cm, 06/20/20 8:16:00 EDT, Height, 149.3, kg, 04/27/20 2:13:00 EDT, Dry Weight Start Date: 07/02/20 Status: Ordered tetracycline 250 mg oral capsule 1 capsule = 250 mg, By Mouth, 4 times a day, for 14 days, # 56 capsule, 0 Refills, Acute 05/25/21 10:53:00 EDT, 05/11/21 10:53:00 EDT, Capsule, [facility]/pharmacy #2339, Partial fill upon patient request if the prescription is for a schedule II opioid drug.... Start Date: 05/11/21 Stop Date: 05/25/21 Status: Ordered Trulicity Pen 1.5 mg/0.5 mL subcutaneous solution See Instructions, 0.5 ML SUBCUTANEOUS INJECTION EVERY WEEK,INSTR:ROTATE INJECTION SITES, # 2 Unknown, 6 Refills, Maintenance, [facility] STORE 57486, 161.1, cm, 10/06/20 10:55:00 EST, Height, 149.3, [...] oldest [Reference Range]: 1 Height 161 cm (05/05/21 11:42 AM) Weight 140.6 kg (05/05/21 11:42 AM) Body Mass Index [18.5-24.99] 54.24 *>HHI* (05/05/21 11:42 AM) Social History Social History Type Response Smoking Status Never smoker; Tobacc o user in household: No entered on: 02/21/18 Sex
--- OUTSIDE RECORDS SUMMARY | 2023-06-28 00:49 | XMS_ITS | Continuity of Care Document ---
Author Name Unknown Organization [facility] ter Address [address] [place] [address]- Care Team Providers Care Chief Wellness Officer Name Role Phone James FONG, Emma Oreilly Primary Care Physician [place] [facility] [place] - 04/27/[address] [address]- [facility] Discharge Disposition: A-D/C Walkout Attending Physician: Not on Staff, Attending MD Admitting Physician: Not on Staff, Admitting MD Referring Physician: Not on Staff, Referring MD Allergies, Adverse Reactions, Alerts No Known Medication Allergies Immunizations Given and Recorded Vaccine Date Status Refusal Reason tetanus/diphtheria/pertussis, acel(Tdap) 1 02/21/18 Given 1Result Comment: [02/21/2018] [facility] [address] 842 01 Medications aspirin 81 mg oral tablet 1 tablet = 81 mg, By Mouth, Daily, # 90 tablet, 0 Refills, Maintenance, 02/13/19 11:23:57 EDT, Tablet Start Date: 02/13/19 Status: Ordered Bactrim DS 800 mg-160 mg oral tablet 1 tablet, By Mouth, 2 times a day, for 10 days, # 20 tablet, 0 Refills, Acute 04/28/20 15:14:00 EDT, 04/18/20 15:14:00 EDT, Tablet, [facility], 1 tablet By Mouth 2 times a day,x10 days, 161.1, cm, 02/15/20 14:50:00 EDT, Height, 141, kg, 04/19/... Start Date: 04/18/20 Stop Date: 04/28/20 Status: Ordered cholecalciferol 50,000 intl units oral capsule 1 capsule = 50,000 International_Units, By Mouth, Every week, # 5 capsule, 0 Refills, Maintenance, 02/15/20 15:08:00 EDT, Capsule, [facility]/pharmacy #4471, 161.1, cm, 02/15/20 14:50:00 EDT, Height, 141, kg, 04/19/19 4:24:00 EDT, Dry Weight Start Date: 02/15/20 Status: Ordered ferrous sulfate 325 mg oral tablet See Instructions, 1 tablet By Mouth QOD, # 30 tablet, 0 Refills, Maintenance, 04/11/20 16:08:00 EDT, Tablet, [facility]/pharmacy #2339, 161.1, cm, 02/15/20 14:50:00 EDT, Height, 141, kg, 04/19/19 4:24:00 EDT, Dry Weight Start Date: 04/11/20 Status: Ordered metFORMIN 1000 mg oral tablet 1 tablet = 1,000 mg, By Mouth, 2 times a day, This is correct dose. 2000mg total daily dose., # 60 tablet, 0 Refills, Maintenance, 02/15/20 16:07:00 EDT, [facility]/pharmacy #4471, 161.1, cm, 02/15/20 14:50:00 EDT, Height, 141, kg, 04/19/19 4:24:00 EDT, Dry... Start Date: 02/15/20 Status: Ordered terbinafine 1% topical cream 1 application, Topically, 2 times a day, # 15 Gm, 0 Refills, Maintenance, 04/18/20 15:15:00 EDT, Cream, [facility]/pharmacy #2339, 1 application Topically 2 times [...] to oldest [Reference Range]: 1 2 3 Weight 149.3 kg (04/27/20 2:13 AM) 149.3 kg (04/27/20 12:30 AM) Oxygen Saturation [94-100 %] 100 % (04/27/20 2:13 AM) 99 % (04/27/20 12:30 AM) 100 % (04/27/20:22 AM) Pulse Rate [55-90 bpm] 71 bpm (04/27/20:13 AM) 83 bpm (04/27/20 12:30 AM) 91 bpm *H* (04/27/20:22 AM) Blood Pressure [90-138/55-84 mm Hg] 131/71mm Hg (04/27/20 2:13 AM) 130/73mm Hg (04/27/20 12:30 AM) Respiratory Rate [16-30 br/min] 18 br/min (04/27/20 2:13 AM) 20 br/min (04/27/20 12:30 AM) 20 br/min (04/27/20:22 AM) Temperature [96.8-100.4 DegF] 98.5 DegF (04/27/20 2:13 AM) 98.3 DegF (04/27/20 12:30 AM) Mode of Delivery (Oxygen) Room air (04/27/20 2:13 AM) Room air (04/27/20 12:30 AM) Blood pressure sites Arm, right (04/27/20 2:13 AM) Arm, left (04/27/20 12:30 AM) Temperature Route Oral (04/27/20 2:13 AM) Oral (04/27/20 12:30 AM) Dry Weight 149.3 kg (04/27/20 2:13 AM) 149.3 kg (04/27/20 12:30 AM) Social History Social History Type Response Smoking Status Never smoker; Tobacc o user in household: No entered on: 02/21/18 Sex
--- OUTSIDE RECORDS SUMMARY | 2023-06-28 00:49 | XMS_ITS | Continuity of Care Document ---
Author Name Unknown Organization [facility] Address Unknown Care Team Providers Care Naval Aircrewman Mechanical Name Role Phone James FONG, Emma Oreilly Primary Care Physician Encounter [facility] [place] Date(s): 07/10/21 - 08/09/21 [facility] Allergies, Adverse Reactions, Alerts [...] Given 1Result Comment: Covid 19 mRNA lot [id number] exp 05-01-2021 [facility] 2Result Comment: covid-19 mRNa lot [id number] exp 03-31-2021 [facility] 3Result Comment: Covid-19 mRNA lot [id number] exp 03-31-2021 [facility] 4Result Comment: [02/21/2018] [facility] [address] 842 01 Medications acetaminophen 325 mg oral [...] 11:27:00 EDT, Route to Pharmacy Electronically, [facility], Partial fill upon patient request if the prescr... Start Date: 08/09/21 Status: Ordered EPINEPHrine 0.3 mg injectable solution = 0.3 mg, Intramuscular, Once, PRN Anaphylactic Reaction, Use for anaphylactic reaction. may repeatif necessary, # 2 each, 0 Refills, Soft Stop, 01/10/21 12:01:00 EST, [facility]/pharmacy #1157, Partial fill upon patient request if the [...] Maintenance, 08/09/21 11:28:00 EDT, EC Capsule, [facility], Partial fill upon patient request if the prescription is for a schedule II opioid drug., 160.02, cm, ... Start Date: 08/09/21 Status: Ordered oxyCODONE 5 mg oral tablet 5 mg, 1, tablet, By Mouth, Every 4 hours, PRN, # 12 tablet, Refills 0, Tot. Refills 0, Maintenance,Pain , Moderate, 08/09/21 11:27:00 EDT, Route to Pharmacy Electronically, [facility],Partial fill upon patient request if the prescripti... Start Date: 08/09/21 Status: Ordered Trulicity Pen 1.5 mg/0.5 mL subcutaneous solution See Instructions, 0.5 ML SUBCUTANEOUS INJECTION EVERY WEEK,INSTR:ROTATE INJECTION SITES, # 2 Unknown, 6 Refills, 07/29/21 14:27:00 EDT, [facility]/pharmacy #2339, 165, cm, 07/27/21 12:33:00 EDT, [...]
--- OUTSIDE RECORDS SUMMARY | 2023-06-28 00:49 | XMS_ITS | Continuity of Care Document ---
Author Name Unknown Organization [facility] Address Unknown Care Team Providers Care Microbiology Lab Technician Name Role Phone Casa FONG, Kay Villela Primary Care Physician [phone] Encounter [facility] [place] Date(s): 10/05/21 - 10/12/21 [facility] Attending Physician: Lorrie Mcgowan RD [...] Given 1Result Comment: Covid 19 mRNA lot [id number] exp 05-01-2021 [facility] 2Result Comment: covid-19 mRNa lot [id number] exp 03-31-2021 [facility] 3Result Comment: Covid-19 mRNA lot [id number] exp 03-31-2021 [facility] 4Result Comment: [02/21/2018] [facility] [address] 842 01 Medications acetaminophen 325 mg oral [...] 08/09/21 11:27:00 EDT, Route to Pharmacy Electronically, [facility], Partial fill upon patient request if the prescr... Start Date: 08/09/21 Status: Ordered EPINEPHrine 0.3 mg injectable solution = 0.3 mg, Intramuscular, Once, PRN Anaphylactic Reaction, Use for anaphylactic reaction. may repeatif necessary, # 2 each, 0 Refills, Soft Stop, 01/10/21 12:01:00 EST, [facility]/pharmacy #9868, Partial fill upon patient request if the [...] Mouth, Daily, # 30 tablet, 5 Refills, [facility] STORE 22964, 160.02, cm, 08/09/21 4:06:00 EDT, Height, 137.4, [...] Refills, Maintenance, 08/09/21 11:28:00 EDT, EC Capsule, [facility], Partial fill upon patient request if the prescription is for a schedule II opioid drug., 160.02, cm, ... Start Date: 08/09/21 Status: Ordered Trulicity Pen 1.5 mg/0.5 mL subcutaneous solution See Instructions, 0.5 ML SUBCUTANEOUS INJECTION EVERY WEEK,INSTR:ROTATE INJECTION SITES, # 2 Unknown, 6 Refills, 07/29/21 14:27:00 EDT, [facility]/pharmacy #2339, 165, cm, 07/27/21 12:33:00 [...]
--- OUTSIDE RECORDS SUMMARY | 2023-06-28 00:49 | XMS_ITS | Continuity of Care Document ---
Author Name Unknown Organization [facility] Address [address] [place] [address]- Care Team Providers Care Make Up Operator Helper Name Role Phone James FONG, Emma Oreilly Primary Care Physician [place] [facility] [place] 01/06/21 - 02/05/21 [facility] [address] [place] [address]- Allergies, Adverse Reactions, Alerts Substance Reaction Severity [...] Given 1Result Comment: Covid 19 mRNA lot [id number] exp 05-01-2021 [facility] 2Result Comment: covid-19 mRNa lot [id number] exp 03-31-2021 [facility] 3Result Comment: Covid-19 mRNA lot [id number] exp 03-31-2021 [facility] 4Result Comment: [02/21/2018] [facility] [address] 842 01 Medications aspirin 81 mg oral [...] 5 Refills, Maintenance, 06/14/20 9:36:00 EDT, [facility]/pharmacy #2339, 161.1, cm, 05/30/20 8:03:00 EDT,Height, 149.3, kg, 04/27/20 2:13:00 EDT, Dry Weight Start Date: 06/14/20 Status: Ordered EPINEPHrine 0.3 mg injectable solution = 0.3 mg, Intramuscular, Once, PRN Anaphylactic Reaction, Use for anaphylactic reaction. may repeatif necessary, # 2 each, 0 Refills, Soft Stop, 01/10/21 12:01:00 EST, [facility]/pharmacy #2339, Partial fill upon patient request if the prescription is for... Start Date: 01/10/21 Status: Ordered ferrous sulfate 325 mg oral tablet See Instructions, 1 tablet By Mouth every other day, # 45 tablet, 3 Refills, Maintenance, 06/14/20 14:43:00 EDT, [facility]/pharmacy #2339, 161.1, cm, 05/30/20 8:03:00 EDT, Height, [...] 2 Refills, Maintenance, 12/07/20 9:42:00 EST, Tablet, [facility]/pharmacy #2339, Partial fill upon patient request if the prescription is for a schedule II opioid drug., 161.1, cm, 10/06/20 10:55:00 EST, [facility]... Start Date: 12/07/20 Status: Ordered metFORMIN 1000 mg oral tablet 1 tablet = 1,000 mg, By Mouth, 2 times a day, # 180 tablet, 3 Refills, Maintenance, 10/06/20 11:00:00 EST, [facility]/pharmacy #2339, 161.1, cm, 10/06/20 10:55:00 EST, Height, [...] Refills, Maintenance, 07/02/20 9:23:00 EDT, [facility]/pharmacy #2339, 161.1, cm, 06/20/20 8:16:00 EDT, Height, 149.3, kg, 04/27/20 2:13:00 EDT, Dry Weight Start Date: 07/02/20 Status: Ordered terbinafine 1% topical cream 1 application, Topically, 2 times a day, # 15 Gm, 0 Refills, Maintenance, 04/18/20 15:15:00 EDT, Cream, [facility]/pharmacy #2339, 1 application Topically 2 times a day, 161.1, cm, 02/15/20 14:50:00 EDT, Height, 141, kg, 04/19/19 4:24:00 EDT, Dry Weight Start Date: 04/18/20 Status: Ordered Trulicity Pen 1.5 mg/0.5 mL subcutaneous solution See Instructions, 0.5 ML SUBCUTANEOUS INJECTION EVERY WEEK,INSTR:ROTATE INJECTION SITES, # 2 Unknown, 6 Refills, Maintenance, [facility], 161.1, cm, 10/06/20 10:55:00 EST, Height, 149.3, [...]
--- OUTSIDE RECORDS SUMMARY | 2023-06-28 00:49 | XMS_ITS | Continuity of Care Document ---
Author Name Unknown Organization [facility] Hussein Address [address] [place] [address]- Care Team Providers Care Weasand Trimmer Name Role Phone Emma Ramirez NP Primary Care Physician [phone] Encounter [facility] [place](s): 04/28/20 - 05/05/20 [facility] Adult [address] [place] [address]- [facility] Encounter Diagnosis Morbid obesity(Discharge Diagnosis) - 04/28/20 Depression(Discharge Diagnosis) - 04/28/20 Chest pain(Discharge Diagnosis) - 04/28/20 Prediabetes(Discharge Diagnosis) - 04/28/20 Iron deficiency anemia(Discharge Diagnosis) - 04/28/20 Anxiety(Discharge Diagnosis) - 04/28/20 Attending Physician: Emma Ramirez NP Allergies, Adverse Reactions, Alerts No Known Medication Allergies Immunizations Given and Recorded Vaccine Date Status Refusal Reason tetanus/diphtheria/pertussis, acel(Tdap) 1 02/21/18 Given 1Result Comment: [02/21/2018] [facility] [id number] 01 Medications aspirin 81 mg oral [...] tablet, 0 Refills, Maintenance, 02/15/20 16:07:00 EDT, [facility]/pharmacy #[id number], 161.1, cm, 02/15/20 14:50:00 EDT, Height, 141, kg, 04/19/19 4:24:00 EDT, Dry... Start Date: 02/15/20 Status: Ordered sertraline 50 mg oral tablet See Instructions, 1/2 tablet By Mouth Daily for 1 week then 1 tablet thereafter, # 30 tablet, 1 Refills, Maintenance, 04/28/20 14:27:00 EDT, [facility]/pharmacy #[id number], 161.1, cm, 04/28/20 11:33:00 EDT, Height, 149.3, kg, 04/27/20 2:13:00 EDT, Dry Weight Start Date: 04/28/20 Status: Ordered terbinafine 1% topical cream 1 application, Topically, 2 times a day, # 15 Gm, 0 Refills, Maintenance, 04/18/20 15:15:00 EDT, Cream, [facility]/pharmacy #[id number], 1 application Topically 2 times a day, 161.1, cm, 02/15/20 14:50:00 EDT, Height, 141, kg, 04/19/19 4:24:00 EDT, Dry Weight Start Date: 04/18/20 Status: Ordered Victoza 18 mg/3 mL subcutaneous solution See Instructions, 0.6 mg Subcutaneous Injection Daily for 1 week then 1.2mg daily., # 6 mL, 0 Refills, Maintenance, 05/03/20 13:38:00 EDT, Solution, [facility]/pharmacy #[id number], 161.1, cm, 04/28/20 11:33:00 EDT, Height, [...] Health Status Clinical Service Informant Morbid obesity Discharge Diagnosis 04/28/20 Depression Discharge Diagnosis 04/28/20 Chest pain Discharge Diagnosis 04/28/20 Prediabetes Discharge Diagnosis 04/28/20 Iron deficiency anemia Discharge Diagnosis 04/28/20 Anxiety Discharge Diagnosis 04/28/20 Vital Signs Most recent to oldest [Reference Range]: 1 Height 161.1 cm (04/28/20 11:33 AM) Social History Social History Type Response Smoking Status Never smoker; Tobacc o user in household: No entered on: 02/21/18 Sex
--- OUTSIDE RECORDS SUMMARY | 2023-06-28 00:49 | XMS_ITS | Continuity of Care Document ---
Author Name Unknown Organization [facility] Hussein lt Address [address] [place] [address]- Care Team Providers Care Automobile Drivers Name Role Phone James FONG, Emma Oreilly Primary Care Physician [place] [facility] [place] 05/05/21 - 06/04/21 [facility] Adult [address] [place] [address]- Allergies, Adverse Reactions, Alerts Substance Reaction Severity [...] Given 1Result Comment: Covid 19 mRNA lot [id number] exp 05-01-2021 [facility] 2Result Comment: covid-19 mRNa lot [id number] exp 03-31-2021 [facility] 3Result Comment: Covid-19 mRNA lot [id number] exp 03-31-2021 [facility] 4Result Comment: [02/21/2018] [facility] [id number] 01 Medications aspirin 81 mg oral [...] 5 Refills, Maintenance, 06/14/20 9:36:00 EDT, [facility]/pharmacy #[id number], 161.1, cm, 05/30/20 8:03:00 EDT,Height, 149.3, kg, 04/27/20 2:13:00 EDT, Dry Weight Start Date: 06/14/20 Status: Ordered EPINEPHrine 0.3 mg injectable solution = 0.3 mg, Intramuscular, Once, PRN Anaphylactic Reaction, Use for anaphylactic reaction. may repeatif necessary, # 2 each, 0 Refills, Soft Stop, 01/10/21 12:01:00 EST, [facility]/pharmacy #[id number], Partial fill upon patient [...] Refills, Maintenance, 03/21/21 13:09:00 EDT, Tablet, [facility]/pharmacy #[id number], Partial fill upon patient request if the prescription is for a schedule II opioid drug., 161.1, cm, ... Start Date: 03/21/21 Status: Ordered metFORMIN 1000 mg oral tablet 1 tablet = 1,000 mg, By Mouth, 2 times a day, # 180 tablet, 3 Refills, Maintenance, 10/06/20 11:00:00 EST, [facility]/pharmacy #[id number], 161.1, cm, 10/06/20 10:55:00 [...] 1 Refills, Maintenance, 07/02/20 9:23:00 EDT, [facility]/pharmacy #[id number], 161.1, cm, 06/20/20 8:16:00 EDT, Height, 149.3, kg, 04/27/20 2:13:00 EDT, Dry Weight Start Date: 07/02/20 Status: Ordered Trulicity Pen 1.5 mg/0.5 mL subcutaneous solution See Instructions, 0.5 ML SUBCUTANEOUS INJECTION EVERY WEEK,INSTR:ROTATE INJECTION SITES, # 2 Unknown, 6 Refills, Maintenance, [facility] STORE [id number], 161.1, cm, 10/06/20 10:55:00 EST, Height, 149.3, [...]
--- OUTSIDE RECORDS SUMMARY | 2023-06-28 00:49 | XMS_ITS | Continuity of Care Document ---
Author Name Unknown Organization [facility] Address [address] [place] [address] [address] [place] [address]- Care Team Providers Care Medical Genetics Director Name Role Phone James FONG, Emma Oreilly Primary Care Physician [place] [facility] [place]18[place] - 11/25/[address] [place] [address]- Attending Physician: Roslyn RDLorrie Allergies, Adverse Reactions, Alerts No Known Medication Allergies Immunizations Given and Recorded Vaccine Date Status Refusal Reason tetanus/diphtheria/pertussis, acel(Tdap) 1 02/21/18 Given 1Result Comment: [02/21/2018] [facility] [place] [id number] 842 01 Medications aspirin 81 mg oral [...] Dry Weight Start Date: 06/14/20 Status: Ordered ferrous sulfate 325 mg oral tablet See Instructions, 1 tablet By Mouth every other day, # 45 tablet, 3 Refills, Maintenance, 06/14/20 14:43:00 EDT, [facility]/pharmacy #[id number], 161.1, cm, 05/30/20 8:03:00 EDT, Height, [...] Weight Start Date: 05/10/20 Status: Ordered levothyroxine 75 mcg (0.075 mg) oral capsule 1 capsule = 75 mcg, By Mouth, Daily, Obtain lab 6 to 8 weeks after starting, # 30 capsule, 2 Refills, Maintenance, 10/06/20 11:02:00 EST, Capsule, [facility]/pharmacy #[id number], 161.1, cm, 10/06/20 10:55:00 EST, Height, 149.3, kg, 04/27/20 2:13:00 EDT, Dry Weight Start Date: 10/06/20 Status: Ordered metFORMIN 1000 mg oral tablet 1 tablet = 1,000 mg, By Mouth, 2 times a day, # 180 tablet, 3 Refills, Maintenance, 10/06/20 11:00:00 EST, [facility]/pharmacy #[id number], 161.1, cm, 10/06/20 10:55:00 EST, [...] 03/17/27 8:49:00 EDT, 10/07/20 8:49:00 EST, Solution, [facility]/phar... Start Date: 10/07/20 Stop Date: 03/17/27 Status: [...] 0 Refills, Maintenance, 04/18/20 15:15:00 EDT, Cream, [facility]/pharmacy #[id number], 1 application Topically 2 times a day, 161.1, cm, 02/15/20 14:50:00 EDT, Height, 141, kg, 04/19/19 4:24:00 EDT, Dry Weight Start Date: 04/18/20 Status: Ordered Trulicity Pen 1.5 mg/0.5 mL subcutaneous solution See Instructions, 0.5 ML SUBCUTANEOUS INJECTION EVERY WEEK,INSTR:ROTATE INJECTION SITES, # 2 Unknown, 6 Refills, Maintenance, [facility] STORE [id number], 161.1, cm, 10/06/20 10:55:00 EST, Height, 149.3, [...]
--- OUTSIDE RECORDS SUMMARY | 2023-06-28 00:49 | XMS_ITS | Continuity of Care Document ---
Author Name Unknown Organization [facility] Hussein lt Address [address] [place] [address]- Care Team Providers Care Airport Guide Name Role Phone James FONG, Emma Oreilly Primary Care Physician Encounter [facility] [place] Date(s): 07/11/21 - 08/10/21 [facility] Adult [address] [place] [address]- Allergies, Adverse Reactions, Alerts Substance Reaction Severity [...] Given 1Result Comment: Covid 19 mRNA lot [id number] exp 05-01-2021 [facility] 2Result Comment: covid-19 mRNa lot [id number] exp 03-31-2021 [facility] 3Result Comment: Covid-19 mRNA lot [id number] exp 03-31-2021 [facility] 4Result Comment: [02/21/2018] [facility] [id number] 842 01 Medications acetaminophen 325 mg oral [...] 08/09/21 11:27:00 EDT, Route to Pharmacy Electronically, [facility], Partial fill upon patient request if the prescr... Start Date: 08/09/21 Status: Ordered EPINEPHrine 0.3 mg injectable solution = 0.3 mg, Intramuscular, Once, PRN Anaphylactic Reaction, Use for anaphylactic reaction. may repeatif necessary, # 2 each, 0 Refills, Soft Stop, 01/10/21 12:01:00 EST, [facility]/pharmacy #[id number], Partial fill upon patient [...] Refills, Maintenance, 08/09/21 11:28:00 EDT, EC Capsule, [facility], Partial fill upon patient request if the prescription is for a schedule II opioid drug., 160.02, cm, ... Start Date: 08/09/21 Status: Ordered oxyCODONE 5 mg oral tablet 5 mg, 1, tablet, By Mouth, Every 4 hours, PRN, # 12 tablet, Refills 0, Tot. Refills 0, Maintenance,Pain , Moderate, 08/09/21 11:27:00 EDT, Route to Pharmacy Electronically, [facility],Partial fill upon patient [...]
--- NOTE | 2023-06-28 02:04 | ED.GENADULT ---
HPI - General Adult General Chief complaint: Skin/Abscess/Foreign Body Stated complaint: boils on back /Fever Time Seen by Provider: 06/28/23 01:14 Source: patient Mode of arrival: ambulatory Limitations: no limitations History of Present Illness HPI narrative: Patient comes to the emergency room complaining of having abscesses in the middle of her back. Patient states that all her symptoms started today. Patient states that she had a fever today which resolved after taking Tylenol. Patient states that she has recurrent abscesses in her back. Patient complaining of localized pain. Related Data Previous Rx's Medication Instructions Recorded clindamycin HCl 300 mg capsule 300 mg PO TID 7 days #21 caps 06/28/23 ketorolac 10 mg tablet 10 mg PO TID PRN pain #10 tabs 06/28/23 Allergies Allergy/AdvReac Type Severity Reaction Status Date / Time amoxicillin Allergy Severe Anaphylaxis Verified 06/27/23 22:38 vancomycin [From Vancocin] Allergy Swelling Verified 06/27/23 22:38 Review of Systems Review of Systems: Constitutional : No Weight loss, No Fever, No Chills, No Night Sweats, No Fatigue, No Malaise ENT/Mouth : No Hearing loss, No Ear Pain, No Nasal Congestion, No Sinus Pain, No Hoarseness, No sore throat, No Rhinorrhea, No Swallowing Difficulty Eyes: No Eye Pain, No Swelling, No Redness, No Foreign Body, No Discharge, No Vision Changes Cardiovascular : No Chest Pain, No SOB, No Dyspnea on Exertion, No Orthopnea, No Edema, No Palpitations Respiratory : No Cough, No Sputum, No Wheezing, No Smoke Exposure, No Dyspnea Gastrointestinal : No Nausea, No Vomiting, No Diarrhea, No Constipation, No abdominal Pain, No Hematochezia, No Melena Genitourinary : no irregular bleeding, No Dysuria, No Urinary Frequency, No Hematuria, No Urinary Incontinence, No Urgency, No Flank Pain, No Urinary Flow Changes, No Hesitancy Musculoskeletal : No joint pain, No Myalgias, No Joint Swelling Skin : Complaining of abscesses along the midline or her back in the lower thoracic area Neuro : No Weakness, No Numbness, No Paresthesias, No Loss of Consciousness, No Dizziness, No Headache Psych : No Anxiety/Panic, No Depression, No SI/HI/AH/VH, No Social Issues, Heme/Lymph: No Bruising, No Bleeding,No Lymphadenopathy Endocrine : No Polyuria, No Polydipsia, No Temperature Intolerance [facility] Social History Social History Advance Directives: No Advance Directives Information Provided: No Physical Exam ED Vital Signs: Vital Signs - 24 hr 06/27/23 22:39 Temperature 98 F Pulse Rate 65 Respiratory Rate 18 Blood Pressure 124/68 Pulse Oximetry 100 Oxygen Delivery Method Room Air BMI result Body Mass Index 47.5 Const Other: Appearance: Alert. Oriented X3. No acute distress. Eyes: Pupils equal, round and reactive to light. ENT: Pharynx normal. Neck: Normal inspection. Neck supple. No lymph nodes noted. No crepitus CVS: Normal heart rate and rhythm. Pulses normal. Normal S1 and S2 Respiratory: No respiratory distress. Breath sounds normal. No Wheezing. No rales Abdomen: Soft and nontender. No rigidity. No distention. Skin: Skin warm and dry. Normal skin color. Normal skin turgor. Patient has a 1 mm aperture in the middle of the back, draining scant amount of pus. 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 Bedside ultrasound does not show any significant amount of abscess/pus that could be drained. Extremities: No lower extremity edema. No Lacerations. No Rash Neuro: Oriented X 3. No motor deficit. No sensory deficit. Moving all extremities. No slurred speech. CN 2 through 12 grossly intact Psych: calm, cooperative, normal affect Course Course Course Narrative: -patient reports that she has fever. All of her labs pending. -patient was given p.o. clindamycin, patient has anaphylaxis to penicillin -all of patient's labs are pending -pt afebrile -sign-out given to Dr. Singh Medical Decision Making Differential Diagnosis Differential Diagnoses: The differential diagnosis associated with the presentation includes (Cellulitis, absence) Admission/Observation Consideration of admission/observation: Escalation of care including admission/observation considered (Patient is in pain due to the abscesses. All of the patient's labs pending, admission being considered pending lab results) Discharge Plan Discharge Clinical Impression: Abscess of skin or subcutaneous tissue Patient Disposition: Home, Self-Care Instructions: Cellulitis (ED) Additional Instructions: Please follow-up with your primary care physician tomorrow. If you have any worsening or new symptoms, please return to the emergency room or call 911 Prescriptions: New clindamycin HCl 300 mg capsule 300 mg PO TID 7 Days Qty: 21 0RF ketorolac 10 mg tablet 10 mg PO TID PRN (Reason: pain) Qty: 10 0RF
[2023-06-28] MEDS: Ketorolac Tromethamine 30 MG/ML VIAL IVPUSH (02:10)
[2023-06-28 02:21] LABS: MANUAL DIFF FLAG NO
[2023-06-28] MEDS: Clindamycin HCL 300 MG CAPSULE PO (02:22)
[2023-06-28 02:23] LABS: Basophils Percent Auto 0.5 % (0-2); Eosinophils Absolute Auto 0.2 X10*3/uL (0.0-0.4); Eosinophils Percent Auto 2.5 % (0-4); Hematocrit 39.6 % (37.0-47.0); Hemoglobin 12.2 g/dl (12.0-16.0); Imm Gran Abs Auto 0.02 X10*3/uL (0.00-0.03); Imm Gran Pct Auto 0.3 % (0.0-0.4); Lymphocytes Absolute Auto 3.9 X10*3/uL (1.2-4.9); Lymphocytes Percent Auto 51.4 % (20-40); Mean Corpuscular HGB Conc 30.8 g/dl (31.0-35.0); Mean Corpuscular Hemoglobin 25.4 pg (27.0-33.0); Mean Corpuscular Volume 82.5 fL (80.0-98.0); Mean Platelet Volume 8.8 fL (9.4-12.3); Monocytes Absolute Auto 0.4 X10*3/uL (0.1-1.2); Monocytes Percent Auto 5.3 % (2-11); Neutrophils Absolute Auto 3.1 x10*3/uL (2.0-8.3); Platelet Count 370 X10*3/uL (160-400); Red Cell Distribution Width 13.8 % (11.0-16.0); White Blood Count 7.6 X10*3/uL (4.8-10.8)
[2023-06-28 02:39] LABS: Lactic Acid 1.3 mmol/L (0.5-2.0)
[2023-06-28 03:29] LABS: Anion Gap 13 (12-20)
[2023-06-28 03:34] LABS: Alanine Aminotransferase 12 U/L (0-31); Albumin Level 3.2 g/dL (3.5-5.0); Alkaline Phosphatase 73 U/L (39-117); Aspartate Amino Transferase 14 U/L (5-31); Bilirubin Direct < 0.2 mg/dL (0.0-0.5); Bilirubin Total 0.1 mg/dL (0.0-1.0); Blood Urea Nitrogen 9 mg/dL (9-16); Calcium 8.3 mg/dL (8.4-10.2); Carbon Dioxide 23 mmol/L (22-29); Chloride 108 mmol/L (96-108); Creatinine Clr Calc Pharmacy 128.2; Estimated Glomerular Filt Rate > 60; Glucose Random 129 mg/dL (60-115); Potassium 3.7 mmol/L (3.3-5.1); Sodium 140 mmol/L (135-145); Total Protein 7.2 g/dL (6.5-8.0)
[2023-06-28 05:07] VITALS: BP 112/62; PULSE 54; RESP 16; TEMP 36.6; O2SAT 100
== END 2023-06-28 05:53 | disposition home or self-care (01) ==
PROVIDERS: Emergency Provider Emergency Medicine
DX: L02.212 Cutaneous abscess of back [any part, except buttock and flank] (principal); R50.9 Fever, unspecified; Z79.899 Other long term (current) drug therapy
CPT/HCPCS: 36415; 80048; 80076; 83605; 85025; 87040; 96374; 99283; 99284; J1885

== ENCOUNTER 2023-12-03 15:12 | Emergency (ER) | payer OTHER, SELFPAY ==
[2023-12-03 15:48] VITALS: BP 106/58; PULSE 80; RESP 18; TEMP 37.1; O2SAT 99; BMI 46.4
[2023-12-03 18:44] LABS: IDNOW Serial# 08D9AD1C
[2023-12-03 18:45] LABS: Strep A Nucleic Acid Negative (Negative)
--- NOTE | 2023-12-03 18:58 | ED.GENADULT ---
HPI - General Adult General Chief complaint: Upper Respiratory Symptoms Stated complaint: high fever, sore throat Related Data Previous Rx's Medication Instructions Recorded clindamycin HCl 300 mg capsule 300 mg PO TID 7 days #21 caps 06/28/23 ketorolac 10 mg tablet 10 mg PO TID PRN pain #10 tabs 06/28/23 Allergies Allergy/AdvReac Type Severity Reaction Status Date / Time amoxicillin Allergy Severe Anaphylaxis Verified 06/27/23 22:38 vancomycin [From Vancocin] Allergy Swelling Verified 06/27/23 22:38 PMF Social History Social History Advance Directives: No Advance Directives Information Provided: No Physical Exam ED Vital Signs: Vital Signs - 24 hr 12/03/23 15:48 Temperature 98.8 F Pulse Rate 80 Respiratory Rate 18 Blood Pressure 106/58 L Pulse Oximetry 99 Oxygen Delivery Method Room Air BMI result Body Mass Index 46.4 Course Course Course Narrative: This is an RME: Additional HPI, ROS, PE not included below will be deferred to primary provider. this is a 43-year-old female presenting to the emergency department with complaints of sore throat, fever, runny nose x3 days. patient is afebrile, tolerating secretions well, speaking in full sentences. Plan: Viral swabs, strep Medical Decision Making Lab Data Labs: Lab Results 12/03/23 Range/Units 18:18 S. pyogenes GrpA LIANE Negative (Negative) Discharge Plan Discharge Prescriptions: No Action clindamycin HCl 300 mg capsule 300 mg PO TID 7 Days Qty: 21 0RF ketorolac 10 mg tablet 10 mg PO TID PRN (Reason: pain) Qty: 10 0RF
[2023-12-03 19:12] LABS: COVID-19 Test Negative (Negative); IDNOW Serial# 58CA691E; IDNOW Serial# 9DB6401D; Influenza A Negative (Negative); Influenza B2 Negative (Negative)
[2023-12-03 21:04] VITALS: BP 123/67; PULSE 92; RESP 20; O2SAT 100
--- NOTE | 2023-12-03 21:05 | ED_ITS ---
HPI - URI/Sore Throat General Chief Complaint: Upper Respiratory Symptoms Stated Complaint: high fever, sore throat Time Seen by Provider: 12/03/23 20:55 History of Present Illness HPI Narrative: Patient is a 44-year-old female presents today with having coughing congestion upper respiratory symptoms been ongoing for the last 3 days. Also complaining of sore throat. Patient is from home. Positive subjective fever at home. No exact temperature was taken. Feels generalized malaise. There is no pain on urination. There is no increasing frequency. Patient denies any new medications. Denies any recent travel. Related Data Previous Rx's Medication Instructions Recorded clindamycin HCl 300 mg capsule 300 mg PO TID 7 days #21 caps 06/28/23 ketorolac 10 mg tablet 10 mg PO TID PRN pain #10 tabs 06/28/23 Allergies Allergy/AdvReac Type Severity Reaction Status Date / Time amoxicillin Allergy Severe Anaphylaxis Verified 06/27/23 22:38 vancomycin [From Vancocin] Allergy Swelling Verified 06/27/23 22:38 Review of Systems Review of Systems: Positive coughing congestion upper respiratory symptoms Yes all other systems are reviewed and are negative [facility] Past Medical History Attestation statement: The following information was validated with the patient. Onset Date is defined in the Problem List Problems that require an onset date and time if occurred within 24 hrs of arrival to the ED Aortic Dissection and Rupture; Neurologic impairment; Cardiopulmonary Arrest; Endotracheal Intubation; Insertion or Replacement of Mechanical Circulatory Assist Device Social History Social History Advance Directives: No Advance Directives Information Provided: No Physical Exam Vital Signs: Vital Signs: Last Vital Signs Temp 98.8 F 12/03/23 15:48 Pulse 92 12/03/23 21:04 Resp 20 12/03/23 21:04 BP 123/67 12/03/23 21:04 Pulse Ox 100 12/03/23 21:04 O2 Del Method Room Air 12/03/23 21:04 BMI result Body Mass Index 46.4 Appearance: Alert. Oriented X3. No acute distress. Eyes: Pupils equal, round and reactive to light. ENT: Pharynx normal. Neck: Normal inspection. Neck supple. No lymph nodes noted. No crepitus CVS: Normal heart rate and rhythm. Pulses normal. Normal S1 and S2 Respiratory: No respiratory distress. Breath sounds normal. No Wheezing. No rales Abdomen: Soft and nontender. No rigidity. No distention. good BS x4 Skin: Skin warm and dry. Normal skin color. Normal skin turgor. Extremities: No lower extremity edema. Neurovascular intact to all extremities. No Lacerations. No Rash Neuro: Oriented X 3. No motor deficit. No sensory deficit. Moving all extermities. No slurred speech Medical Decision Making Medical Decision Making [facility] Narrative: Patient's COVID flu RSV and strep were all negative. Likely a viral syndrome patient's O2 sat is normal afebrile here in the emergency department. Lungs are clear. Will discharge patient home close follow-up on an outpatient basis. Differential Diagnosis Pneumonia, flu, RSV, COVID, strep, mononucleosis Admission/Observation Consideration of admission/observation: Escalation of care including admission/observation considered No nevus patient's status normal well-appearing no evidence of peritonsillar abscess on exam Lab Data [facility] Lab Attestation statement: I reviewed the patient's lab results. Labs: Lab Results 12/03/23 Range/Units 18:18 COVID-19 (PEGGY) Negative (Negative) COVID-19 Clin Com See Note Influenza Type A (LIANE) Negative (Negative) Influenza Type B (LIANE) Negative (Negative) Influenza A & B Note See Note S. pyogenes GrpA LIANE Negative (Negative) Prescription Management No need for antibiotic in the emergency department Discharge Plan Discharge Clinical Impression: Upper respiratory infection Patient Disposition: Home, Self-Care Instructions: Upper Respiratory Infection (ED) Prescriptions: No Action clindamycin HCl 300 mg capsule 300 mg PO TID 7 Days Qty: 21 0RF ketorolac 10 mg tablet 10 mg PO TID PRN (Reason: pain) Qty: 10 0RF Stand Alone Forms: Work/School Release
--- NOTE | 2023-12-03 21:22 | PC.NURSE ---
Pt seen and assessed by provider, no respiratory distress, pt able to speak in full sentence, denies any chest pain. This Rn reviewed discharge instruction with pt verbalized understanding.
== END 2023-12-03 21:25 | disposition home or self-care (01) ==
PROVIDERS: Emergency Provider Emergency Medicine Emergency Medical Services
DX: J06.9 Acute upper respiratory infection, unspecified (principal); R05.9 Cough, unspecified; J02.9 Acute pharyngitis, unspecified; Z11.52 Encounter for screening for COVID-19
CPT/HCPCS: 87502; 87635; 87651; 99283; 99284